=== PATIENT | male | born 1965 | race Caucasian/White ===

== ENCOUNTER 2019-12-06 15:48 | Outpatient (REF) | payer BC, SELFPAY | END 2019-12-06 15:49 | disposition home or self-care (01) | LOC: HO.LAB 15:48 | PROVIDERS: Visit Provider Internal Medicine | DX: Z20.828 Contact with and (suspected) exposure to other viral communicable diseases (principal) | CPT/HCPCS: 36415; 87635 ==

== ENCOUNTER 2020-01-09 09:47 | Outpatient (REF) | payer BC, SELFPAY | END 2020-01-09 09:48 | disposition home or self-care (01) | LOC: HO.LAB 09:47 | PROVIDERS: Visit Provider Internal Medicine | DX: Z20.828 Contact with and (suspected) exposure to other viral communicable diseases (principal) | CPT/HCPCS: C9803; U0003 ==

== ENCOUNTER 2024-08-21 09:47 | Outpatient (AMB) | payer BC, SELFPAY ==
--- NOTE | 2024-08-21 09:55 | A.OFFVIS_ITS ---
Vital Signs 3 08/21/24 09:56 Height 6 ft Weight 291 lb BMI 39.5 BP 126/76 Blood Pressure Location Rt brachial Position Sitting Pulse 72 Intake Visit Reasons: Mass on R shoulder blade Intake Note: Patient referred by pcp Melani Lopez PA-C for evaluation of a mass on the right shoulder blade. Present for 1yr. Pt c/o: tender, feels tight. Denies prior trauma. 2nd concerns: much smaller growth Lt shoulder. Present for 2yrs. No hx of skin CA. Crosscutter Required: No Accompanied by: Self / Same As Patient Allergies No Known Allergies Allergy (Verified 08/21/24 09:58) Medication List - Last Reconciled 08/21/24 by Kirby Boland MD allopurinol 100 mg PO DAILY losartan-hydrochlorothiazide 100-25 mg 1 tab PO DAILY oxycodone 10 mg PO BID PRN tirzepatide (weight loss) (Zepbound) 10 mg subcut QWEEK HPI Comments Details: 59-year-old male patient presenting with complaints of bilateral shoulder lumps. The larger of the 2 is located on the right shoulder and presented over a year ago. He reports some mild tightness over the lump denies any significant pain. Denies any previous injury or surgery at this location. The 2nd smaller lesion on the left shoulder has been present for 4-5 years in his causing mild soreness especially when raising his arm. He is interested in having both of the lesions removed. He denies a previous history of similar lesions. [facility] Medical History Urine finding Metabolic dysfunction-associated steatotic liver disease (MASLD) Chronic pain Obstructive sleep apnea syndrome in adult Insomnia Opioid dependence Morbid obesity Gouty arthropathy Carpal tunnel syndrome, bilateral HTN (hypertension) Surgical History Hx of carpal tunnel repair Family History Father Non-Hodgkin lymphoma Morrow' syndrome Social History Alcohol intake: current Alcohol intake frequency: holidays/special occasions only Patient Tobacco Use Status: Never used Tobacco Review of Systems Const All systems reviewed & are unremarkable except as noted in HPI and below Physical Exam Vital Signs: Last Vital Signs Pulse 72 08/21/24 09:56 BP 126/76 08/21/24 09:56 BMI result Body Mass Index 39.5 Const General: cooperative and no acute distress Nutritional Appearance: well nourished Orientation/consciousness: patient oriented x3 Limitations: no limitations HEENT Head: Yes normocephalic and Yes atraumatic Ears: hearing grossly normal bilaterally Resp Effort & Inspection: normal respiratory effort, no audible wheezes, no cough and no respiratory distress Cardio Jugular venous distension: no JVD GI Inspection: Yes normal to inspection Back/Spine/Pelvis Back/spine/pelvis image: 2 1. 9 cm round soft tissue mass, mobile within the subcutaneous tissue suggestive of a large lipoma 2. 3 cm soft tissue mass also within the subcutaneous tissue possibly a cyst or lipoma Skin Other: Warm, dry, no rash Neuro General: patient oriented x3 Extrem General: Yes full ROM and Yes no clubbing, cyanosis or edema Assessment & Plan Assessment & Plan (1) Lipoma of torso: Code(s): D17.1 - Benign lipomatous neoplasm of skin and subcutaneous tissue of trunk Category: Medical Plan 59-year-old male patient presenting with a large soft tissue mass located in the posterior right shoulder measuring approximately 9 cm in diameter most consistent with a lipoma. A 2nd lesion which may either be a cystic lesion or a lipoma measures approximately 3 cm in diameter. Both are amenable to excision. I reviewed the procedure, risks, and alternatives and he consents to excision of the bilateral shoulder lipomas. This will be performed as a short-stay surgery at his earliest convenience. Coding Level of Care Code New Pt Level 4 (28761) Diagnoses Lipoma of torso D17.1
[2024-08-21 09:56] VITALS: BP 126/76; PULSE 72; BMI 39.5
--- OUTSIDE RECORDS SUMMARY | 2024-08-21 10:52 | XMS_ITS | Patient Health Record ---
Author Organization [facility] [address] Address [address] [place] [address] Care Team Providers Care Rotary Drum Dyer Name Role Phone PATTI SEWELL Unavailable [phone] VEGA, ZOFIALAUREEN Unavailable [phone] PatiAnnia rivera Unavailable [phone] JULIÁNLACY Unavailable [phone] Allergies No Known Allergies Reason For Referral No Information Medications Medication SIG (Take, Route, Frequency, Duration) Notes Start Date End Date Status Semaglutide (1 MG/DOSE) 4 MG/3ML as directed Subcutaneous Not-Taking Wegovy 2.4 MG/0.75ML inject 2.4mg Subcutaneous once weekly for 30 days 07/05/2023 Not-Taking Zepbound 10 MG/0.5ML Inject 10mg Subcutaneous once weekly for 30 days 07/26/2024 Active Losartan Potassium 100 MG 1 tablet Orally Once a day Half tab daily Not-Taking Zepbound 7.5 MG/0.5ML Inject 7.5mg Subcutaneous weekly for 30 days Active oxyCODONE-Acetaminop hen 10-325 MG 1 tablet as needed Orally every 6 hrs Active Ondansetron 4 MG 1 tablet on the tongue and allow to dissolve Orally Once a day for 30 days 01/20/2023 Active Allopurinol 300 MG 1 tablet Orally Once a day Active Social History Tobacco Use: Social History Observation Description Date Details (start date - stop date) Never Smoker NA - NA Tobacco Use/Smoking Question Answer Notes Are you a nonsmoker Problems Problem Type SNOMED Code ICD Code Onset Dates Problem Status W/U Status Risk Notes Problem 827787972 Prediabetes (R73.03) Active confirmed Problem 01930635 Essential hypertension (I10) Active confirmed Problem 126182926 Obesity (BMI 30-39.9) (E66.9) Active confirmed Problem 913133753 BMI 39.0-39.9,adult (Z68.39) Active confirmed Problem 07972899 EVER on CPAP (G47.33) Active confirmed Problem 55098399 Chronic gout wit h tophus, unspecified cause, unspecified site (M1A.9XX1) Active confirmed Vital Signs Heart Rate 67 /min 07/26/2024 Oximetry 95 % 07/26/2024 Blood pressure diastolic 70 mm Hg 07/26/2024 Height 72 in 07/26/2024 Blood pressure systolic 116 mm Hg 07/26/2024 Weight 291.2 lbs 07/26/2024 BMI 39.49 kg/m2 07/26/2024 Encounters Encounter Location Date Provider Diagnosis [facility] [address] [address] 03/22/2024 LACY GALLEGO [facility] [address] [facility] [address] [place] [address] 10/06/2023 MARLIN VEGA BMI 40.0-44.9, adult Z68.41 ; Morbid (severe) obesity due to excess calories E66.01 and Back pain due to inflammatory process M54.89 [facility] [address] [address] 12/06/2023 LACY GALLEGO Morbid obesity E66.0 1 ; BMI 40.0-44.9, adult Z68.41 ; EVER on CPAP G47.33 ; Essential hypertension I10 ; Chronic gout with tophus, unspecified cause, unspecified site M1A.9XX1 ; Prediabetes R73.03 and Nutritional counseling Z71.3 [facility] [address] [address] 01/17/2024 LACY GALLEGO Morbid obesity E66.0 1 ; BMI 40.0-44.9, adult Z68.41 ; EVER on CPAP G47.33 ; Essential hypertension I10 ; Chronic gout with tophus, unspecified cause, unspecified site M1A.9XX1 ; Prediabetes R73.03 and Nutritional counseling Z71.3 [facility] [address] [address] 02/16/2024 LACY WHITEHAM Morbid obesity E66.0 1 ; BMI 40.0-44.9, adult Z68.41 ; EVER on CPAP G47.33 ; Essential hypertension I10 ; Chronic gout with tophus, unspecified cause, unspecified site M1A.9XX1 ; Prediabetes R73.03 and Nutritional counseling Z71.3 [facility] [address] [address] 04/19/2024 LACY WHITEHAM Morbid obesity E66.0 1 ; BMI 40.0-44.9, adult Z68.41 ; EVER on CPAP G47.33 ; Essential hypertension I10 ; Prediabetes R73.03 and Nutritional counseling Z71.3 [facility] [address] 05/24/2024 LACY WHITEHAM Morbid obesity E66.0 1 ; BMI 40.0-44.9, adult Z68.41 ; EVER on CPAP G47.33 ; Essential hypertension I10 ; Prediabetes R73.03 and Nutritional counseling Z71.3 [facility] [address] [address] 06/27/2024 LACY WHITEHAM Obesity (BMI 30-39.9 ) E66.9 ; BMI 39.0-39.9,adult Z68.39 ; EVER on CPAP G47.33 ; Essential hypertension I10 ; Prediabetes R73.03 ; Nutritional counseling Z71.3 and Soft tissue mass M79.89 [facility] [address] [address] 07/26/2024 LACY WHITEHAM Obesity (BMI 30-39.9 ) E66.9 ; BMI 39.0-39.9,adult Z68.39 ; EVER on CPAP G47.33 ; Essential hypertension I10 ; Prediabetes R73.03 and Nutritional counseling Z71.[address] [facility] [address] [place] [address] 10/06/2023 MARLIN VEGA [facility] [address] [address] 01/17/2024 MARLIN VEGA [facility] [address] [address] 06/21/2024 PATTI SEWELL [facility] [address] [facility] [address] [place] [address] 06/21/2024 PATTI SEWELL [facility] [address] [facility] [address] [place] [address] 06/23/2024 PATTI SEWELL [facility] [address] [address] 07/31/2024 LACY GALLEGO [facility] [address] [address] 08/02/2024 PATTI SEWELL Assessments Encounter Date Diagnosis (ICD Code) Assessment Notes Treatment Notes Treatment Clinical Notes Section Notes 10/06/2023 Morbid (severe) obesity due to excess calories (ICD-10 - E66.01) States he saw his primary care provider recently, had lab work done. States he was able to be taken off his Lossan joseen for high blood pressure. which he had been taking for 20 years. Patient is here for weight management followup. We focused on significance of healthy lifestyle changes. We talked about need to track steps, work on portion control, read food labels, get adequate sleep, give adequate rest of the body, meditate, frequent nutritious meals including vegetables and healthy choices of meat and elimination of refined carbohydrates. We also talked about mindfulness and mindful eating. Particular focus was on portion control continue current status weight training to prevent muscle mass loss Total time spent was 30 minutes with greater than 50% spent on counseling and coordinating care Plan. 10/06/2023 BMI 40.0-44.9, adult (ICD-10 - Z68.41) States he saw his primary care provider recently, had lab work done. States he was able to be taken off his Lossan joseen for high blood pressure. which he had been taking for 20 years. Patient is here for weight management followup. We focused on significance of healthy lifestyle changes. We talked about need to track steps, work on portion control, read food labels, get adequate sleep, give adequate rest of the body, meditate, frequent nutritious meals including vegetables and healthy choices of meat and elimination of refined carbohydrates. We also talked about mindfulness and mindful eating. Particular focus was on portion control continue current status weight training to prevent muscle mass loss Total time spent was 30 minutes with greater than 50% spent on counseling and coordinating care Plan. 12/06/2023 Morbid obesity (ICD-10 - E66.01) Eliezer is a 58-year-old male with a PMH of HTN, gout, prediabetes, EVER on CPAP that presents for weight management follow-up. Reviewed [facility] holistic and medical approach to weight loss with emphasis on lifestyle modification. Patient is educated that a healthy lifestyle aids in combating obesity as well as reducing the risk of developing obesity-related medical complications including but not limited to diabetes and cardiovascular disease. Detailed education provided about taking steps to initiate sustainable lifestyle changes including incorporating regular physical activity, making healthy diet choices, and prioritizing mental health. Information provided about literature including The Food Rules by Zack Veloz and Eat Fat Get Lean by Dr Gray Alvarenga. Handouts including lifestyle checklist, protein content of food, low calorie snacks, and cholesterol information sheet provided. Diagnostic testing/ SECA scale offered. Discussed the importance of regular SECA scale measurements to ensure healthy weight loss. Patient established care as weight management patient 08/03/2022 his weight was 346. 12/06/2023:Weight: 296, BMI: 40.14. Reviewed SECA/goals for implementing sustainable lifestyle changes. Patient is encouraged to increase physical activity, goal 8-10k steps/day. Also discussed the importance of strength training with proper safety/body mechanics for maintenance of muscle mass/bone health. Discussed supplements to aid with sleep including cortisol administrative office manager, melatonin, magnesium glycinate. Patient encouraged to drink 60-80oz water/day. Reviewed the importance of adequate caloric/protein intake in the setting of medication-induce d appetite suppression. Goal of 100g protien/day. Plan to continue Wegovy 2.4 mg SC weekly. 10/06/2023: Weight: 295, BMI: 40.13. All questions answered to the patients satisfaction. Patient demonstrates understanding of diagnosis and treatments discussed. Follow-up in 4 weeks, sooner should any questions/concern s arise. Case discussed with collaborating physician Marcos Vega who has reviewed the assessment/plan. Chart, medications, labs, and vital signs reviewed. Dictation completed with the use of [employer] voice recognition software, prone to medical misidentification s and grammatical errors. All errors are unintentional. Although the practitioner does try to identify and correct errors, some may be present. Please do not hesitate to contact the practitioner for clarification. 12/06/2023 BMI 40.0-44.9, adult (ICD-10 - Z68.41) Eliezer is a 58-year-old male with a PMH of HTN, gout, prediabetes, EVER on CPAP that presents for weight management follow-up. Reviewed [facility] holistic and medical approach to weight loss with emphasis on lifestyle modification. Patient is educated that a healthy lifestyle aids in combating obesity as well as reducing the risk of developing obesity-related medical complications including but not limited to diabetes and cardiovascular disease. Detailed education provided about taking steps to initiate sustainable lifestyle changes including incorporating regular physical activity, making healthy diet choices, and prioritizing mental health. Information provided about literature including The Food Rules by Zack Veloz and Eat Fat Get Lean by Dr Gray Alvarenga. Handouts including lifestyle checklist, protein content of food, low calorie snacks, and cholesterol information sheet provided. Diagnostic testing/ SECA scale offered. Discussed the importance of regular SECA scale measurements to ensure healthy weight loss. Patient established care as weight management patient 08/03/2022 his weight was 346. 12/06/2023:Weight: 296, BMI: 40.14. Reviewed SECA/goals for implementing sustainable lifestyle changes. Patient is encouraged to increase physical activity, goal 8-10k steps/day. Also discussed the importance of strength training with proper safety/body mechanics for maintenance of muscle mass/bone health. Discussed supplements to aid with sleep including cortisol administrative office manager, melatonin, magnesium glycinate. Patient encouraged to drink 60-80oz water/day. Reviewed the importance of adequate caloric/protein intake in the setting of medication-induce d appetite suppression. Goal of 100g protien/day. Plan to continue Wegovy 2.4 mg SC weekly. 10/06/2023: Weight: 295, BMI: 40.13. All questions answered to the patients satisfaction. Patient demonstrates understanding of diagnosis and treatments discussed. Follow-up in 4 weeks, sooner should any questions/concern s arise. Case discussed with collaborating physician Marcos Vega who has reviewed the assessment/plan. Chart, medications, labs, and vital signs reviewed. Dictation completed with the use of [employer] voice recognition software, prone to medical misidentification s and grammatical errors. All errors are unintentional. Although the practitioner does try to identify and correct errors, some may be present. Please do not hesitate to contact the practitioner for clarification. 01/17/2024 Morbid obesity (ICD-10 - E66.01) Eliezer is a 58-year-old male with a PMH of HTN, gout, prediabetes, EVER on CPAP that presents for weight management follow-up. Reviewed [facility] holistic and medical approach to weight loss with emphasis on lifestyle modification. 01/17/2024: Weight: 297, BMI: 40.3. SECA reviewed, relatively unchanged. The patient is encouraged to continue exercising regularly with added strength training for maintenance of muscle mass/bone health. Reviewed the importance of limiting carbs, sugars, etc. and considering healthier alternatives. The patient establish care with 07/2022 at which time he weighed 346 pounds. The patient has successfully been able to lose nearly 50 pounds with a combination of lifestyle changes and use of weight loss medications. As the patient has been on the maximum dose of Wegovy for 7 months with minimal weight loss patient would like to pursue an alternative medication, Zepbound. The patient is a great candidate for this medication, Rx for Zepbound 2.5 mg SC weekly sent to pharmacy. Reviewed proper use/administratio n and side effects. Reviewed expectations for PA process/insurance coverage. After consultation and careful review of medical history, this patient would benefit from Zepbound based off of the following criteria met: Patient is over the age of 18 with a BMI of 40. Additional comorbidities include HTN, prediabetes, EVER on CPAP. Patient has trialed other methods of weight loss including improving diet and exercise without success over at least three months. This medication is prescribed by or in consultation with a board-certified obesity and weight management physician (Dr. Marlin Vega or Dr. Lucian Vega). 12/06/2023:Weight: 296, BMI: 40.14. Reviewed SECA/goals for implementing sustainable lifestyle changes. Patient is encouraged to increase physical activity, goal 8-10k steps/day. Also discussed the importance of strength training with proper safety/body mechanics for maintenance of muscle mass/bone health. Discussed supplements to aid with sleep including cortisol administrative office manager, melatonin, magnesium glycinate. Patient encouraged to drink 60-80oz water/day. Reviewed the importance of adequate caloric/protein intake in the setting of medication-induce d appetite suppression. Goal of 100g protein/day. Plan to continue Wegovy 2.4 mg SC weekly. 10/06/2023: Weight: 295, BMI: 40.13. All questions answered to the patient's satisfaction. Patient demonstrates understanding of diagnosis and treatments discussed. Follow-up in 4 weeks, sooner should any questions/concern s arise. Case discussed with collaborating physician Markell Vega who has reviewed the assessment/plan. Chart, medications, labs, and vital signs reviewed. Dictation completed with the use of [employer] voice recognition software, prone to medical misidentification s and grammatical errors. All errors are unintentional. Although the practitioner does try to identify and correct errors, some may be present. Please do not hesitate to contact the practitioner for clarification. Total time spent was 25 minutes with >50% on coordination of care and patient education. 02/16/2024 Morbid obesity (ICD-10 - E66.01) Eliezer is a 58-year-old male with a PMH of HTN, gout, prediabetes, EVER on CPAP that presents for weight management follow-up. Reviewed [facility] holistic and medical approach to weight loss with emphasis on lifestyle modification. 02/16/2024: Weight: 295, BMI: 40. SECA reviewed, Unchanged, down a pound of muscle mass. The patient continues to have above average muscle mass. He is encouraged to continue practicing portion control and prioritizing intake of protein, fruits, vegetables, whole grains, water, etc. Patient is encouraged to continue walking regularly, discussed the importance of adding strength training for continued maintenance of muscle mass. Discussed the importance of prioritizing mental health and limiting stress when possible. Patient still has 1 dose of 2.5 mg left to take, will send for increased dose of Zepbound at 5 mg SC weekly with plan to follow-up in 5 weeks. 01/17/2024: Weight: 297, BMI: 40.3. SECA reviewed, relatively unchanged. The patient is encouraged to continue exercising regularly with added strength training for maintenance of muscle mass/bone health. Reviewed the importance of limiting carbs, sugars, etc. and considering healthier alternatives. The patient establish care with us 07/2022 at which time he weighed 346 pounds. The patient has successfully been able to lose nearly 50 pounds with a combination of lifestyle changes and use of weight loss medications. As the patient has been on the maximum dose of Wegovy for 7 months with minimal weight loss patient would like to pursue an alternative medication, Zepbound. The patient is a great candidate for this medication, Rx for Zepbound 2.5 mg SC weekly sent to pharmacy. Reviewed proper use/administratio n and side effects. Reviewed expectations for PA process/insurance coverage. After consultation and careful review of medical history, this patient would benefit from Zepbound based off of the following criteria met: Patient is over the age of 16 with a BMI of 40. Additional comorbidities include HTN, prediabetes, EVER on CPAP. Patient has trialed other methods of weight loss including improving diet and exercise without success over at least three months. This medication is prescribed by or in consultation with a board-certified obesity and weight management physician (Dr. Marlin Vega or Dr. Lucian Vega). 12/06/2023:Weight: 296, BMI: 40.14. Reviewed SECA/goals for implementing sustainable lifestyle changes. Patient is encouraged to increase physical activity, goal 8-10k steps/day. Also discussed the importance of strength training with proper safety/body mechanics for maintenance of muscle mass/bone health. Discussed supplements to aid with sleep including cortisol administrative office manager, melatonin, magnesium glycinate. Patient encouraged to drink 60-80oz water/day. Reviewed the importance of adequate caloric/protein intake in the setting of medication-induce d appetite suppression. Goal of 100g protein/day. Plan to continue Wegovy 2.4 mg SC weekly. 10/06/2023: Weight: 295, BMI: 40.13. All questions answered to the patient's satisfaction. Patient demonstrates understanding of diagnosis and treatments discussed. Follow-up in 4 weeks, sooner should any questions/concern s arise. Case discussed with collaborating physician Marcos Vega who has reviewed the assessment/plan. Chart, medications, labs, and vital signs reviewed. Dictation completed with the use of [employer] voice recognition software, prone to medical misidentification s and grammatical errors. All errors are unintentional. Although the practitioner does try to identify and correct errors, some may be present. Please do not hesitate to contact the practitioner for clarification. Total time spent was 30 minutes with >50% on coordination of care and patient education. 04/19/2024 Morbid obesity (ICD-10 - E66.01) Eliezer is a 59-year-old male with a PMH of HTN, gout, prediabetes, EVER on CPAP that presents for weight management follow-up. Reviewed [facility] holistic and medical approach to weight loss with emphasis on lifestyle modification. 04/19/2024: Weight: 297, BMI: 40.3. Weight up 2 pounds.SECA reviewed, reveals 1 pound of fat gain and 1 pound of muscle mass gain. Patient is encouraged to continue exercising regularly. Discussed the importance of added strength training for maintenance of muscle mass. He is additionally encouraged to continue making health-conscious diet choices/practicin g portion control. Plan to reinitiate treatment with Zepbound 5 mg SC weekly and follow-up in 1 month. 02/16/2024: Weight: 295, BMI: 40. SECA reviewed, Unchanged, down a pound of muscle mass. The patient continues to have above average muscle mass. He is encouraged to continue practicing portion control and prioritizing intake of protein, fruits, vegetables, whole grains, water, etc. Patient is encouraged to continue walking regularly, discussed the importance of adding strength training for continued maintenance of muscle mass. Discussed the importance of prioritizing mental health and limiting stress when possible. Patient still has 1 dose of 2.5 mg left to take, will send for increased dose of Zepbound at 5 mg SC weekly with plan to follow-up in 5 weeks. 01/17/2024: Weight: 297, BMI: 40.3. SECA reviewed, relatively unchanged. The patient is encouraged to continue exercising regularly with added strength training for maintenance of muscle mass/bone health. Reviewed the importance of limiting carbs, sugars, etc. and considering healthier alternatives. The patient establish care with us 07/2022 at which time he weighed 346 pounds. The patient has successfully been able to lose nearly 50 pounds with a combination of lifestyle changes and use of weight loss medications. As the patient has been on the maximum dose of Wegovy for 7 months with minimal weight loss patient would like to pursue an alternative medication, Zepbound. The patient is a great candidate for this medication, Rx for Zepbound 2.5 mg SC weekly sent to pharmacy. Reviewed proper use/administratio n and side effects. Reviewed expectations for PA process/insurance coverage. After consultation and careful review of medical history, this patient would benefit from Zepbound based off of the following criteria met: Patient is over the age of 16 with a BMI of 40. Additional comorbidities include HTN, prediabetes, EVER on CPAP. Patient has trialed other methods of weight loss including improving diet and exercise without success over at least three months. This medication is prescribed by or in consultation with a board-certified obesity and weight management physician (Dr. Marlin Vega or Dr. Lucian Vega). 12/06/2023:Weight: 296, BMI: 40.14. Reviewed SECA/goals for implementing sustainable lifestyle changes. Patient is encouraged to increase physical activity, goal 8-10k steps/day. Also discussed the importance of strength training with proper safety/body mechanics for maintenance of muscle mass/bone health. Discussed supplements to aid with sleep including cortisol administrative office manager, melatonin, magnesium glycinate. Patient encouraged to drink 60-80oz water/day. Reviewed the importance of adequate caloric/protein intake in the setting of medication-induce d appetite suppression. Goal of 100g protein/day. Plan to continue Wegovy 2.4 mg SC weekly. 10/06/2023: Weight: 295, BMI: 40.13. All questions answered to the patient's satisfaction. Patient demonstrates understanding of diagnosis and treatments discussed. Follow-up in 4 weeks, sooner should any questions/concern s arise. Case discussed with collaborating physician Marcos Vega who has reviewed the assessment/plan. Chart, medications, labs, and vital signs reviewed. Dictation completed with the use of [employer] voice recognition software, prone to medical misidentification s and grammatical errors. All errors are unintentional. Although the practitioner does try to identify and correct errors, some may be present. Please do not hesitate to contact the practitioner for clarification. Total time spent was 30 minutes with >50% on coordination of care and patient education. 04/19/2024 BMI 40.0-44.9, adult (ICD-10 - Z68.41) Eliezer is a 59-year-old male with a PMH of HTN, gout, prediabetes, EVER on CPAP that presents for weight management follow-up. Reviewed [facility] holistic and medical approach to weight loss with emphasis on lifestyle modification. 04/19/2024: Weight: 297, BMI: 40.3. Weight up 2 pounds.SECA reviewed, reveals 1 pound of fat gain and 1 pound of muscle mass gain. Patient is encouraged to continue exercising regularly. Discussed the importance of added strength training for maintenance of muscle mass. He is additionally encouraged to continue making health-conscious diet choices/practicin g portion control. Plan to reinitiate treatment with Zepbound 5 mg SC weekly and follow-up in 1 month. 02/16/2024: Weight: 295, BMI: 40. SECA reviewed, Unchanged, down a pound of muscle mass. The patient continues to have above average muscle mass. He is encouraged to continue practicing portion control and prioritizing intake of protein, fruits, vegetables, whole grains, water, etc. Patient is encouraged to continue walking regularly, discussed the importance of adding strength training for continued maintenance of muscle mass. Discussed the importance of prioritizing mental health and limiting stress when possible. Patient still has 1 dose of 2.5 mg left to take, will send for increased dose of Zepbound at 5 mg SC weekly with plan to follow-up in 5 weeks. 01/17/2024: Weight: 297, BMI: 40.3. SECA reviewed, relatively unchanged. The patient is encouraged to continue exercising regularly with added strength training for maintenance of muscle mass/bone health. Reviewed the importance of limiting carbs, sugars, etc. and considering healthier alternatives. The patient establish care with us 07/2022 at which time he weighed 346 pounds. The patient has successfully been able to lose nearly 50 pounds with a combination of lifestyle changes and use of weight loss medications. As the patient has been on the maximum dose of Wegovy for 7 months with minimal weight loss patient would like to pursue an alternative medication, Zepbound. The patient is a great candidate for this medication, Rx for Zepbound 2.5 mg SC weekly sent to pharmacy. Reviewed proper use/administratio n and side effects. Reviewed expectations for PA process/insurance coverage. After consultation and careful review of medical history, this patient would benefit from Zepbound based off of the following criteria met: Patient is over the age of 16 with a BMI of 40. Additional comorbidities include HTN, prediabetes, EVER on CPAP. Patient has trialed other methods of weight loss including improving diet and exercise without success over at least three months. This medication is prescribed by or in consultation with a board-certified obesity and weight management physician (Dr. Marlin Vega or Dr. Lucian Vega). 12/06/2023:Weight: 296, BMI: 40.14. Reviewed SECA/goals for implementing sustainable lifestyle changes. Patient is encouraged to increase physical activity, goal 8-10k steps/day. Also discussed the importance of strength training with proper safety/body mechanics for maintenance of muscle mass/bone health. Discussed supplements to aid with sleep including cortisol administrative office manager, melatonin, magnesium glycinate. Patient encouraged to drink 60-80oz water/day. Reviewed the importance of adequate caloric/protein intake in the setting of medication-induce d appetite suppression. Goal of 100g protein/day. Plan to continue Wegovy 2.4 mg SC weekly. 10/06/2023: Weight: 295, BMI: 40.13. All questions answered to the patient's satisfaction. Patient demonstrates understanding of diagnosis and treatments discussed. Follow-up in 4 weeks, sooner should any questions/concern s arise. Case discussed with collaborating physician Marcos Vega who has reviewed the assessment/plan. Chart, medications, labs, and vital signs reviewed. Dictation completed with the use of [employer] voice recognition software, prone to medical misidentification s and grammatical errors. All errors are unintentional. Although the practitioner does try to identify and correct errors, some may be present. Please do not hesitate to contact the practitioner for clarification. Total time spent was 30 minutes with >50% on coordination of care and patient education. 05/24/2024 Morbid obesity (ICD-10 - E66.01) Eliezer is a 59-year-old male with a PMH of HTN, gout, prediabetes, EVER on CPAP that presents for weight management follow-up. Reviewed [facility] holistic and medical approach to weight loss with emphasis on lifestyle modification. 05/24/2024: Weight: 298, BMI: 40. Patient up 1 pound. Seca reviewed, reveals 2 pounds of fat loss and maintenance of muscle mass. Patient is encouraged to continue making health-conscious diet choices. Discussed the importance of eating regularly with prioritization of protein intake-goal of 90 g/day. Patient is encouraged to continue exercising regularly and hydrating adequately. Plan increase dose of Zepbound to 7.5 mg SC weekly and follow-up in 1 month. 04/19/2024: Weight: 297, BMI: 40.3. Weight up 2 pounds.SECA reviewed, reveals 1 pound of fat gain and 1 pound of muscle mass gain. Patient is encouraged to continue exercising regularly. Discussed the importance of added strength training for maintenance of muscle mass. He is additionally encouraged to continue making health-conscious diet choices/practicin g portion control. Plan to reinitiate treatment with Zepbound 5 mg SC weekly and follow-up in 1 month. 02/16/2024: Weight: 295, BMI: 40. SECA reviewed, Unchanged, down a pound of muscle mass. The patient continues to have above average muscle mass. He is encouraged to continue practicing portion control and prioritizing intake of protein, fruits, vegetables, whole grains, water, etc. Patient is encouraged to continue walking regularly, discussed the importance of adding strength training for continued maintenance of muscle mass. Discussed the importance of prioritizing mental health and limiting stress when possible. Patient still has 1 dose of 2.5 mg left to take, will send for increased dose of Zepbound at 5 mg SC weekly with plan to follow-up in 5 weeks. 01/17/2024: Weight: 297, BMI: 40.3. SECA reviewed, relatively unchanged. The patient is encouraged to continue exercising regularly with added strength training for maintenance of muscle mass/bone health. Reviewed the importance of limiting carbs, sugars, etc. and considering healthier alternatives. The patient establish care with 07/2022 at which time he weighed 346 pounds. The patient has successfully been able to lose nearly 50 pounds with a combination of lifestyle changes and use of weight loss medications. As the patient has been on the maximum dose of Wegovy for 7 months with minimal weight loss patient would like to pursue an alternative medication, Zepbound. The patient is a great candidate for this medication, Rx for Zepbound 2.5 mg SC weekly sent to pharmacy. Reviewed proper use/administratio n and side effects. Reviewed expectations for PA process/insurance coverage. After consultation and careful review of medical history, this patient would benefit from Zepbound based off of the following criteria met: Patient is over the age of 16 with a BMI of 40. Additional comorbidities include HTN, prediabetes, EVER on CPAP. Patient has trialed other methods of weight loss including improving diet and exercise without success over at least three months. This medication is prescribed by or in consultation with a board-certified obesity and weight management physician (Dr. Marlin Vega or Dr. Lucian Vega). 12/06/2023:Weight: 296, BMI: 40.14. Reviewed SECA/goals for implementing sustainable lifestyle changes. Patient is encouraged to increase physical activity, goal 8-10k steps/day. Also discussed the importance of strength training with proper safety/body mechanics for maintenance of muscle mass/bone health. Discussed supplements to aid with sleep including cortisol administrative office manager, melatonin, magnesium glycinate. Patient encouraged to drink 60-80oz water/day. Reviewed the importance of adequate caloric/protein intake in the setting of medication-induce d appetite suppression. Goal of 100g protein/day. Plan to continue Wegovy 2.4 mg SC weekly. 10/06/2023: Weight: 295, BMI: 40.13. All questions answered to the patient's satisfaction. Patient demonstrates understanding of diagnosis and treatments discussed. Follow-up in 4 weeks, sooner should any questions/concern s arise. Case discussed with collaborating physician Marcos Vega who has reviewed the assessment/plan. Chart, medications, labs, and vital signs reviewed. Dictation completed with the use of [employer] voice recognition software, prone to medical misidentification s and grammatical errors. All errors are unintentional. Although the practitioner does try to identify and correct errors, some may be present. Please do not hesitate to contact the practitioner for clarification. Total time spent was 30 minutes with >50% on coordination of care and patient education. 06/27/2024 Obesity (BMI 30-39.9) (ICD-10 - E66.9) Eliezer is a 59-year-old male with a PMH of HTN, gout, prediabetes, EVER on CPAP that presents for weight management follow-up. Reviewed [facility] holistic and medical approach to weight loss with emphasis on lifestyle modification. 06/27/2024: Weight: 293, BMI: 39.7. Patient down 5 pounds.SECA reviewed, reveals loss of muscle mass only. Discussed importance of prioritizing protein intake, goal 100 g/day. The patient is also encouraged to incorporate strength training goal of preservation of adequate muscle mass. Plan to continue Zepbound 7.5 mg SC weekly and follow-up in 1 month. #Mass: On exam there is a 10 cm circular mass protruding from the right shoulder. It is nontender to palpation without overlying erythema/edema. ? Lipoma/soft tissue mass. Patient encouraged to contact his primary care provider for continued evaluation. 05/24/2024: Weight: 298, BMI: 40. Patient up 1 pound. Seca reviewed, reveals 2 pounds of fat loss and maintenance of muscle mass. Patient is encouraged to continue making health-conscious diet choices. Discussed the importance of eating regularly with prioritization of protein intake-goal of 90 g/day. Patient is encouraged to continue exercising regularly and hydrating adequately. Plan increase dose of Zepbound to 7.5 mg SC weekly and follow-up in 1 month. 04/19/2024: Weight: 297, BMI: 40.3. Weight up 2 pounds.SECA reviewed, reveals 1 pound of fat gain and 1 pound of muscle mass gain. Patient is encouraged to continue exercising regularly. Discussed the importance of added strength training for maintenance of muscle mass. He is additionally encouraged to continue making health-conscious diet choices/practicin g portion control. Plan to reinitiate treatment with Zepbound 5 mg SC weekly and follow-up in 1 month. 02/16/2024: Weight: 295, BMI: 40. SECA reviewed, Unchanged, down a pound of muscle mass. The patient continues to have above average muscle mass. He is encouraged to continue practicing portion control and prioritizing intake of protein, fruits, vegetables, whole grains, water, etc. Patient is encouraged to continue walking regularly, discussed the importance of adding strength training for continued maintenance of muscle mass. Discussed the importance of prioritizing mental health and limiting stress when possible. Patient still has 1 dose of 2.5 mg left to take, will send for increased dose of Zepbound at 5 mg SC weekly with plan to follow-up in 5 weeks. 01/17/2024: Weight: 297, BMI: 40.3. SECA reviewed, relatively unchanged. The patient is encouraged to continue exercising regularly with added strength training for maintenance of muscle mass/bone health. Reviewed the importance of limiting carbs, sugars, etc. and considering healthier alternatives. The patient establish care with 07/2022 at which time he weighed 346 pounds. The patient has successfully been able to lose nearly 50 pounds with a combination of lifestyle changes and use of weight loss medications. As the patient has been on the maximum dose of Wegovy for 7 months with minimal weight loss patient would like to pursue an alternative medication, Zepbound. The patient is a great candidate for this medication, Rx for Zepbound 2.5 mg SC weekly sent to pharmacy. Reviewed proper use/administratio n and side effects. Reviewed expectations for PA process/insurance coverage. After consultation and careful review of medical history, this patient would benefit from Zepbound based off of the following criteria met: Patient is over the age of 16 with a BMI of 40. Additional comorbidities include HTN, prediabetes, EVER on CPAP. Patient has trialed other methods of weight loss including improving diet and exercise without success over at least three months. This medication is prescribed by or in consultation with a board-certified obesity and weight management physician (Dr. Marlin Vega or Dr. Lucian Vega). 12/06/2023:Weight: 296, BMI: 40.14. Reviewed SECA/goals for implementing sustainable lifestyle changes. Patient is encouraged to increase physical activity, goal 8-10k steps/day. Also discussed the importance of strength training with proper safety/body mechanics for maintenance of muscle mass/bone health. Discussed supplements to aid with sleep including cortisol administrative office manager, melatonin, magnesium glycinate. Patient encouraged to drink 60-80oz water/day. Reviewed the importance of adequate caloric/protein intake in the setting of medication-induce d appetite suppression. Goal of 100g protein/day. Plan to continue Wegovy 2.4 mg SC weekly. 10/06/2023: Weight: 295, BMI: 40.13. All questions answered to the patient's satisfaction. Patient demonstrates understanding of diagnosis and treatments discussed. Follow-up in 4 weeks, sooner should any questions/concern s arise. Case discussed with collaborating physician Marcos Vega who has reviewed the assessment/plan. Chart, medications, labs, and vital signs reviewed. Dictation completed with the use of [employer] voice recognition software, prone to medical misidentification s and grammatical errors. All errors are unintentional. Although the practitioner does try to identify and correct errors, some may be present. Please do not hesitate to contact the practitioner for clarification. Total time spent was 30 minutes with >50% on coordination of care and patient education. 06/27/2024 BMI 39.0-39.9,adult (ICD-10 - Z68.39) Eliezer is a 59-year-old male with a PMH of HTN, gout, prediabetes, EVER on CPAP that presents for weight management follow-up. Reviewed [facility] holistic and medical approach to weight loss with emphasis on lifestyle modification. 06/27/2024: Weight: 293, BMI: 39.7. Patient down 5 pounds.SECA reviewed, reveals loss of muscle mass only. Discussed importance of prioritizing protein intake, goal 100 g/day. The patient is also encouraged to incorporate strength training goal of preservation of adequate muscle mass. Plan to continue Zepbound 7.5 mg SC weekly and follow-up in 1 month. #Mass: On exam there is a 10 cm circular mass protruding from the right shoulder. It is nontender to palpation without overlying erythema/edema. ? Lipoma/soft tissue mass. Patient encouraged to contact his primary care provider for continued evaluation. 05/24/2024: Weight: 298, BMI: 40. Patient up 1 pound. Seca reviewed, reveals 2 pounds of fat loss and maintenance of muscle mass. Patient is encouraged to continue making health-conscious diet choices. Discussed the importance of eating regularly with prioritization of protein intake-goal of 90 g/day. Patient is encouraged to continue exercising regularly and hydrating adequately. Plan increase dose of Zepbound to 7.5 mg SC weekly and follow-up in 1 month. 04/19/2024: Weight: 297, BMI: 40.3. Weight up 2 pounds.SECA reviewed, reveals 1 pound of fat gain and 1 pound of muscle mass gain. Patient is encouraged to continue exercising regularly. Discussed the importance of added strength training for maintenance of muscle mass. He is additionally encouraged to continue making health-conscious diet choices/practicin g portion control. Plan to reinitiate treatment with Zepbound 5 mg SC weekly and follow-up in 1 month. 02/16/2024: Weight: 295, BMI: 40. SECA reviewed, Unchanged, down a pound of muscle mass. The patient continues to have above average muscle mass. He is encouraged to continue practicing portion control and prioritizing intake of protein, fruits, vegetables, whole grains, water, etc. Patient is encouraged to continue walking regularly, discussed the importance of adding strength training for continued maintenance of muscle mass. Discussed the importance of prioritizing mental health and limiting stress when possible. Patient still has 1 dose of 2.5 mg left to take, will send for increased dose of Zepbound at 5 mg SC weekly with plan to follow-up in 5 weeks. 01/17/2024: Weight: 297, BMI: 40.3. SECA reviewed, relatively unchanged. The patient is encouraged to continue exercising regularly with added strength training for maintenance of muscle mass/bone health. Reviewed the importance of limiting carbs, sugars, etc. and considering healthier alternatives. The patient establish care with 07/2022 at which time he weighed 346 pounds. The patient has successfully been able to lose nearly 50 pounds with a combination of lifestyle changes and use of weight loss medications. As the patient has been on the maximum dose of Wegovy for 7 months with minimal weight loss patient would like to pursue an alternative medication, Zepbound. The patient is a great candidate for this medication, Rx for Zepbound 2.5 mg SC weekly sent to pharmacy. Reviewed proper use/administratio n and side effects. Reviewed expectations for PA process/insurance coverage. After consultation and careful review of medical history, this patient would benefit from Zepbound based off of the following criteria met: Patient is over the age of 16 with a BMI of 40. Additional comorbidities include HTN, prediabetes, EVER on CPAP. Patient has trialed other methods of weight loss including improving diet and exercise without success over at least three months. This medication is prescribed by or in consultation with a board-certified obesity and weight management physician (Dr. Marlin Vega or Dr. Lucian Vega). 12/06/2023:Weight: 296, BMI: 40.14. Reviewed SECA/goals for implementing sustainable lifestyle changes. Patient is encouraged to increase physical activity, goal 8-10k steps/day. Also discussed the importance of strength training with proper safety/body mechanics for maintenance of muscle mass/bone health. Discussed supplements to aid with sleep including cortisol administrative office manager, melatonin, magnesium glycinate. Patient encouraged to drink 60-80oz water/day. Reviewed the importance of adequate caloric/protein intake in the setting of medication-induce d appetite suppression. Goal of 100g protein/day. Plan to continue Wegovy 2.4 mg SC weekly. 10/06/2023: Weight: 295, BMI: 40.13. All questions answered to the patient's satisfaction. Patient demonstrates understanding of diagnosis and treatments discussed. Follow-up in 4 weeks, sooner should any questions/concern s arise. Case discussed with collaborating physician Marcos Vega who has reviewed the assessment/plan. Chart, medications, labs, and vital signs reviewed. Dictation completed with the use of [employer] voice recognition software, prone to medical misidentification s and grammatical errors. All errors are unintentional. Although the practitioner does try to identify and correct errors, some may be present. Please do not hesitate to contact the practitioner for clarification. Total time spent was 30 minutes with >50% on coordination of care and patient education. 07/26/2024 Obesity (BMI 30-39.9) (ICD-10 - E66.9) Eliezer is a 59-year-old male with a PMH of HTN, gout, prediabetes, EVER on CPAP that presents for weight management follow-up. Reviewed [facility] holistic and medical approach to weight loss with emphasis on lifestyle modification. 07/26/2024: Weight: 291.2, BMI: 39.5. Patient down 2 pounds. SECA reviewed, relatively unchanged. Patient encouraged to continue making health-conscious diet choices, recommending increasing protein intake and limiting carbs/starches. He is encouraged to continue walking regularly with added strength training 2-3 times weekly. Will increase dose of Zepbound to 10 mg SC weekly and follow-up in 4-6 weeks. 06/27/2024: Weight: 293, BMI: 39.7. Patient down 5 pounds.SECA reviewed, reveals loss of muscle mass only. Discussed importance of prioritizing protein intake, goal 100 g/day. The patient is also encouraged to incorporate strength training goal of preservation of adequate muscle mass. Plan to continue Zepbound 7.5 mg SC weekly and follow-up in 1 month. 05/24/2024: Weight: 298, BMI: 40. Patient up 1 pound. Seca reviewed, reveals 2 pounds of fat loss and maintenance of muscle mass. Patient is encouraged to continue making health-conscious diet choices. Discussed the importance of eating regularly with prioritization of protein intake-goal of 90 g/day. Patient is encouraged to continue exercising regularly and hydrating adequately. Plan increase dose of Zepbound to 7.5 mg SC weekly and follow-up in 1 month. 04/19/2024: Weight: 297, BMI: 40.3. Weight up 2 pounds.SECA reviewed, reveals 1 pound of fat gain and 1 pound of muscle mass gain. Patient is encouraged to continue exercising regularly. Discussed the importance of added strength training for maintenance of muscle mass. He is additionally encouraged to continue making health-conscious diet choices/practicin g portion control. Plan to reinitiate treatment with Zepbound 5 mg SC weekly and follow-up in 1 month. 02/16/2024: Weight: 295, BMI: 40. SECA reviewed, Unchanged, down a pound of muscle mass. The patient continues to have above average muscle mass. He is encouraged to continue practicing portion control and prioritizing intake of protein, fruits, vegetables, whole grains, water, etc. Patient is encouraged to continue walking regularly, discussed the importance of adding strength training for continued maintenance of muscle mass. Discussed the importance of prioritizing mental health and limiting stress when possible. Patient still has 1 dose of 2.5 mg left to take, will send for increased dose of Zepbound at 5 mg SC weekly with plan to follow-up in 5 weeks. 01/17/2024: Weight: 297, BMI: 40.3. SECA reviewed, relatively unchanged. The patient is encouraged to continue exercising regularly with added strength training for maintenance of muscle mass/bone health. Reviewed the importance of limiting carbs, sugars, etc. and considering healthier alternatives. The patient establish care with 07/2022 at which time he weighed 346 pounds. The patient has successfully been able to lose nearly 50 pounds with a combination of lifestyle changes and use of weight loss medications. As the patient has been on the maximum dose of Wegovy for 7 months with minimal weight loss patient would like to pursue an alternative medication, Zepbound. The patient is a great candidate for this medication, Rx for Zepbound 2.5 mg SC weekly sent to pharmacy. Reviewed proper use/administratio n and side effects. Reviewed expectations for PA process/insurance coverage. After consultation and careful review of medical history, this patient would benefit from Zepbound based off of the following criteria met: Patient is over the age of 16 with a BMI of 40. Additional comorbidities include HTN, prediabetes, EVER on CPAP. Patient has trialed other methods of weight loss including improving diet and exercise without success over at least three months. This medication is prescribed by or in consultation with a board-certified obesity and weight management physician (Dr. Marlin Vega or Dr. Lucian Vega). 12/06/2023:Weight: 296, BMI: 40.14. Reviewed SECA/goals for implementing sustainable lifestyle changes. Patient is encouraged to increase physical activity, goal 8-10k steps/day. Also discussed the importance of strength training with proper safety/body mechanics for maintenance of muscle mass/bone health. Discussed supplements to aid with sleep including cortisol administrative office manager, melatonin, magnesium glycinate. Patient encouraged to drink 60-80oz water/day. Reviewed the importance of adequate caloric/protein intake in the setting of medication-induce d appetite suppression. Goal of 100g protein/day. Plan to continue Wegovy 2.4 mg SC weekly. 10/06/2023: Weight: 295, BMI: 40.13. All questions answered to the patient's satisfaction. Patient demonstrates understanding of diagnosis and treatments discussed. Follow-up in 4 weeks, sooner should any questions/concern s arise. Case discussed with collaborating physician Marcos Vega who has reviewed the assessment/plan. Chart, medications, labs, and vital signs reviewed. Dictation completed with the use of [employer] voice recognition software, prone to medical misidentification s and grammatical errors. All errors are unintentional. Although the practitioner does try to identify and correct errors, some may be present. Please do not hesitate to contact the practitioner for clarification. Total time spent was 30 minutes with >50% on coordination of care and patient education. 07/26/2024 BMI 39.0-39.9,adult (ICD-10 - Z68.39) Eliezer is a 59-year-old male with a PMH of HTN, gout, prediabetes, EVER on CPAP that presents for weight management follow-up. Reviewed [facility] holistic and medical approach to weight loss with emphasis on lifestyle modification. 07/26/2024: Weight: 291.2, BMI: 39.5. Patient down 2 pounds. SECA reviewed, relatively unchanged. Patient encouraged to continue making health-conscious diet choices, recommending increasing protein intake and limiting carbs/starches. He is encouraged to continue walking regularly with added strength training 2-3 times weekly. Will increase dose of Zepbound to 10 mg SC weekly and follow-up in 4-6 weeks. 06/27/2024: Weight: 293, BMI: 39.7. Patient down 5 pounds.SECA reviewed, reveals loss of muscle mass only. Discussed importance of prioritizing protein intake, goal 100 g/day. The patient is also encouraged to incorporate strength training goal of preservation of adequate muscle mass. Plan to continue Zepbound 7.5 mg SC weekly and follow-up in 1 month. 05/24/2024: Weight: 298, BMI: 40. Patient up 1 pound. Seca reviewed, reveals 2 pounds of fat loss and maintenance of muscle mass. Patient is encouraged to continue making health-conscious diet choices. Discussed the importance of eating regularly with prioritization of protein intake-goal of 90 g/day. Patient is encouraged to continue exercising regularly and hydrating adequately. Plan increase dose of Zepbound to 7.5 mg SC weekly and follow-up in 1 month. 04/19/2024: Weight: 297, BMI: 40.3. Weight up 2 pounds.SECA reviewed, reveals 1 pound of fat gain and 1 pound of muscle mass gain. Patient is encouraged to continue exercising regularly. Discussed the importance of added strength training for maintenance of muscle mass. He is additionally encouraged to continue making health-conscious diet choices/practicin g portion control. Plan to reinitiate treatment with Zepbound 5 mg SC weekly and follow-up in 1 month. 02/16/2024: Weight: 295, BMI: 40. SECA reviewed, Unchanged, down a pound of muscle mass. The patient continues to have above average muscle mass. He is encouraged to continue practicing portion control and prioritizing intake of protein, fruits, vegetables, whole grains, water, etc. Patient is encouraged to continue walking regularly, discussed the importance of adding strength training for continued maintenance of muscle mass. Discussed the importance of prioritizing mental health and limiting stress when possible. Patient still has 1 dose of 2.5 mg left to take, will send for increased dose of Zepbound at 5 mg SC weekly with plan to follow-up in 5 weeks. 01/17/2024: Weight: 297, BMI: 40.3. SECA reviewed, relatively unchanged. The patient is encouraged to continue exercising regularly with added strength training for maintenance of muscle mass/bone health. Reviewed the importance of limiting carbs, sugars, etc. and considering healthier alternatives. The patient establish care with us 07/2022 at which time he weighed 346 pounds. The patient has successfully been able to lose nearly 50 pounds with a combination of lifestyle changes and use of weight loss medications. As the patient has been on the maximum dose of Wegovy for 7 months with minimal weight loss patient would like to pursue an alternative medication, Zepbound. The patient is a great candidate for this medication, Rx for Zepbound 2.5 mg SC weekly sent to pharmacy. Reviewed proper use/administratio n and side effects. Reviewed expectations for PA process/insurance coverage. After consultation and careful review of medical history, this patient would benefit from Zepbound based off of the following criteria met: Patient is over the age of 18 with a BMI of 40. Additional comorbidities include HTN, prediabetes, EVER on CPAP. Patient has trialed other methods of weight loss including improving diet and exercise without success over at least three months. This medication is prescribed by or in consultation with a board-certified obesity and weight management physician (Dr. Marlin Vega or Dr. Lucian Vega). 12/06/2023:Weight: 296, BMI: 40.14. Reviewed SECA/goals for implementing sustainable lifestyle changes. Patient is encouraged to increase physical activity, goal 8-10k steps/day. Also discussed the importance of strength training with proper safety/body mechanics for maintenance of muscle mass/bone health. Discussed supplements to aid with sleep including cortisol administrative office manager, melatonin, magnesium glycinate. Patient encouraged to drink 60-80oz water/day. Reviewed the importance of adequate caloric/protein intake in the setting of medication-induce d appetite suppression. Goal of 100g protein/day. Plan to continue Wegovy 2.4 mg SC weekly. 10/06/2023: Weight: 295, BMI: 40.13. All questions answered to the patient's satisfaction. Patient demonstrates understanding of diagnosis and treatments discussed. Follow-up in 4 weeks, sooner should any questions/concern s arise. Case discussed with collaborating physician Marcos Vega who has reviewed the assessment/plan. Chart, medications, labs, and vital signs reviewed. Dictation completed with the use of [employer] voice recognition software, prone to medical misidentification s and grammatical errors. All errors are unintentional. Although the practitioner does try to identify and correct errors, some may be present. Please do not hesitate to contact the practitioner for clarification. Total time spent was 30 minutes with >50% on coordination of care and patient education. 07/26/2024 EVER on CPAP (ICD-10 - G47.33) Eliezer is a 59-year-old male with a PMH of HTN, gout, prediabetes, EVER on CPAP that presents for weight management follow-up. Reviewed [facility] holistic and medical approach to weight loss with emphasis on lifestyle modification. 07/26/2024: Weight: 291.2, BMI: 39.5. Patient down 2 pounds. SECA reviewed, relatively unchanged. Patient encouraged to continue making health-conscious diet choices, recommending increasing protein intake and limiting carbs/starches. He is encouraged to continue walking regularly with added strength training 2-3 times weekly. Will increase dose of Zepbound to 10 mg SC weekly and follow-up in 4-6 weeks. 06/27/2024: Weight: 293, BMI: 39.7. Patient down 5 pounds.SECA reviewed, reveals loss of muscle mass only. Discussed importance of prioritizing protein intake, goal 100 g/day. The patient is also encouraged to incorporate strength training goal of preservation of adequate muscle mass. Plan to continue Zepbound 7.5 mg SC weekly and follow-up in 1 month. 05/24/2024: Weight: 298, BMI: 40. Patient up 1 pound. Seca reviewed, reveals 2 pounds of fat loss and maintenance of muscle mass. Patient is encouraged to continue making health-conscious diet choices. Discussed the importance of eating regularly with prioritization of protein intake-goal of 90 g/day. Patient is encouraged to continue exercising regularly and hydrating adequately. Plan increase dose of Zepbound to 7.5 mg SC weekly and follow-up in 1 month. 04/19/2024: Weight: 297, BMI: 40.3. Weight up 2 pounds.SECA reviewed, reveals 1 pound of fat gain and 1 pound of muscle mass gain. Patient is encouraged to continue exercising regularly. Discussed the importance of added strength training for maintenance of muscle mass. He is additionally encouraged to continue making health-conscious diet choices/practicin g portion control. Plan to reinitiate treatment with Zepbound 5 mg SC weekly and follow-up in 1 month. 02/16/2024: Weight: 295, BMI: 40. SECA reviewed, Unchanged, down a pound of muscle mass. The patient continues to have above average muscle mass. He is encouraged to continue practicing portion control and prioritizing intake of protein, fruits, vegetables, whole grains, water, etc. Patient is encouraged to continue walking regularly, discussed the importance of adding strength training for continued maintenance of muscle mass. Discussed the importance of prioritizing mental health and limiting stress when possible. Patient still has 1 dose of 2.5 mg left to take, will send for increased dose of Zepbound at 5 mg SC weekly with plan to follow-up in 5 weeks. 01/17/2024: Weight: 297, BMI: 40.3. SECA reviewed, relatively unchanged. The patient is encouraged to continue exercising regularly with added strength training for maintenance of muscle mass/bone health. Reviewed the importance of limiting carbs, sugars, etc. and considering healthier alternatives. The patient establish care with us 07/2022 at which time he weighed 346 pounds. The patient has successfully been able to lose nearly 50 pounds with a combination of lifestyle changes and use of weight loss medications. As the patient has been on the maximum dose of Wegovy for 7 months with minimal weight loss patient would like to pursue an alternative medication, Zepbound. The patient is a great candidate for this medication, Rx for Zepbound 2.5 mg SC weekly sent to pharmacy. Reviewed proper use/administratio n and side effects. Reviewed expectations for PA process/insurance coverage. After consultation and careful review of medical history, this patient would benefit from Zepbound based off of the following criteria met: Patient is over the age of 16 with a BMI of 40. Additional comorbidities include HTN, prediabetes, EVER on CPAP. Patient has trialed other methods of weight loss including improving diet and exercise without success over at least three months. This medication is prescribed by or in consultation with a board-certified obesity and weight management physician (Dr. Marlin Vega or Dr. Lucian Vega). 12/06/2023:Weight: 296, BMI: 40.14. Reviewed SECA/goals for implementing sustainable lifestyle changes. Patient is encouraged to increase physical activity, goal 8-10k steps/day. Also discussed the importance of strength training with proper safety/body mechanics for maintenance of muscle mass/bone health. Discussed supplements to aid with sleep including cortisol administrative office manager, melatonin, magnesium glycinate. Patient encouraged to drink 60-80oz water/day. Reviewed the importance of adequate caloric/protein intake in the setting of medication-induce d appetite suppression. Goal of 100g protein/day. Plan to continue Wegovy 2.4 mg SC weekly. 10/06/2023: Weight: 295, BMI: 40.13. All questions answered to the patient's satisfaction. Patient demonstrates understanding of diagnosis and treatments discussed. Follow-up in 4 weeks, sooner should any questions/concern s arise. Case discussed with collaborating physician Marcos Vega who has reviewed the assessment/plan. Chart, medications, labs, and vital signs reviewed. Dictation completed with the use of [employer] voice recognition software, prone to medical misidentification s and grammatical errors. All errors are unintentional. Although the practitioner does try to identify and correct errors, some may be present. Please do not hesitate to contact the practitioner for clarification. Total time spent was 30 minutes with >50% on coordination of care and patient education. 06/27/2024 EVER on CPAP (ICD-10 - G47.33) Eliezer is a 59-year-old male with a PMH of HTN, gout, prediabetes, EVER on CPAP that presents for weight management follow-up. Reviewed [facility] holistic and medical approach to weight loss with emphasis on lifestyle modification. 06/27/2024: Weight: 293, BMI: 39.7. Patient down 5 pounds.SECA reviewed, reveals loss of muscle mass only. Discussed importance of prioritizing protein intake, goal 100 g/day. The patient is also encouraged to incorporate strength training goal of preservation of adequate muscle mass. Plan to continue Zepbound 7.5 mg SC weekly and follow-up in 1 month. #Mass: On exam there is a 10 cm circular mass protruding from the right shoulder. It is nontender to palpation without overlying erythema/edema. ? Lipoma/soft tissue mass. Patient encouraged to contact his primary care provider for continued evaluation. 05/24/2024: Weight: 298, BMI: 40. Patient up 1 pound. Seca reviewed, reveals 2 pounds of fat loss and maintenance of muscle mass. Patient is encouraged to continue making health-conscious diet choices. Discussed the importance of eating regularly with prioritization of protein intake-goal of 90 g/day. Patient is encouraged to continue exercising regularly and hydrating adequately. Plan increase dose of Zepbound to 7.5 mg SC weekly and follow-up in 1 month. 04/19/2024: Weight: 297, BMI: 40.3. Weight up 2 pounds.SECA reviewed, reveals 1 pound of fat gain and 1 pound of muscle mass gain. Patient is encouraged to continue exercising regularly. Discussed the importance of added strength training for maintenance of muscle mass. He is additionally encouraged to continue making health-conscious diet choices/practicin g portion control. Plan to reinitiate treatment with Zepbound 5 mg SC weekly and follow-up in 1 month. 02/16/2024: Weight: 295, BMI: 40. SECA reviewed, Unchanged, down a pound of muscle mass. The patient continues to have above average muscle mass. He is encouraged to continue practicing portion control and prioritizing intake of protein, fruits, vegetables, whole grains, water, etc. Patient is encouraged to continue walking regularly, discussed the importance of adding strength training for continued maintenance of muscle mass. Discussed the importance of prioritizing mental health and limiting stress when possible. Patient still has 1 dose of 2.5 mg left to take, will send for increased dose of Zepbound at 5 mg SC weekly with plan to follow-up in 5 weeks. 01/17/2024: Weight: 297, BMI: 40.3. SECA reviewed, relatively unchanged. The patient is encouraged to continue exercising regularly with added strength training for maintenance of muscle mass/bone health. Reviewed the importance of limiting carbs, sugars, etc. and considering healthier alternatives. The patient establish care with 07/2022 at which time he weighed 346 pounds. The patient has successfully been able to lose nearly 50 pounds with a combination of lifestyle changes and use of weight loss medications. As the patient has been on the maximum dose of Wegovy for 7 months with minimal weight loss patient would like to pursue an alternative medication, Zepbound. The patient is a great candidate for this medication, Rx for Zepbound 2.5 mg SC weekly sent to pharmacy. Reviewed proper use/administratio n and side effects. Reviewed expectations for PA process/insurance coverage. After consultation and careful review of medical history, this patient would benefit from Zepbound based off of the following criteria met: Patient is over the age of 16 with a BMI of 40. Additional comorbidities include HTN, prediabetes, EVER on CPAP. Patient has trialed other methods of weight loss including improving diet and exercise without success over at least three months. This medication is prescribed by or in consultation with a board-certified obesity and weight management physician (Dr. Marlin Vega or Dr. Lucian Vega). 12/06/2023:Weight: 296, BMI: 40.14. Reviewed SECA/goals for implementing sustainable lifestyle changes. Patient is encouraged to increase physical activity, goal 8-10k steps/day. Also discussed the importance of strength training with proper safety/body mechanics for maintenance of muscle mass/bone health. Discussed supplements to aid with sleep including cortisol administrative office manager, melatonin, magnesium glycinate. Patient encouraged to drink 60-80oz water/day. Reviewed the importance of adequate caloric/protein intake in the setting of medication-induce d appetite suppression. Goal of 100g protein/day. Plan to continue Wegovy 2.4 mg SC weekly. 10/06/2023: Weight: 295, BMI: 40.13. All questions answered to the patient's satisfaction. Patient demonstrates understanding of diagnosis and treatments discussed. Follow-up in 4 weeks, sooner should any questions/concern s arise. Case discussed with collaborating physician Marcos Vega who has reviewed the assessment/plan. Chart, medications, labs, and vital signs reviewed. Dictation completed with the use of [employer] voice recognition software, prone to medical misidentification s and grammatical errors. All errors are unintentional. Although the practitioner does try to identify and correct errors, some may be present. Please do not hesitate to contact the practitioner for clarification. Total time spent was 30 minutes with >50% on coordination of care and patient education. 05/24/2024 BMI 40.0-44.9, adult (ICD-10 - Z68.41) Eliezer is a 59-year-old male with a PMH of HTN, gout, prediabetes, EVER on CPAP that presents for weight management follow-up. Reviewed [facility] holistic and medical approach to weight loss with emphasis on lifestyle modification. 05/24/2024: Weight: 298, BMI: 40. Patient up 1 pound. Seca reviewed, reveals 2 pounds of fat loss and maintenance of muscle mass. Patient is encouraged to continue making health-conscious diet choices. Discussed the importance of eating regularly with prioritization of protein intake-goal of 90 g/day. Patient is encouraged to continue exercising regularly and hydrating adequately. Plan increase dose of Zepbound to 7.5 mg SC weekly and follow-up in 1 month. 04/19/2024: Weight: 297, BMI: 40.3. Weight up 2 pounds.SECA reviewed, reveals 1 pound of fat gain and 1 pound of muscle mass gain. Patient is encouraged to continue exercising regularly. Discussed the importance of added strength training for maintenance of muscle mass. He is additionally encouraged to continue making health-conscious diet choices/practicin g portion control. Plan to reinitiate treatment with Zepbound 5 mg SC weekly and follow-up in 1 month. 02/16/2024: Weight: 295, BMI: 40. SECA reviewed, Unchanged, down a pound of muscle mass. The patient continues to have above average muscle mass. He is encouraged to continue practicing portion control and prioritizing intake of protein, fruits, vegetables, whole grains, water, etc. Patient is encouraged to continue walking regularly, discussed the importance of adding strength training for continued maintenance of muscle mass. Discussed the importance of prioritizing mental health and limiting stress when possible. Patient still has 1 dose of 2.5 mg left to take, will send for increased dose of Zepbound at 5 mg SC weekly with plan to follow-up in 5 weeks. 01/17/2024: Weight: 297, BMI: 40.3. SECA reviewed, relatively unchanged. The patient is encouraged to continue exercising regularly with added strength training for maintenance of muscle mass/bone health. Reviewed the importance of limiting carbs, sugars, etc. and considering healthier alternatives. The patient establish care with us 07/2022 at which time he weighed 346 pounds. The patient has successfully been able to lose nearly 50 pounds with a combination of lifestyle changes and use of weight loss medications. As the patient has been on the maximum dose of Wegovy for 7 months with minimal weight loss patient would like to pursue an alternative medication, Zepbound. The patient is a great candidate for this medication, Rx for Zepbound 2.5 mg SC weekly sent to pharmacy. Reviewed proper use/administratio n and side effects. Reviewed expectations for PA process/insurance coverage. After consultation and careful review of medical history, this patient would benefit from Zepbound based off of the following criteria met: Patient is over the age of 16 with a BMI of 40. Additional comorbidities include HTN, prediabetes, EVER on CPAP. Patient has trialed other methods of weight loss including improving diet and exercise without success over at least three months. This medication is prescribed by or in consultation with a board-certified obesity and weight management physician (Dr. Marlin Vega or Dr. Lucian Vega). 12/06/2023:Weight: 296, BMI: 40.14. Reviewed SECA/goals for implementing sustainable lifestyle changes. Patient is encouraged to increase physical activity, goal 8-10k steps/day. Also discussed the importance of strength training with proper safety/body mechanics for maintenance of muscle mass/bone health. Discussed supplements to aid with sleep including cortisol administrative office manager, melatonin, magnesium glycinate. Patient encouraged to drink 60-80oz water/day. Reviewed the importance of adequate caloric/protein intake in the setting of medication-induce d appetite suppression. Goal of 100g protein/day. Plan to continue Wegovy 2.4 mg SC weekly. 10/06/2023: Weight: 295, BMI: 40.13. All questions answered to the patient's satisfaction. Patient demonstrates understanding of diagnosis and treatments discussed. Follow-up in 4 weeks, sooner should any questions/concern s arise. Case discussed with collaborating physician Marcos Vega who has reviewed the assessment/plan. Chart, medications, labs, and vital signs reviewed. Dictation completed with the use of [employer] voice recognition software, prone to medical misidentification s and grammatical errors. All errors are unintentional. Although the practitioner does try to identify and correct errors, some may be present. Please do not hesitate to contact the practitioner for clarification. Total time spent was 30 minutes with >50% on coordination of care and patient education. 04/19/2024 EVER on CPAP (ICD-10 - G47.33) Eliezer is a 59-year-old male with a PMH of HTN, gout, prediabetes, EVER on CPAP that presents for weight management follow-up. Reviewed [facility] holistic and medical approach to weight loss with emphasis on lifestyle modification. 04/19/2024: Weight: 297, BMI: 40.3. Weight up 2 pounds.SECA reviewed, reveals 1 pound of fat gain and 1 pound of muscle mass gain. Patient is encouraged to continue exercising regularly. Discussed the importance of added strength training for maintenance of muscle mass. He is additionally encouraged to continue making health-conscious diet choices/practicin g portion control. Plan to reinitiate treatment with Zepbound 5 mg SC weekly and follow-up in 1 month. 02/16/2024: Weight: 295, BMI: 40. SECA reviewed, Unchanged, down a pound of muscle mass. The patient continues to have above average muscle mass. He is encouraged to continue practicing portion control and prioritizing intake of protein, fruits, vegetables, whole grains, water, etc. Patient is encouraged to continue walking regularly, discussed the importance of adding strength training for continued maintenance of muscle mass. Discussed the importance of prioritizing mental health and limiting stress when possible. Patient still has 1 dose of 2.5 mg left to take, will send for increased dose of Zepbound at 5 mg SC weekly with plan to follow-up in 5 weeks. 01/17/2024: Weight: 297, BMI: 40.3. SECA reviewed, relatively unchanged. The patient is encouraged to continue exercising regularly with added strength training for maintenance of muscle mass/bone health. Reviewed the importance of limiting carbs, sugars, etc. and considering healthier alternatives. The patient establish care with 07/2022 at which time he weighed 346 pounds. The patient has successfully been able to lose nearly 50 pounds with a combination of lifestyle changes and use of weight loss medications. As the patient has been on the maximum dose of Wegovy for 7 months with minimal weight loss patient would like to pursue an alternative medication, Zepbound. The patient is a great candidate for this medication, Rx for Zepbound 2.5 mg SC weekly sent to pharmacy. Reviewed proper use/administratio n and side effects. Reviewed expectations for PA process/insurance coverage. After consultation and careful review of medical history, this patient would benefit from Zepbound based off of the following criteria met: Patient is over the age of 16 with a BMI of 40. Additional comorbidities include HTN, prediabetes, EVER on CPAP. Patient has trialed other methods of weight loss including improving diet and exercise without success over at least three months. This medication is prescribed by or in consultation with a board-certified obesity and weight management physician (Dr. Marlin Vega or Dr. Lucian Vega). 12/06/2023:Weight: 296, BMI: 40.14. Reviewed SECA/goals for implementing sustainable lifestyle changes. Patient is encouraged to increase physical activity, goal 8-10k steps/day. Also discussed the importance of strength training with proper safety/body mechanics for maintenance of muscle mass/bone health. Discussed supplements to aid with sleep including cortisol administrative office manager, melatonin, magnesium glycinate. Patient encouraged to drink 60-80oz water/day. Reviewed the importance of adequate caloric/protein intake in the setting of medication-induce d appetite suppression. Goal of 100g protein/day. Plan to continue Wegovy 2.4 mg SC weekly. 10/06/2023: Weight: 295, BMI: 40.13. All questions answered to the patient's satisfaction. Patient demonstrates understanding of diagnosis and treatments discussed. Follow-up in 4 weeks, sooner should any questions/concern s arise. Case discussed with collaborating physician Marcos Vega who has reviewed the assessment/plan. Chart, medications, labs, and vital signs reviewed. Dictation completed with the use of [employer] voice recognition software, prone to medical misidentification s and grammatical errors. All errors are unintentional. Although the practitioner does try to identify and correct errors, some may be present. Please do not hesitate to contact the practitioner for clarification. Total time spent was 30 minutes with >50% on coordination of care and patient education. 02/16/2024 BMI 40.0-44.9, adult (ICD-10 - Z68.41) Eliezer is a 58-year-old male with a PMH of HTN, gout, prediabetes, EVER on CPAP that presents for weight management follow-up. Reviewed [facility] holistic and medical approach to weight loss with emphasis on lifestyle modification. 02/16/2024: Weight: 295, BMI: 40. SECA reviewed, Unchanged, down a pound of muscle mass. The patient continues to have above average muscle mass. He is encouraged to continue practicing portion control and prioritizing intake of protein, fruits, vegetables, whole grains, water, etc. Patient is encouraged to continue walking regularly, discussed the importance of adding strength training for continued maintenance of muscle mass. Discussed the importance of prioritizing mental health and limiting stress when possible. Patient still has 1 dose of 2.5 mg left to take, will send for increased dose of Zepbound at 5 mg SC weekly with plan to follow-up in 5 weeks. 01/17/2024: Weight: 297, BMI: 40.3. SECA reviewed, relatively unchanged. The patient is encouraged to continue exercising regularly with added strength training for maintenance of muscle mass/bone health. Reviewed the importance of limiting carbs, sugars, etc. and considering healthier alternatives. The patient establish care with 07/2022 at which time he weighed 346 pounds. The patient has successfully been able to lose nearly 50 pounds with a combination of lifestyle changes and use of weight loss medications. As the patient has been on the maximum dose of Wegovy for 7 months with minimal weight loss patient would like to pursue an alternative medication, Zepbound. The patient is a great candidate for this medication, Rx for Zepbound 2.5 mg SC weekly sent to pharmacy. Reviewed proper use/administratio n and side effects. Reviewed expectations for PA process/insurance coverage. After consultation and careful review of medical history, this patient would benefit from Zepbound based off of the following criteria met: Patient is over the age of 16 with a BMI of 40. Additional comorbidities include HTN, prediabetes, EVER on CPAP. Patient has trialed other methods of weight loss including improving diet and exercise without success over at least three months. This medication is prescribed by or in consultation with a board-certified obesity and weight management physician (Dr. Marlin Vega or Dr. Lucian Vega). 12/06/2023:Weight: 296, BMI: 40.14. Reviewed SECA/goals for implementing sustainable lifestyle changes. Patient is encouraged to increase physical activity, goal 8-10k steps/day. Also discussed the importance of strength training with proper safety/body mechanics for maintenance of muscle mass/bone health. Discussed supplements to aid with sleep including cortisol administrative office manager, melatonin, magnesium glycinate. Patient encouraged to drink 60-80oz water/day. Reviewed the importance of adequate caloric/protein intake in the setting of medication-induce d appetite suppression. Goal of 100g protein/day. Plan to continue Wegovy 2.4 mg SC weekly. 10/06/2023: Weight: 295, BMI: 40.13. All questions answered to the patient's satisfaction. Patient demonstrates understanding of diagnosis and treatments discussed. Follow-up in 4 weeks, sooner should any questions/concern s arise. Case discussed with collaborating physician Marcos Vega who has reviewed the assessment/plan. Chart, medications, labs, and vital signs reviewed. Dictation completed with the use of [employer] voice recognition software, prone to medical misidentification s and grammatical errors. All errors are unintentional. Although the practitioner does try to identify and correct errors, some may be present. Please do not hesitate to contact the practitioner for clarification. Total time spent was 30 minutes with >50% on coordination of care and patient education. 01/17/2024 BMI 40.0-44.9, adult (ICD-10 - Z68.41) Eliezer is a 58-year-old male with a PMH of HTN, gout, prediabetes, EVER on CPAP that presents for weight management follow-up. Reviewed [facility] holistic and medical approach to weight loss with emphasis on lifestyle modification. 01/17/2024: Weight: 297, BMI: 40.3. SECA reviewed, relatively unchanged. The patient is encouraged to continue exercising regularly with added strength training for maintenance of muscle mass/bone health. Reviewed the importance of limiting carbs, sugars, etc. and considering healthier alternatives. The patient establish care with us 07/2022 at which time he weighed 346 pounds. The patient has successfully been able to lose nearly 50 pounds with a combination of lifestyle changes and use of weight loss medications. As the patient has been on the maximum dose of Wegovy for 7 months with minimal weight loss patient would like to pursue an alternative medication, Zepbound. The patient is a great candidate for this medication, Rx for Zepbound 2.5 mg SC weekly sent to pharmacy. Reviewed proper use/administratio n and side effects. Reviewed expectations for PA process/insurance coverage. After consultation and careful review of medical history, this patient would benefit from Zepbound based off of the following criteria met: Patient is over the age of 16 with a BMI of 40. Additional comorbidities include HTN, prediabetes, EVER on CPAP. Patient has trialed other methods of weight loss including improving diet and exercise without success over at least three months. This medication is prescribed by or in consultation with a board-certified obesity and weight management physician (Dr. Marlin Vega or Dr. Lucian Vega). 12/06/2023:Weight: 296, BMI: 40.14. Reviewed SECA/goals for implementing sustainable lifestyle changes. Patient is encouraged to increase physical activity, goal 8-10k steps/day. Also discussed the importance of strength training with proper safety/body mechanics for maintenance of muscle mass/bone health. Discussed supplements to aid with sleep including cortisol administrative office manager, melatonin, magnesium glycinate. Patient encouraged to drink 60-80oz water/day. Reviewed the importance of adequate caloric/protein intake in the setting of medication-induce d appetite suppression. Goal of 100g protein/day. Plan to continue Wegovy 2.4 mg SC weekly. 10/06/2023: Weight: 295, BMI: 40.13. All questions answered to the patient's satisfaction. Patient demonstrates understanding of diagnosis and treatments discussed. Follow-up in 4 weeks, sooner should any questions/concern s arise. Case discussed with collaborating physician Markell Vega who has reviewed the assessment/plan. Chart, medications, labs, and vital signs reviewed. Dictation completed with the use of [employer] voice recognition software, prone to medical misidentification s and grammatical errors. All errors are unintentional. Although the practitioner does try to identify and correct errors, some may be present. Please do not hesitate to contact the practitioner for clarification. Total time spent was 25 minutes with >50% on coordination of care and patient education. 12/06/2023 EVER on CPAP (ICD-10 - G47.33) Eliezer is a 58-year-old male with a PMH of HTN, gout, prediabetes, EVER on CPAP that presents for weight management follow-up. Reviewed [facility] holistic and medical approach to weight loss with emphasis on lifestyle modification. Patient is educated that a healthy lifestyle aids in combating obesity as well as reducing the risk of developing obesity-related medical complications including but not limited to diabetes and cardiovascular disease. Detailed education provided about taking steps to initiate sustainable lifestyle changes including incorporating regular physical activity, making healthy diet choices, and prioritizing mental health. Information provided about literature including The Food Rules by Zack Veloz and Eat Fat Get Lean by Dr Gray Alvarenga. Handouts including lifestyle checklist, protein content of food, low calorie snacks, and cholesterol information sheet provided. Diagnostic testing/ SECA scale offered. Discussed the importance of regular SECA scale measurements to ensure healthy weight loss. Patient established care as weight management patient 08/03/2022 his weight was 346. 12/06/2023:Weight: 296, BMI: 40.14. Reviewed SECA/goals for implementing sustainable lifestyle changes. Patient is encouraged to increase physical activity, goal 8-10k steps/day. Also discussed the importance of strength training with proper safety/body mechanics for maintenance of muscle mass/bone health. Discussed supplements to aid with sleep including cortisol administrative office manager, melatonin, magnesium glycinate. Patient encouraged to drink 60-80oz water/day. Reviewed the importance of adequate caloric/protein intake in the setting of medication-induce d appetite suppression. Goal of 100g protien/day. Plan to continue Wegovy 2.4 mg SC weekly. 10/06/2023: Weight: 295, BMI: 40.13. All questions answered to the patients satisfaction. Patient demonstrates understanding of diagnosis and treatments discussed. Follow-up in 4 weeks, sooner should any questions/concern s arise. Case discussed with collaborating physician Marcos Vega who has reviewed the assessment/plan. Chart, medications, labs, and vital signs reviewed. Dictation completed with the use of [employer] voice recognition software, prone to medical misidentification s and grammatical errors. All errors are unintentional. Although the practitioner does try to identify and correct errors, some may be present. Please do not hesitate to contact the practitioner for clarification. 10/06/2023 Back pain due to inflammatory process (ICD-10 - M54.89) States he saw his primary care provider recently, had lab work done. States he was able to be taken off his [place] for high blood pressure. which he had been taking for 20 years. Patient is here for weight management followup. We focused on significance of healthy lifestyle changes. We talked about need to track steps, work on portion control, read food labels, get adequate sleep, give adequate rest of the body, meditate, frequent nutritious meals including vegetables and healthy choices of meat and elimination of refined carbohydrates. We also talked about mindfulness and mindful eating. Particular focus was on portion control continue current status weight training to prevent muscle mass loss Total time spent was 30 minutes with greater than 50% spent on counseling and coordinating care Plan. 01/17/2024 EVRE on CPAP (ICD-10 - G47.33) Eliezer is a 58-year-old male with a PMH of HTN, gout, prediabetes, EVER on CPAP that presents for weight management follow-up. Reviewed [facility] holistic and medical approach to weight loss with emphasis on lifestyle modification. 01/17/2024: Weight: 297, BMI: 40.3. SECA reviewed, relatively unchanged. The patient is encouraged to continue exercising regularly with added strength training for maintenance of muscle mass/bone health. Reviewed the importance of limiting carbs, sugars, etc. and considering healthier alternatives. The patient establish care with 07/2022 at which time he weighed 346 pounds. The patient has successfully been able to lose nearly 50 pounds with a combination of lifestyle changes and use of weight loss medications. As the patient has been on the maximum dose of Wegovy for 7 months with minimal weight loss patient would like to pursue an alternative medication, Zepbound. The patient is a great candidate for this medication, Rx for Zepbound 2.5 mg SC weekly sent to pharmacy. Reviewed proper use/administratio n and side effects. Reviewed expectations for PA process/insurance coverage. After consultation and careful review of medical history, this patient would benefit from Zepbound based off of the following criteria met: Patient is over the age of 16 with a BMI of 40. Additional comorbidities include HTN, prediabetes, EVER on CPAP. Patient has trialed other methods of weight loss including improving diet and exercise without success over at least three months. This medication is prescribed by or in consultation with a board-certified obesity and weight management physician (Dr. Marlin Vega or Dr. Lucian Vega). 12/06/2023:Weight: 296, BMI: 40.14. Reviewed SECA/goals for implementing sustainable lifestyle changes. Patient is encouraged to increase physical activity, goal 8-10k steps/day. Also discussed the importance of strength training with proper safety/body mechanics for maintenance of muscle mass/bone health. Discussed supplements to aid with sleep including cortisol administrative office manager, melatonin, magnesium glycinate. Patient encouraged to drink 60-80oz water/day. Reviewed the importance of adequate caloric/protein intake in the setting of medication-induce d appetite suppression. Goal of 100g protein/day. Plan to continue Wegovy 2.4 mg SC weekly. 10/06/2023: Weight: 295, BMI: 40.13. All questions answered to the patient's satisfaction. Patient demonstrates understanding of diagnosis and treatments discussed. Follow-up in 4 weeks, sooner should any questions/concern s arise. Case discussed with collaborating physician Markell Vega who has reviewed the assessment/plan. Chart, medications, labs, and vital signs reviewed. Dictation completed with the use of [employer] voice recognition software, prone to medical misidentification s and grammatical errors. All errors are unintentional. Although the practitioner does try to identify and correct errors, some may be present. Please do not hesitate to contact the practitioner for clarification. Total time spent was 25 minutes with >50% on coordination of care and patient education. 02/16/2024 EVER on CPAP (ICD-10 - G47.33) Eliezer is a 58-year-old male with a PMH of HTN, gout, prediabetes, EVER on CPAP that presents for weight management follow-up. Reviewed [facility] holistic and medical approach to weight loss with emphasis on lifestyle modification. 02/16/2024: Weight: 295, BMI: 40. SECA reviewed, Unchanged, down a pound of muscle mass. The patient continues to have above average muscle mass. He is encouraged to continue practicing portion control and prioritizing intake of protein, fruits, vegetables, whole grains, water, etc. Patient is encouraged to continue walking regularly, discussed the importance of adding strength training for continued maintenance of muscle mass. Discussed the importance of prioritizing mental health and limiting stress when possible. Patient still has 1 dose of 2.5 mg left to take, will send for increased dose of Zepbound at 5 mg SC weekly with plan to follow-up in 5 weeks. 01/17/2024: Weight: 297, BMI: 40.3. SECA reviewed, relatively unchanged. The patient is encouraged to continue exercising regularly with added strength training for maintenance of muscle mass/bone health. Reviewed the importance of limiting carbs, sugars, etc. and considering healthier alternatives. The patient establish care with us 07/2022 at which time he weighed 346 pounds. The patient has successfully been able to lose nearly 50 pounds with a combination of lifestyle changes and use of weight loss medications. As the patient has been on the maximum dose of Wegovy for 7 months with minimal weight loss patient would like to pursue an alternative medication, Zepbound. The patient is a great candidate for this medication, Rx for Zepbound 2.5 mg SC weekly sent to pharmacy. Reviewed proper use/administratio n and side effects. Reviewed expectations for PA process/insurance coverage. After consultation and careful review of medical history, this patient would benefit from Zepbound based off of the following criteria met: Patient is over the age of 16 with a BMI of 40. Additional comorbidities include HTN, prediabetes, EVER on CPAP. Patient has trialed other methods of weight loss including improving diet and exercise without success over at least three months. This medication is prescribed by or in consultation with a board-certified obesity and weight management physician (Dr. Marlin Vega or Dr. Lucian Vega). 12/06/2023:Weight: 296, BMI: 40.14. Reviewed SECA/goals for implementing sustainable lifestyle changes. Patient is encouraged to increase physical activity, goal 8-10k steps/day. Also discussed the importance of strength training with proper safety/body mechanics for maintenance of muscle mass/bone health. Discussed supplements to aid with sleep including cortisol administrative office manager, melatonin, magnesium glycinate. Patient encouraged to drink 60-80oz water/day. Reviewed the importance of adequate caloric/protein intake in the setting of medication-induce d appetite suppression. Goal of 100g protein/day. Plan to continue Wegovy 2.4 mg SC weekly. 10/06/2023: Weight: 295, BMI: 40.13. All questions answered to the patient's satisfaction. Patient demonstrates understanding of diagnosis and treatments discussed. Follow-up in 4 weeks, sooner should any questions/concern s arise. Case discussed with collaborating physician Marcos Vega who has reviewed the assessment/plan. Chart, medications, labs, and vital signs reviewed. Dictation completed with the use of [employer] voice recognition software, prone to medical misidentification s and grammatical errors. All errors are unintentional. Although the practitioner does try to identify and correct errors, some may be present. Please do not hesitate to contact the practitioner for clarification. Total time spent was 30 minutes with >50% on coordination of care and patient education. 12/06/2023 Essential hypertension (ICD-10 - I10) Eliezer is a 58-year-old male with a PMH of HTN, gout, prediabetes, EVER on CPAP that presents for weight management follow-up. Reviewed [facility] holistic and medical approach to weight loss with emphasis on lifestyle modification. Patient is educated that a healthy lifestyle aids in combating obesity as well as reducing the risk of developing obesity-related medical complications including but not limited to diabetes and cardiovascular disease. Detailed education provided about taking steps to initiate sustainable lifestyle changes including incorporating regular physical activity, making healthy diet choices, and prioritizing mental health. Information provided about literature including The Food Rules by Zack Veloz and Eat Fat Get Lean by Dr Gray Alvarenga. Handouts including lifestyle checklist, protein content of food, low calorie snacks, and cholesterol information sheet provided. Diagnostic testing/ SECA scale offered. Discussed the importance of regular SECA scale measurements to ensure healthy weight loss. Patient established care as weight management patient 08/03/2022 his weight was 346. 12/06/2023:Weight: 296, BMI: 40.14. Reviewed SECA/goals for implementing sustainable lifestyle changes. Patient is encouraged to increase physical activity, goal 8-10k steps/day. Also discussed the importance of strength training with proper safety/body mechanics for maintenance of muscle mass/bone health. Discussed supplements to aid with sleep including cortisol administrative office manager, melatonin, magnesium glycinate. Patient encouraged to drink 60-80oz water/day. Reviewed the importance of adequate caloric/protein intake in the setting of medication-induce d appetite suppression. Goal of 100g protien/day. Plan to continue Wegovy 2.4 mg SC weekly. 10/06/2023: Weight: 295, BMI: 40.13. All questions answered to the patients satisfaction. Patient demonstrates understanding of diagnosis and treatments discussed. Follow-up in 4 weeks, sooner should any questions/concern s arise. Case discussed with collaborating physician Marcos Vega who has reviewed the assessment/plan. Chart, medications, labs, and vital signs reviewed. Dictation completed with the use of [employer] voice recognition software, prone to medical misidentification s and grammatical errors. All errors are unintentional. Although the practitioner does try to identify and correct errors, some may be present. Please do not hesitate to contact the practitioner for clarification. 04/19/2024 Essential hypertension (ICD-10 - I10) Eliezer is a 59-year-old male with a PMH of HTN, gout, prediabetes, EVER on CPAP that presents for weight management follow-up. Reviewed [facility] holistic and medical approach to weight loss with emphasis on lifestyle modification. 04/19/2024: Weight: 297, BMI: 40.3. Weight up 2 pounds.SECA reviewed, reveals 1 pound of fat gain and 1 pound of muscle mass gain. Patient is encouraged to continue exercising regularly. Discussed the importance of added strength training for maintenance of muscle mass. He is additionally encouraged to continue making health-conscious diet choices/practicin g portion control. Plan to reinitiate treatment with Zepbound 5 mg SC weekly and follow-up in 1 month. 02/16/2024: Weight: 295, BMI: 40. SECA reviewed, Unchanged, down a pound of muscle mass. The patient continues to have above average muscle mass. He is encouraged to continue practicing portion control and prioritizing intake of protein, fruits, vegetables, whole grains, water, etc. Patient is encouraged to continue walking regularly, discussed the importance of adding strength training for continued maintenance of muscle mass. Discussed the importance of prioritizing mental health and limiting stress when possible. Patient still has 1 dose of 2.5 mg left to take, will send for increased dose of Zepbound at 5 mg SC weekly with plan to follow-up in 5 weeks. 01/17/2024: Weight: 297, BMI: 40.3. SECA reviewed, relatively unchanged. The patient is encouraged to continue exercising regularly with added strength training for maintenance of muscle mass/bone health. Reviewed the importance of limiting carbs, sugars, etc. and considering healthier alternatives. The patient establish care with 07/2022 at which time he weighed 346 pounds. The patient has successfully been able to lose nearly 50 pounds with a combination of lifestyle changes and use of weight loss medications. As the patient has been on the maximum dose of Wegovy for 7 months with minimal weight loss patient would like to pursue an alternative medication, Zepbound. The patient is a great candidate for this medication, Rx for Zepbound 2.5 mg SC weekly sent to pharmacy. Reviewed proper use/administratio n and side effects. Reviewed expectations for PA process/insurance coverage. After consultation and careful review of medical history, this patient would benefit from Zepbound based off of the following criteria met: Patient is over the age of 16 with a BMI of 40. Additional comorbidities include HTN, prediabetes, EVER on CPAP. Patient has trialed other methods of weight loss including improving diet and exercise without success over at least three months. This medication is prescribed by or in consultation with a board-certified obesity and weight management physician (Dr. Marlin Vega or Dr. Lucian Vega). 12/06/2023:Weight: 296, BMI: 40.14. Reviewed SECA/goals for implementing sustainable lifestyle changes. Patient is encouraged to increase physical activity, goal 8-10k steps/day. Also discussed the importance of strength training with proper safety/body mechanics for maintenance of muscle mass/bone health. Discussed supplements to aid with sleep including cortisol administrative office manager, melatonin, magnesium glycinate. Patient encouraged to drink 60-80oz water/day. Reviewed the importance of adequate caloric/protein intake in the setting of medication-induce d appetite suppression. Goal of 100g protein/day. Plan to continue Wegovy 2.4 mg SC weekly. 10/06/2023: Weight: 295, BMI: 40.13. All questions answered to the patient's satisfaction. Patient demonstrates understanding of diagnosis and treatments discussed. Follow-up in 4 weeks, sooner should any questions/concern s arise. Case discussed with collaborating physician Marcos Vega who has reviewed the assessment/plan. Chart, medications, labs, and vital signs reviewed. Dictation completed with the use of [employer] voice recognition software, prone to medical misidentification s and grammatical errors. All errors are unintentional. Although the practitioner does try to identify and correct errors, some may be present. Please do not hesitate to contact the practitioner for clarification. Total time spent was 30 minutes with >50% on coordination of care and patient education. 05/24/2024 EVER on CPAP (ICD-10 - G47.33) Eliezer is a 59-year-old male with a PMH of HTN, gout, prediabetes, EVER on CPAP that presents for weight management follow-up. Reviewed [facility] holistic and medical approach to weight loss with emphasis on lifestyle modification. 05/24/2024: Weight: 298, BMI: 40. Patient up 1 pound. Seca reviewed, reveals 2 pounds of fat loss and maintenance of muscle mass. Patient is encouraged to continue making health-conscious diet choices. Discussed the importance of eating regularly with prioritization of protein intake-goal of 90 g/day. Patient is encouraged to continue exercising regularly and hydrating adequately. Plan increase dose of Zepbound to 7.5 mg SC weekly and follow-up in 1 month. 04/19/2024: Weight: 297, BMI: 40.3. Weight up 2 pounds.SECA reviewed, reveals 1 pound of fat gain and 1 pound of muscle mass gain. Patient is encouraged to continue exercising regularly. Discussed the importance of added strength training for maintenance of muscle mass. He is additionally encouraged to continue making health-conscious diet choices/practicin g portion control. Plan to reinitiate treatment with Zepbound 5 mg SC weekly and follow-up in 1 month. 02/16/2024: Weight: 295, BMI: 40. SECA reviewed, Unchanged, down a pound of muscle mass. The patient continues to have above average muscle mass. He is encouraged to continue practicing portion control and prioritizing intake of protein, fruits, vegetables, whole grains, water, etc. Patient is encouraged to continue walking regularly, discussed the importance of adding strength training for continued maintenance of muscle mass. Discussed the importance of prioritizing mental health and limiting stress when possible. Patient still has 1 dose of 2.5 mg left to take, will send for increased dose of Zepbound at 5 mg SC weekly with plan to follow-up in 5 weeks. 01/17/2024: Weight: 297, BMI: 40.3. SECA reviewed, relatively unchanged. The patient is encouraged to continue exercising regularly with added strength training for maintenance of muscle mass/bone health. Reviewed the importance of limiting carbs, sugars, etc. and considering healthier alternatives. The patient establish care with us 07/2022 at which time he weighed 346 pounds. The patient has successfully been able to lose nearly 50 pounds with a combination of lifestyle changes and use of weight loss medications. As the patient has been on the maximum dose of Wegovy for 7 months with minimal weight loss patient would like to pursue an alternative medication, Zepbound. The patient is a great candidate for this medication, Rx for Zepbound 2.5 mg SC weekly sent to pharmacy. Reviewed proper use/administratio n and side effects. Reviewed expectations for PA process/insurance coverage. After consultation and careful review of medical history, this patient would benefit from Zepbound based off of the following criteria met: Patient is over the age of 16 with a BMI of 40. Additional comorbidities include HTN, prediabetes, EVER on CPAP. Patient has trialed other methods of weight loss including improving diet and exercise without success over at least three months. This medication is prescribed by or in consultation with a board-certified obesity and weight management physician (Dr. Marlin Vega or Dr. Lucian Vega). 12/06/2023:Weight: 296, BMI: 40.14. Reviewed SECA/goals for implementing sustainable lifestyle changes. Patient is encouraged to increase physical activity, goal 8-10k steps/day. Also discussed the importance of strength training with proper safety/body mechanics for maintenance of muscle mass/bone health. Discussed supplements to aid with sleep including cortisol administrative office manager, melatonin, magnesium glycinate. Patient encouraged to drink 60-80oz water/day. Reviewed the importance of adequate caloric/protein intake in the setting of medication-induce d appetite suppression. Goal of 100g protein/day. Plan to continue Wegovy 2.4 mg SC weekly. 10/06/2023: Weight: 295, BMI: 40.13. All questions answered to the patient's satisfaction. Patient demonstrates understanding of diagnosis and treatments discussed. Follow-up in 4 weeks, sooner should any questions/concern s arise. Case discussed with collaborating physician Marcos Vega who has reviewed the assessment/plan. Chart, medications, labs, and vital signs reviewed. Dictation completed with the use of [employer] voice recognition software, prone to medical misidentification s and grammatical errors. All errors are unintentional. Although the practitioner does try to identify and correct errors, some may be present. Please do not hesitate to contact the practitioner for clarification. Total time spent was 30 minutes with >50% on coordination of care and patient education. 06/27/2024 Essential hypertension (ICD-10 - I10) Eliezer is a 59-year-old male with a PMH of HTN, gout, prediabetes, EVER on CPAP that presents for weight management follow-up. Reviewed [facility] holistic and medical approach to weight loss with emphasis on lifestyle modification. 06/27/2024: Weight: 293, BMI: 39.7. Patient down 5 pounds.SECA reviewed, reveals loss of muscle mass only. Discussed importance of prioritizing protein intake, goal 100 g/day. The patient is also encouraged to incorporate strength training goal of preservation of adequate muscle mass. Plan to continue Zepbound 7.5 mg SC weekly and follow-up in 1 month. #Mass: On exam there is a 10 cm circular mass protruding from the right shoulder. It is nontender to palpation without overlying erythema/edema. ? Lipoma/soft tissue mass. Patient encouraged to contact his primary care provider for continued evaluation. 05/24/2024: Weight: 298, BMI: 40. Patient up 1 pound. Seca reviewed, reveals 2 pounds of fat loss and maintenance of muscle mass. Patient is encouraged to continue making health-conscious diet choices. Discussed the importance of eating regularly with prioritization of protein intake-goal of 90 g/day. Patient is encouraged to continue exercising regularly and hydrating adequately. Plan increase dose of Zepbound to 7.5 mg SC weekly and follow-up in 1 month. 04/19/2024: Weight: 297, BMI: 40.3. Weight up 2 pounds.SECA reviewed, reveals 1 pound of fat gain and 1 pound of muscle mass gain. Patient is encouraged to continue exercising regularly. Discussed the importance of added strength training for maintenance of muscle mass. He is additionally encouraged to continue making health-conscious diet choices/practicin g portion control. Plan to reinitiate treatment with Zepbound 5 mg SC weekly and follow-up in 1 month. 02/16/2024: Weight: 295, BMI: 40. SECA reviewed, Unchanged, down a pound of muscle mass. The patient continues to have above average muscle mass. He is encouraged to continue practicing portion control and prioritizing intake of protein, fruits, vegetables, whole grains, water, etc. Patient is encouraged to continue walking regularly, discussed the importance of adding strength training for continued maintenance of muscle mass. Discussed the importance of prioritizing mental health and limiting stress when possible. Patient still has 1 dose of 2.5 mg left to take, will send for increased dose of Zepbound at 5 mg SC weekly with plan to follow-up in 5 weeks. 01/17/2024: Weight: 297, BMI: 40.3. SECA reviewed, relatively unchanged. The patient is encouraged to continue exercising regularly with added strength training for maintenance of muscle mass/bone health. Reviewed the importance of limiting carbs, sugars, etc. and considering healthier alternatives. The patient establish care with us 07/2022 at which time he weighed 346 pounds. The patient has successfully been able to lose nearly 50 pounds with a combination of lifestyle changes and use of weight loss medications. As the patient has been on the maximum dose of Wegovy for 7 months with minimal weight loss patient would like to pursue an alternative medication, Zepbound. The patient is a great candidate for this medication, Rx for Zepbound 2.5 mg SC weekly sent to pharmacy. Reviewed proper use/administratio n and side effects. Reviewed expectations for PA process/insurance coverage. After consultation and careful review of medical history, this patient would benefit from Zepbound based off of the following criteria met: Patient is over the age of 16 with a BMI of 40. Additional comorbidities include HTN, prediabetes, EVER on CPAP. Patient has trialed other methods of weight loss including improving diet and exercise without success over at least three months. This medication is prescribed by or in consultation with a board-certified obesity and weight management physician (Dr. Marlin Vega or Dr. Lucian Vega). 12/06/2023:Weight: 296, BMI: 40.14. Reviewed SECA/goals for implementing sustainable lifestyle changes. Patient is encouraged to increase physical activity, goal 8-10k steps/day. Also discussed the importance of strength training with proper safety/body mechanics for maintenance of muscle mass/bone health. Discussed supplements to aid with sleep including cortisol administrative office manager, melatonin, magnesium glycinate. Patient encouraged to drink 60-80oz water/day. Reviewed the importance of adequate caloric/protein intake in the setting of medication-induce d appetite suppression. Goal of 100g protein/day. Plan to continue Wegovy 2.4 mg SC weekly. 10/06/2023: Weight: 295, BMI: 40.13. All questions answered to the patient's satisfaction. Patient demonstrates understanding of diagnosis and treatments discussed. Follow-up in 4 weeks, sooner should any questions/concern s arise. Case discussed with collaborating physician Marcos Vega who has reviewed the assessment/plan. Chart, medications, labs, and vital signs reviewed. Dictation completed with the use of [employer] voice recognition software, prone to medical misidentification s and grammatical errors. All errors are unintentional. Although the practitioner does try to identify and correct errors, some may be present. Please do not hesitate to contact the practitioner for clarification. Total time spent was 30 minutes with >50% on coordination of care and patient education. 07/26/2024 Essential hypertension (ICD-10 - I10) Eliezer is a 59-year-old male with a PMH of HTN, gout, prediabetes, EVER on CPAP that presents for weight management follow-up. Reviewed [facility] holistic and medical approach to weight loss with emphasis on lifestyle modification. 07/26/2024: Weight: 291.2, BMI: 39.5. Patient down 2 pounds. SECA reviewed, relatively unchanged. Patient encouraged to continue making health-conscious diet choices, recommending increasing protein intake and limiting carbs/starches. He is encouraged to continue walking regularly with added strength training 2-3 times weekly. Will increase dose of Zepbound to 10 mg SC weekly and follow-up in 4-6 weeks. 06/27/2024: Weight: 293, BMI: 39.7. Patient down 5 pounds.SECA reviewed, reveals loss of muscle mass only. Discussed importance of prioritizing protein intake, goal 100 g/day. The patient is also encouraged to incorporate strength training goal of preservation of adequate muscle mass. Plan to continue Zepbound 7.5 mg SC weekly and follow-up in 1 month. 05/24/2024: Weight: 298, BMI: 40. Patient up 1 pound. Seca reviewed, reveals 2 pounds of fat loss and maintenance of muscle mass. Patient is encouraged to continue making health-conscious diet choices. Discussed the importance of eating regularly with prioritization of protein intake-goal of 90 g/day. Patient is encouraged to continue exercising regularly and hydrating adequately. Plan increase dose of Zepbound to 7.5 mg SC weekly and follow-up in 1 month. 04/19/2024: Weight: 297, BMI: 40.3. Weight up 2 pounds.SECA reviewed, reveals 1 pound of fat gain and 1 pound of muscle mass gain. Patient is encouraged to continue exercising regularly. Discussed the importance of added strength training for maintenance of muscle mass. He is additionally encouraged to continue making health-conscious diet choices/practicin g portion control. Plan to reinitiate treatment with Zepbound 5 mg SC weekly and follow-up in 1 month. 02/16/2024: Weight: 295, BMI: 40. SECA reviewed, Unchanged, down a pound of muscle mass. The patient continues to have above average muscle mass. He is encouraged to continue practicing portion control and prioritizing intake of protein, fruits, vegetables, whole grains, water, etc. Patient is encouraged to continue walking regularly, discussed the importance of adding strength training for continued maintenance of muscle mass. Discussed the importance of prioritizing mental health and limiting stress when possible. Patient still has 1 dose of 2.5 mg left to take, will send for increased dose of Zepbound at 5 mg SC weekly with plan to follow-up in 5 weeks. 01/17/2024: Weight: 297, BMI: 40.3. SECA reviewed, relatively unchanged. The patient is encouraged to continue exercising regularly with added strength training for maintenance of muscle mass/bone health. Reviewed the importance of limiting carbs, sugars, etc. and considering healthier alternatives. The patient establish care with 07/2022 at which time he weighed 346 pounds. The patient has successfully been able to lose nearly 50 pounds with a combination of lifestyle changes and use of weight loss medications. As the patient has been on the maximum dose of Wegovy for 7 months with minimal weight loss patient would like to pursue an alternative medication, Zepbound. The patient is a great candidate for this medication, Rx for Zepbound 2.5 mg SC weekly sent to pharmacy. Reviewed proper use/administratio n and side effects. Reviewed expectations for PA process/insurance coverage. After consultation and careful review of medical history, this patient would benefit from Zepbound based off of the following criteria met: Patient is over the age of 16 with a BMI of 40. Additional comorbidities include HTN, prediabetes, EVER on CPAP. Patient has trialed other methods of weight loss including improving diet and exercise without success over at least three months. This medication is prescribed by or in consultation with a board-certified obesity and weight management physician (Dr. Marlin Vega or Dr. Lucian Vega). 12/06/2023:Weight: 296, BMI: 40.14. Reviewed SECA/goals for implementing sustainable lifestyle changes. Patient is encouraged to increase physical activity, goal 8-10k steps/day. Also discussed the importance of strength training with proper safety/body mechanics for maintenance of muscle mass/bone health. Discussed supplements to aid with sleep including cortisol administrative office manager, melatonin, magnesium glycinate. Patient encouraged to drink 60-80oz water/day. Reviewed the importance of adequate caloric/protein intake in the setting of medication-induce d appetite suppression. Goal of 100g protein/day. Plan to continue Wegovy 2.4 mg SC weekly. 10/06/2023: Weight: 295, BMI: 40.13. All questions answered to the patient's satisfaction. Patient demonstrates understanding of diagnosis and treatments discussed. Follow-up in 4 weeks, sooner should any questions/concern s arise. Case discussed with collaborating physician Marcos Vega who has reviewed the assessment/plan. Chart, medications, labs, and vital signs reviewed. Dictation completed with the use of [employer] voice recognition software, prone to medical misidentification s and grammatical errors. All errors are unintentional. Although the practitioner does try to identify and correct errors, some may be present. Please do not hesitate to contact the practitioner for clarification. Total time spent was 30 minutes with >50% on coordination of care and patient education. 07/26/2024 Prediabetes (ICD-10 - R73.03) Eliezer is a 59-year-old male with a PMH of HTN, gout, prediabetes, EVER on CPAP that presents for weight management follow-up. Reviewed [facility] holistic and medical approach to weight loss with emphasis on lifestyle modification. 07/26/2024: Weight: 291.2, BMI: 39.5. Patient down 2 pounds. SECA reviewed, relatively unchanged. Patient encouraged to continue making health-conscious diet choices, recommending increasing protein intake and limiting carbs/starches. He is encouraged to continue walking regularly with added strength training 2-3 times weekly. Will increase dose of Zepbound to 10 mg SC weekly and follow-up in 4-6 weeks. 06/27/2024: Weight: 293, BMI: 39.7. Patient down 5 pounds.SECA reviewed, reveals loss of muscle mass only. Discussed importance of prioritizing protein intake, goal 100 g/day. The patient is also encouraged to incorporate strength training goal of preservation of adequate muscle mass. Plan to continue Zepbound 7.5 mg SC weekly and follow-up in 1 month. 05/24/2024: Weight: 298, BMI: 40. Patient up 1 pound. Seca reviewed, reveals 2 pounds of fat loss and maintenance of muscle mass. Patient is encouraged to continue making health-conscious diet choices. Discussed the importance of eating regularly with prioritization of protein intake-goal of 90 g/day. Patient is encouraged to continue exercising regularly and hydrating adequately. Plan increase dose of Zepbound to 7.5 mg SC weekly and follow-up in 1 month. 04/19/2024: Weight: 297, BMI: 40.3. Weight up 2 pounds.SECA reviewed, reveals 1 pound of fat gain and 1 pound of muscle mass gain. Patient is encouraged to continue exercising regularly. Discussed the importance of added strength training for maintenance of muscle mass. He is additionally encouraged to continue making health-conscious diet choices/practicin g portion control. Plan to reinitiate treatment with Zepbound 5 mg SC weekly and follow-up in 1 month. 02/16/2024: Weight: 295, BMI: 40. SECA reviewed, Unchanged, down a pound of muscle mass. The patient continues to have above average muscle mass. He is encouraged to continue practicing portion control and prioritizing intake of protein, fruits, vegetables, whole grains, water, etc. Patient is encouraged to continue walking regularly, discussed the importance of adding strength training for continued maintenance of muscle mass. Discussed the importance of prioritizing mental health and limiting stress when possible. Patient still has 1 dose of 2.5 mg left to take, will send for increased dose of Zepbound at 5 mg SC weekly with plan to follow-up in 5 weeks. 01/17/2024: Weight: 297, BMI: 40.3. SECA reviewed, relatively unchanged. The patient is encouraged to continue exercising regularly with added strength training for maintenance of muscle mass/bone health. Reviewed the importance of limiting carbs, sugars, etc. and considering healthier alternatives. The patient establish care with us 07/2022 at which time he weighed 346 pounds. The patient has successfully been able to lose nearly 50 pounds with a combination of lifestyle changes and use of weight loss medications. As the patient has been on the maximum dose of Wegovy for 7 months with minimal weight loss patient would like to pursue an alternative medication, Zepbound. The patient is a great candidate for this medication, Rx for Zepbound 2.5 mg SC weekly sent to pharmacy. Reviewed proper use/administratio n and side effects. Reviewed expectations for PA process/insurance coverage. After consultation and careful review of medical history, this patient would benefit from Zepbound based off of the following criteria met: Patient is over the age of 16 with a BMI of 40. Additional comorbidities include HTN, prediabetes, EVER on CPAP. Patient has trialed other methods of weight loss including improving diet and exercise without success over at least three months. This medication is prescribed by or in consultation with a board-certified obesity and weight management physician (Dr. Marlin Vega or Dr. Lucian Vega). 12/06/2023:Weight: 296, BMI: 40.14. Reviewed SECA/goals for implementing sustainable lifestyle changes. Patient is encouraged to increase physical activity, goal 8-10k steps/day. Also discussed the importance of strength training with proper safety/body mechanics for maintenance of muscle mass/bone health. Discussed supplements to aid with sleep including cortisol administrative office manager, melatonin, magnesium glycinate. Patient encouraged to drink 60-80oz water/day. Reviewed the importance of adequate caloric/protein intake in the setting of medication-induce d appetite suppression. Goal of 100g protein/day. Plan to continue Wegovy 2.4 mg SC weekly. 10/06/2023: Weight: 295, BMI: 40.13. All questions answered to the patient's satisfaction. Patient demonstrates understanding of diagnosis and treatments discussed. Follow-up in 4 weeks, sooner should any questions/concern s arise. Case discussed with collaborating physician Marcos Vega who has reviewed the assessment/plan. Chart, medications, labs, and vital signs reviewed. Dictation completed with the use of [employer] voice recognition software, prone to medical misidentification s and grammatical errors. All errors are unintentional. Although the practitioner does try to identify and correct errors, some may be present. Please do not hesitate to contact the practitioner for clarification. Total time spent was 30 minutes with >50% on coordination of care and patient education. 05/24/2024 Essential hypertension (ICD-10 - I10) Eliezer is a 59-year-old male with a PMH of HTN, gout, prediabetes, EVER on CPAP that presents for weight management follow-up. Reviewed [facility] holistic and medical approach to weight loss with emphasis on lifestyle modification. 05/24/2024: Weight: 298, BMI: 40. Patient up 1 pound. Seca reviewed, reveals 2 pounds of fat loss and maintenance of muscle mass. Patient is encouraged to continue making health-conscious diet choices. Discussed the importance of eating regularly with prioritization of protein intake-goal of 90 g/day. Patient is encouraged to continue exercising regularly and hydrating adequately. Plan increase dose of Zepbound to 7.5 mg SC weekly and follow-up in 1 month. 04/19/2024: Weight: 297, BMI: 40.3. Weight up 2 pounds.SECA reviewed, reveals 1 pound of fat gain and 1 pound of muscle mass gain. Patient is encouraged to continue exercising regularly. Discussed the importance of added strength training for maintenance of muscle mass. He is additionally encouraged to continue making health-conscious diet choices/practicin g portion control. Plan to reinitiate treatment with Zepbound 5 mg SC weekly and follow-up in 1 month. 02/16/2024: Weight: 295, BMI: 40. SECA reviewed, Unchanged, down a pound of muscle mass. The patient continues to have above average muscle mass. He is encouraged to continue practicing portion control and prioritizing intake of protein, fruits, vegetables, whole grains, water, etc. Patient is encouraged to continue walking regularly, discussed the importance of adding strength training for continued maintenance of muscle mass. Discussed the importance of prioritizing mental health and limiting stress when possible. Patient still has 1 dose of 2.5 mg left to take, will send for increased dose of Zepbound at 5 mg SC weekly with plan to follow-up in 5 weeks. 01/17/2024: Weight: 297, BMI: 40.3. SECA reviewed, relatively unchanged. The patient is encouraged to continue exercising regularly with added strength training for maintenance of muscle mass/bone health. Reviewed the importance of limiting carbs, sugars, etc. and considering healthier alternatives. The patient establish care with us 07/2022 at which time he weighed 346 pounds. The patient has successfully been able to lose nearly 50 pounds with a combination of lifestyle changes and use of weight loss medications. As the patient has been on the maximum dose of Wegovy for 7 months with minimal weight loss patient would like to pursue an alternative medication, Zepbound. The patient is a great candidate for this medication, Rx for Zepbound 2.5 mg SC weekly sent to pharmacy. Reviewed proper use/administratio n and side effects. Reviewed expectations for PA process/insurance coverage. After consultation and careful review of medical history, this patient would benefit from Zepbound based off of the following criteria met: Patient is over the age of 16 with a BMI of 40. Additional comorbidities include HTN, prediabetes, EVER on CPAP. Patient has trialed other methods of weight loss including improving diet and exercise without success over at least three months. This medication is prescribed by or in consultation with a board-certified obesity and weight management physician (Dr. Marlin Vega or Dr. Lucian Vega). 12/06/2023:Weight: 296, BMI: 40.14. Reviewed SECA/goals for implementing sustainable lifestyle changes. Patient is encouraged to increase physical activity, goal 8-10k steps/day. Also discussed the importance of strength training with proper safety/body mechanics for maintenance of muscle mass/bone health. Discussed supplements to aid with sleep including cortisol administrative office manager, melatonin, magnesium glycinate. Patient encouraged to drink 60-80oz water/day. Reviewed the importance of adequate caloric/protein intake in the setting of medication-induce d appetite suppression. Goal of 100g protein/day. Plan to continue Wegovy 2.4 mg SC weekly. 10/06/2023: Weight: 295, BMI: 40.13. All questions answered to the patient's satisfaction. Patient demonstrates understanding of diagnosis and treatments discussed. Follow-up in 4 weeks, sooner should any questions/concern s arise. Case discussed with collaborating physician Marcos Vega who has reviewed the assessment/plan. Chart, medications, labs, and vital signs reviewed. Dictation completed with the use of [employer] voice recognition software, prone to medical misidentification s and grammatical errors. All errors are unintentional. Although the practitioner does try to identify and correct errors, some may be present. Please do not hesitate to contact the practitioner for clarification. Total time spent was 30 minutes with >50% on coordination of care and patient education. 06/27/2024 Prediabetes (ICD-10 - R73.03) Eliezer is a 59-year-old male with a PMH of HTN, gout, prediabetes, EVER on CPAP that presents for weight management follow-up. Reviewed [facility] holistic and medical approach to weight loss with emphasis on lifestyle modification. 06/27/2024: Weight: 293, BMI: 39.7. Patient down 5 pounds.SECA reviewed, reveals loss of muscle mass only. Discussed importance of prioritizing protein intake, goal 100 g/day. The patient is also encouraged to incorporate strength training goal of preservation of adequate muscle mass. Plan to continue Zepbound 7.5 mg SC weekly and follow-up in 1 month. #Mass: On exam there is a 10 cm circular mass protruding from the right shoulder. It is nontender to palpation without overlying erythema/edema. ? Lipoma/soft tissue mass. Patient encouraged to contact his primary care provider for continued evaluation. 05/24/2024: Weight: 298, BMI: 40. Patient up 1 pound. Seca reviewed, reveals 2 pounds of fat loss and maintenance of muscle mass. Patient is encouraged to continue making health-conscious diet choices. Discussed the importance of eating regularly with prioritization of protein intake-goal of 90 g/day. Patient is encouraged to continue exercising regularly and hydrating adequately. Plan increase dose of Zepbound to 7.5 mg SC weekly and follow-up in 1 month. 04/19/2024: Weight: 297, BMI: 40.3. Weight up 2 pounds.SECA reviewed, reveals 1 pound of fat gain and 1 pound of muscle mass gain. Patient is encouraged to continue exercising regularly. Discussed the importance of added strength training for maintenance of muscle mass. He is additionally encouraged to continue making health-conscious diet choices/practicin g portion control. Plan to reinitiate treatment with Zepbound 5 mg SC weekly and follow-up in 1 month. 02/16/2024: Weight: 295, BMI: 40. SECA reviewed, Unchanged, down a pound of muscle mass. The patient continues to have above average muscle mass. He is encouraged to continue practicing portion control and prioritizing intake of protein, fruits, vegetables, whole grains, water, etc. Patient is encouraged to continue walking regularly, discussed the importance of adding strength training for continued maintenance of muscle mass. Discussed the importance of prioritizing mental health and limiting stress when possible. Patient still has 1 dose of 2.5 mg left to take, will send for increased dose of Zepbound at 5 mg SC weekly with plan to follow-up in 5 weeks. 01/17/2024: Weight: 297, BMI: 40.3. SECA reviewed, relatively unchanged. The patient is encouraged to continue exercising regularly with added strength training for maintenance of muscle mass/bone health. Reviewed the importance of limiting carbs, sugars, etc. and considering healthier alternatives. The patient establish care with us 07/2022 at which time he weighed 346 pounds. The patient has successfully been able to lose nearly 50 pounds with a combination of lifestyle changes and use of weight loss medications. As the patient has been on the maximum dose of Wegovy for 7 months with minimal weight loss patient would like to pursue an alternative medication, Zepbound. The patient is a great candidate for this medication, Rx for Zepbound 2.5 mg SC weekly sent to pharmacy. Reviewed proper use/administratio n and side effects. Reviewed expectations for PA process/insurance coverage. After consultation and careful review of medical history, this patient would benefit from Zepbound based off of the following criteria met: Patient is over the age of 16 with a BMI of 40. Additional comorbidities include HTN, prediabetes, EVER on CPAP. Patient has trialed other methods of weight loss including improving diet and exercise without success over at least three months. This medication is prescribed by or in consultation with a board-certified obesity and weight management physician (Dr. Marlin Vega or Dr. Lucian Vega). 12/06/2023:Weight: 296, BMI: 40.14. Reviewed SECA/goals for implementing sustainable lifestyle changes. Patient is encouraged to increase physical activity, goal 8-10k steps/day. Also discussed the importance of strength training with proper safety/body mechanics for maintenance of muscle mass/bone health. Discussed supplements to aid with sleep including cortisol administrative office manager, melatonin, magnesium glycinate. Patient encouraged to drink 60-80oz water/day. Reviewed the importance of adequate caloric/protein intake in the setting of medication-induce d appetite suppression. Goal of 100g protein/day. Plan to continue Wegovy 2.4 mg SC weekly. 10/06/2023: Weight: 295, BMI: 40.13. All questions answered to the patient's satisfaction. Patient demonstrates understanding of diagnosis and treatments discussed. Follow-up in 4 weeks, sooner should any questions/concern s arise. Case discussed with collaborating physician Marcos Vega who has reviewed the assessment/plan. Chart, medications, labs, and vital signs reviewed. Dictation completed with the use of [employer] voice recognition software, prone to medical misidentification s and grammatical errors. All errors are unintentional. Although the practitioner does try to identify and correct errors, some may be present. Please do not hesitate to contact the practitioner for clarification. Total time spent was 30 minutes with >50% on coordination of care and patient education. 04/19/2024 Prediabetes (ICD-10 - R73.03) Eliezer is a 59-year-old male with a PMH of HTN, gout, prediabetes, EVER on CPAP that presents for weight management follow-up. Reviewed [facility] holistic and medical approach to weight loss with emphasis on lifestyle modification. 04/19/2024: Weight: 297, BMI: 40.3. Weight up 2 pounds.SECA reviewed, reveals 1 pound of fat gain and 1 pound of muscle mass gain. Patient is encouraged to continue exercising regularly. Discussed the importance of added strength training for maintenance of muscle mass. He is additionally encouraged to continue making health-conscious diet choices/practicin g portion control. Plan to reinitiate treatment with Zepbound 5 mg SC weekly and follow-up in 1 month. 02/16/2024: Weight: 295, BMI: 40. SECA reviewed, Unchanged, down a pound of muscle mass. The patient continues to have above average muscle mass. He is encouraged to continue practicing portion control and prioritizing intake of protein, fruits, vegetables, whole grains, water, etc. Patient is encouraged to continue walking regularly, discussed the importance of adding strength training for continued maintenance of muscle mass. Discussed the importance of prioritizing mental health and limiting stress when possible. Patient still has 1 dose of 2.5 mg left to take, will send for increased dose of Zepbound at 5 mg SC weekly with plan to follow-up in 5 weeks. 01/17/2024: Weight: 297, BMI: 40.3. SECA reviewed, relatively unchanged. The patient is encouraged to continue exercising regularly with added strength training for maintenance of muscle mass/bone health. Reviewed the importance of limiting carbs, sugars, etc. and considering healthier alternatives. The patient establish care with 07/2022 at which time he weighed 346 pounds. The patient has successfully been able to lose nearly 50 pounds with a combination of lifestyle changes and use of weight loss medications. As the patient has been on the maximum dose of Wegovy for 7 months with minimal weight loss patient would like to pursue an alternative medication, Zepbound. The patient is a great candidate for this medication, Rx for Zepbound 2.5 mg SC weekly sent to pharmacy. Reviewed proper use/administratio n and side effects. Reviewed expectations for PA process/insurance coverage. After consultation and careful review of medical history, this patient would benefit from Zepbound based off of the following criteria met: Patient is over the age of 16 with a BMI of 40. Additional comorbidities include HTN, prediabetes, EVER on CPAP. Patient has trialed other methods of weight loss including improving diet and exercise without success over at least three months. This medication is prescribed by or in consultation with a board-certified obesity and weight management physician (Dr. Marlin Vega or Dr. Lucian Vega). 12/06/2023:Weight: 296, BMI: 40.14. Reviewed SECA/goals for implementing sustainable lifestyle changes. Patient is encouraged to increase physical activity, goal 8-10k steps/day. Also discussed the importance of strength training with proper safety/body mechanics for maintenance of muscle mass/bone health. Discussed supplements to aid with sleep including cortisol administrative office manager, melatonin, magnesium glycinate. Patient encouraged to drink 60-80oz water/day. Reviewed the importance of adequate caloric/protein intake in the setting of medication-induce d appetite suppression. Goal of 100g protein/day. Plan to continue Wegovy 2.4 mg SC weekly. 10/06/2023: Weight: 295, BMI: 40.13. All questions answered to the patient's satisfaction. Patient demonstrates understanding of diagnosis and treatments discussed. Follow-up in 4 weeks, sooner should any questions/concern s arise. Case discussed with collaborating physician Marcos Vega who has reviewed the assessment/plan. Chart, medications, labs, and vital signs reviewed. Dictation completed with the use of [employer] voice recognition software, prone to medical misidentification s and grammatical errors. All errors are unintentional. Although the practitioner does try to identify and correct errors, some may be present. Please do not hesitate to contact the practitioner for clarification. Total time spent was 30 minutes with >50% on coordination of care and patient education. 02/16/2024 Essential hypertension (ICD-10 - I10) Eliezer is a 58-year-old male with a PMH of HTN, gout, prediabetes, EVER on CPAP that presents for weight management follow-up. Reviewed [facility] holistic and medical approach to weight loss with emphasis on lifestyle modification. 02/16/2024: Weight: 295, BMI: 40. SECA reviewed, Unchanged, down a pound of muscle mass. The patient continues to have above average muscle mass. He is encouraged to continue practicing portion control and prioritizing intake of protein, fruits, vegetables, whole grains, water, etc. Patient is encouraged to continue walking regularly, discussed the importance of adding strength training for continued maintenance of muscle mass. Discussed the importance of prioritizing mental health and limiting stress when possible. Patient still has 1 dose of 2.5 mg left to take, will send for increased dose of Zepbound at 5 mg SC weekly with plan to follow-up in 5 weeks. 01/17/2024: Weight: 297, BMI: 40.3. SECA reviewed, relatively unchanged. The patient is encouraged to continue exercising regularly with added strength training for maintenance of muscle mass/bone health. Reviewed the importance of limiting carbs, sugars, etc. and considering healthier alternatives. The patient establish care with us 07/2022 at which time he weighed 346 pounds. The patient has successfully been able to lose nearly 50 pounds with a combination of lifestyle changes and use of weight loss medications. As the patient has been on the maximum dose of Wegovy for 7 months with minimal weight loss patient would like to pursue an alternative medication, Zepbound. The patient is a great candidate for this medication, Rx for Zepbound 2.5 mg SC weekly sent to pharmacy. Reviewed proper use/administratio n and side effects. Reviewed expectations for PA process/insurance coverage. After consultation and careful review of medical history, this patient would benefit from Zepbound based off of the following criteria met: Patient is over the age of 16 with a BMI of 40. Additional comorbidities include HTN, prediabetes, EVER on CPAP. Patient has trialed other methods of weight loss including improving diet and exercise without success over at least three months. This medication is prescribed by or in consultation with a board-certified obesity and weight management physician (Dr. Marlin Vega or Dr. Lucian Vega). 12/06/2023:Weight: 296, BMI: 40.14. Reviewed SECA/goals for implementing sustainable lifestyle changes. Patient is encouraged to increase physical activity, goal 8-10k steps/day. Also discussed the importance of strength training with proper safety/body mechanics for maintenance of muscle mass/bone health. Discussed supplements to aid with sleep including cortisol administrative office manager, melatonin, magnesium glycinate. Patient encouraged to drink 60-80oz water/day. Reviewed the importance of adequate caloric/protein intake in the setting of medication-induce d appetite suppression. Goal of 100g protein/day. Plan to continue Wegovy 2.4 mg SC weekly. 10/06/2023: Weight: 295, BMI: 40.13. All questions answered to the patient's satisfaction. Patient demonstrates understanding of diagnosis and treatments discussed. Follow-up in 4 weeks, sooner should any questions/concern s arise. Case discussed with collaborating physician Marcos Vega who has reviewed the assessment/plan. Chart, medications, labs, and vital signs reviewed. Dictation completed with the use of [employer] voice recognition software, prone to medical misidentification s and grammatical errors. All errors are unintentional. Although the practitioner does try to identify and correct errors, some may be present. Please do not hesitate to contact the practitioner for clarification. Total time spent was 30 minutes with >50% on coordination of care and patient education. 01/17/2024 Essential hypertension (ICD-10 - I10) Eliezer is a 58-year-old male with a PMH of HTN, gout, prediabetes, EVER on CPAP that presents for weight management follow-up. Reviewed [facility] holistic and medical approach to weight loss with emphasis on lifestyle modification. 01/17/2024: Weight: 297, BMI: 40.3. SECA reviewed, relatively unchanged. The patient is encouraged to continue exercising regularly with added strength training for maintenance of muscle mass/bone health. Reviewed the importance of limiting carbs, sugars, etc. and considering healthier alternatives. The patient establish care with us 07/2022 at which time he weighed 346 pounds. The patient has successfully been able to lose nearly 50 pounds with a combination of lifestyle changes and use of weight loss medications. As the patient has been on the maximum dose of Wegovy for 7 months with minimal weight loss patient would like to pursue an alternative medication, Zepbound. The patient is a great candidate for this medication, Rx for Zepbound 2.5 mg SC weekly sent to pharmacy. Reviewed proper use/administratio n and side effects. Reviewed expectations for PA process/insurance coverage. After consultation and careful review of medical history, this patient would benefit from Zepbound based off of the following criteria met: Patient is over the age of 16 with a BMI of 40. Additional comorbidities include HTN, prediabetes, EVER on CPAP. Patient has trialed other methods of weight loss including improving diet and exercise without success over at least three months. This medication is prescribed by or in consultation with a board-certified obesity and weight management physician (Dr. Marlin Vega or Dr. Lucian Vega). 12/06/2023:Weight: 296, BMI: 40.14. Reviewed SECA/goals for implementing sustainable lifestyle changes. Patient is encouraged to increase physical activity, goal 8-10k steps/day. Also discussed the importance of strength training with proper safety/body mechanics for maintenance of muscle mass/bone health. Discussed supplements to aid with sleep including cortisol administrative office manager, melatonin, magnesium glycinate. Patient encouraged to drink 60-80oz water/day. Reviewed the importance of adequate caloric/protein intake in the setting of medication-induce d appetite suppression. Goal of 100g protein/day. Plan to continue Wegovy 2.4 mg SC weekly. 10/06/2023: Weight: 295, BMI: 40.13. All questions answered to the patient's satisfaction. Patient demonstrates understanding of diagnosis and treatments discussed. Follow-up in 4 weeks, sooner should any questions/concern s arise. Case discussed with collaborating physician Markell Vega who has reviewed the assessment/plan. Chart, medications, labs, and vital signs reviewed. Dictation completed with the use of [employer] voice recognition software, prone to medical misidentification s and grammatical errors. All errors are unintentional. Although the practitioner does try to identify and correct errors, some may be present. Please do not hesitate to contact the practitioner for clarification. Total time spent was 25 minutes with >50% on coordination of care and patient education. 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 Reviewed [facility] holistic and medical approach to weight loss with emphasis on lifestyle modification. Patient is educated that a healthy lifestyle aids in combating obesity as well as reducing the risk of developing obesity-related medical complications including but not limited to diabetes and cardiovascular disease. Detailed education provided about taking steps to initiate sustainable lifestyle changes including incorporating regular physical activity, making healthy diet choices, and prioritizing mental health. Information provided about literature including The Food Rules by Zack Veloz and Eat Fat Get Lean by Dr Gray Alvarenga. Handouts including lifestyle checklist, protein content of food, low calorie snacks, and cholesterol information sheet provided. Diagnostic testing/ SECA scale offered. Discussed the importance of regular SECA scale measurements to ensure healthy weight loss. Patient established care as weight management patient 08/03/2022 his weight was 346. 12/06/2023:Weight: 296, BMI: 40.14. Reviewed SECA/goals for implementing sustainable lifestyle changes. Patient is encouraged to increase physical activity, goal 8-10k steps/day. Also discussed the importance of strength training with proper safety/body mechanics for maintenance of muscle mass/bone health. Discussed supplements to aid with sleep including cortisol administrative office manager, melatonin, magnesium glycinate. Patient encouraged to drink 60-80oz water/day. Reviewed the importance of adequate caloric/protein intake in the setting of medication-induce d appetite suppression. Goal of 100g protien/day. Plan to continue Wegovy 2.4 mg SC weekly. 10/06/2023: Weight: 295, BMI: 40.13. All questions answered to the patients satisfaction. Patient demonstrates understanding of diagnosis and treatments discussed. Follow-up in 4 weeks, sooner should any questions/concern s arise. Case discussed with collaborating physician Marcos Vega who has reviewed the assessment/plan. Chart, medications, labs, and vital signs reviewed. Dictation completed with the use of [employer] voice recognition software, prone to medical misidentification s and grammatical errors. All errors are unintentional. Although the practitioner does try to identify and correct errors, some may be present. Please do not hesitate to contact the practitioner for clarification. 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 Reviewed [facility] holistic and medical approach to weight loss with emphasis on lifestyle modification. 01/17/2024: Weight: 297, BMI: 40.3. SECA reviewed, relatively unchanged. The patient is encouraged to continue exercising regularly with added strength training for maintenance of muscle mass/bone health. Reviewed the importance of limiting carbs, sugars, etc. and considering healthier alternatives. The patient establish care with 07/2022 at which time he weighed 346 pounds. The patient has successfully been able to lose nearly 50 pounds with a combination of lifestyle changes and use of weight loss medications. As the patient has been on the maximum dose of Wegovy for 7 months with minimal weight loss patient would like to pursue an alternative medication, Zepbound. The patient is a great candidate for this medication, Rx for Zepbound 2.5 mg SC weekly sent to pharmacy. Reviewed proper use/administratio n and side effects. Reviewed expectations for PA process/insurance coverage. After consultation and careful review of medical history, this patient would benefit from Zepbound based off of the following criteria met: Patient is over the age of 16 with a BMI of 40. Additional comorbidities include HTN, prediabetes, EVER on CPAP. Patient has trialed other methods of weight loss including improving diet and exercise without success over at least three months. This medication is prescribed by or in consultation with a board-certified obesity and weight management physician (Dr. Marlin Vega or Dr. Lucian Vega). 12/06/2023:Weight: 296, BMI: 40.14. Reviewed SECA/goals for implementing sustainable lifestyle changes. Patient is encouraged to increase physical activity, goal 8-10k steps/day. Also discussed the importance of strength training with proper safety/body mechanics for maintenance of muscle mass/bone health. Discussed supplements to aid with sleep including cortisol administrative office manager, melatonin, magnesium glycinate. Patient encouraged to drink 60-80oz water/day. Reviewed the importance of adequate caloric/protein intake in the setting of medication-induce d appetite suppression. Goal of 100g protein/day. Plan to continue Wegovy 2.4 mg SC weekly. 10/06/2023: Weight: 295, BMI: 40.13. All questions answered to the patient's satisfaction. Patient demonstrates understanding of diagnosis and treatments discussed. Follow-up in 4 weeks, sooner should any questions/concern s arise. Case discussed with collaborating physician Markell Vega who has reviewed the assessment/plan. Chart, medications, labs, and vital signs reviewed. Dictation completed with the use of [employer] voice recognition software, prone to medical misidentification s and grammatical errors. All errors are unintentional. Although the practitioner does try to identify and correct errors, some may be present. Please do not hesitate to contact the practitioner for clarification. Total time spent was 25 minutes with >50% on coordination of care and patient education. 12/06/2023 Prediabetes (ICD-10 - R73.03) Eliezer is a 58-year-old male with a PMH of HTN, gout, prediabetes, EVER on CPAP that presents for weight management follow-up. Reviewed [facility] holistic and medical approach to weight loss with emphasis on lifestyle modification. Patient is educated that a healthy lifestyle aids in combating obesity as well as reducing the risk of developing obesity-related medical complications including but not limited to diabetes and cardiovascular disease. Detailed education provided about taking steps to initiate sustainable lifestyle changes including incorporating regular physical activity, making healthy diet choices, and prioritizing mental health. Information provided about literature including The Food Rules by Zack Veloz and Eat Fat Get Lean by Dr Gray Alvarenga. Handouts including lifestyle checklist, protein content of food, low calorie snacks, and cholesterol information sheet provided. Diagnostic testing/ SECA scale offered. Discussed the importance of regular SECA scale measurements to ensure healthy weight loss. Patient established care as weight management patient 08/03/2022 his weight was 346. 12/06/2023:Weight: 296, BMI: 40.14. Reviewed SECA/goals for implementing sustainable lifestyle changes. Patient is encouraged to increase physical activity, goal 8-10k steps/day. Also discussed the importance of strength training with proper safety/body mechanics for maintenance of muscle mass/bone health. Discussed supplements to aid with sleep including cortisol administrative office manager, melatonin, magnesium glycinate. Patient encouraged to drink 60-80oz water/day. Reviewed the importance of adequate caloric/protein intake in the setting of medication-induce d appetite suppression. Goal of 100g protien/day. Plan to continue Wegovy 2.4 mg SC weekly. 10/06/2023: Weight: 295, BMI: 40.13. All questions answered to the patients satisfaction. Patient demonstrates understanding of diagnosis and treatments discussed. Follow-up in 4 weeks, sooner should any questions/concern s arise. Case discussed with collaborating physician Marcos Vega who has reviewed the assessment/plan. Chart, medications, labs, and vital signs reviewed. Dictation completed with the use of [employer] voice recognition software, prone to medical misidentification s and grammatical errors. All errors are unintentional. Although the practitioner does try to identify and correct errors, some may be present. Please do not hesitate to contact the practitioner for clarification. 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 Reviewed [facility] holistic and medical approach to weight loss with emphasis on lifestyle modification. 02/16/2024: Weight: 295, BMI: 40. SECA reviewed, Unchanged, down a pound of muscle mass. The patient continues to have above average muscle mass. He is encouraged to continue practicing portion control and prioritizing intake of protein, fruits, vegetables, whole grains, water, etc. Patient is encouraged to continue walking regularly, discussed the importance of adding strength training for continued maintenance of muscle mass. Discussed the importance of prioritizing mental health and limiting stress when possible. Patient still has 1 dose of 2.5 mg left to take, will send for increased dose of Zepbound at 5 mg SC weekly with plan to follow-up in 5 weeks. 01/17/2024: Weight: 297, BMI: 40.3. SECA reviewed, relatively unchanged. The patient is encouraged to continue exercising regularly with added strength training for maintenance of muscle mass/bone health. Reviewed the importance of limiting carbs, sugars, etc. and considering healthier alternatives. The patient establish care with us 07/2022 at which time he weighed 346 pounds. The patient has successfully been able to lose nearly 50 pounds with a combination of lifestyle changes and use of weight loss medications. As the patient has been on the maximum dose of Wegovy for 7 months with minimal weight loss patient would like to pursue an alternative medication, Zepbound. The patient is a great candidate for this medication, Rx for Zepbound 2.5 mg SC weekly sent to pharmacy. Reviewed proper use/administratio n and side effects. Reviewed expectations for PA process/insurance coverage. After consultation and careful review of medical history, this patient would benefit from Zepbound based off of the following criteria met: Patient is over the age of 16 with a BMI of 40. Additional comorbidities include HTN, prediabetes, EVER on CPAP. Patient has trialed other methods of weight loss including improving diet and exercise without success over at least three months. This medication is prescribed by or in consultation with a board-certified obesity and weight management physician (Dr. Marlin Vega or Dr. Lucian Vega). 12/06/2023:Weight: 296, BMI: 40.14. Reviewed SECA/goals for implementing sustainable lifestyle changes. Patient is encouraged to increase physical activity, goal 8-10k steps/day. Also discussed the importance of strength training with proper safety/body mechanics for maintenance of muscle mass/bone health. Discussed supplements to aid with sleep including cortisol administrative office manager, melatonin, magnesium glycinate. Patient encouraged to drink 60-80oz water/day. Reviewed the importance of adequate caloric/protein intake in the setting of medication-induce d appetite suppression. Goal of 100g protein/day. Plan to continue Wegovy 2.4 mg SC weekly. 10/06/2023: Weight: 295, BMI: 40.13. All questions answered to the patient's satisfaction. Patient demonstrates understanding of diagnosis and treatments discussed. Follow-up in 4 weeks, sooner should any questions/concern s arise. Case discussed with collaborating physician Marcos Vega who has reviewed the assessment/plan. Chart, medications, labs, and vital signs reviewed. Dictation completed with the use of [employer] voice recognition software, prone to medical misidentification s and grammatical errors. All errors are unintentional. Although the practitioner does try to identify and correct errors, some may be present. Please do not hesitate to contact the practitioner for clarification. Total time spent was 30 minutes with >50% on coordination of care and patient education. 04/19/2024 Nutritional counseling (ICD-10 - Z71.3) Eliezer is a 59-year-old male with a PMH of HTN, gout, prediabetes, EVER on CPAP that presents for weight management follow-up. Reviewed [facility] holistic and medical approach to weight loss with emphasis on lifestyle modification. 04/19/2024: Weight: 297, BMI: 40.3. Weight up 2 pounds.SECA reviewed, reveals 1 pound of fat gain and 1 pound of muscle mass gain. Patient is encouraged to continue exercising regularly. Discussed the importance of added strength training for maintenance of muscle mass. He is additionally encouraged to continue making health-conscious diet choices/practicin g portion control. Plan to reinitiate treatment with Zepbound 5 mg SC weekly and follow-up in 1 month. 02/16/2024: Weight: 295, BMI: 40. SECA reviewed, Unchanged, down a pound of muscle mass. The patient continues to have above average muscle mass. He is encouraged to continue practicing portion control and prioritizing intake of protein, fruits, vegetables, whole grains, water, etc. Patient is encouraged to continue walking regularly, discussed the importance of adding strength training for continued maintenance of muscle mass. Discussed the importance of prioritizing mental health and limiting stress when possible. Patient still has 1 dose of 2.5 mg left to take, will send for increased dose of Zepbound at 5 mg SC weekly with plan to follow-up in 5 weeks. 01/17/2024: Weight: 297, BMI: 40.3. SECA reviewed, relatively unchanged. The patient is encouraged to continue exercising regularly with added strength training for maintenance of muscle mass/bone health. Reviewed the importance of limiting carbs, sugars, etc. and considering healthier alternatives. The patient establish care with 07/2022 at which time he weighed 346 pounds. The patient has successfully been able to lose nearly 50 pounds with a combination of lifestyle changes and use of weight loss medications. As the patient has been on the maximum dose of Wegovy for 7 months with minimal weight loss patient would like to pursue an alternative medication, Zepbound. The patient is a great candidate for this medication, Rx for Zepbound 2.5 mg SC weekly sent to pharmacy. Reviewed proper use/administratio n and side effects. Reviewed expectations for PA process/insurance coverage. After consultation and careful review of medical history, this patient would benefit from Zepbound based off of the following criteria met: Patient is over the age of 16 with a BMI of 40. Additional comorbidities include HTN, prediabetes, EVER on CPAP. Patient has trialed other methods of weight loss including improving diet and exercise without success over at least three months. This medication is prescribed by or in consultation with a board-certified obesity and weight management physician (Dr. Marlin Vega or Dr. Lucian Vega). 12/06/2023:Weight: 296, BMI: 40.14. Reviewed SECA/goals for implementing sustainable lifestyle changes. Patient is encouraged to increase physical activity, goal 8-10k steps/day. Also discussed the importance of strength training with proper safety/body mechanics for maintenance of muscle mass/bone health. Discussed supplements to aid with sleep including cortisol administrative office manager, melatonin, magnesium glycinate. Patient encouraged to drink 60-80oz water/day. Reviewed the importance of adequate caloric/protein intake in the setting of medication-induce d appetite suppression. Goal of 100g protein/day. Plan to continue Wegovy 2.4 mg SC weekly. 10/06/2023: Weight: 295, BMI: 40.13. All questions answered to the patient's satisfaction. Patient demonstrates understanding of diagnosis and treatments discussed. Follow-up in 4 weeks, sooner should any questions/concern s arise. Case discussed with collaborating physician Marcos Vega who has reviewed the assessment/plan. Chart, medications, labs, and vital signs reviewed. Dictation completed with the use of [employer] voice recognition software, prone to medical misidentification s and grammatical errors. All errors are unintentional. Although the practitioner does try to identify and correct errors, some may be present. Please do not hesitate to contact the practitioner for clarification. Total time spent was 30 minutes with >50% on coordination of care and patient education. 05/24/2024 Prediabetes (ICD-10 - R73.03) Eliezer is a 59-year-old male with a PMH of HTN, gout, prediabetes, EVER on CPAP that presents for weight management follow-up. Reviewed [facility] holistic and medical approach to weight loss with emphasis on lifestyle modification. 05/24/2024: Weight: 298, BMI: 40. Patient up 1 pound. Seca reviewed, reveals 2 pounds of fat loss and maintenance of muscle mass. Patient is encouraged to continue making health-conscious diet choices. Discussed the importance of eating regularly with prioritization of protein intake-goal of 90 g/day. Patient is encouraged to continue exercising regularly and hydrating adequately. Plan increase dose of Zepbound to 7.5 mg SC weekly and follow-up in 1 month. 04/19/2024: Weight: 297, BMI: 40.3. Weight up 2 pounds.SECA reviewed, reveals 1 pound of fat gain and 1 pound of muscle mass gain. Patient is encouraged to continue exercising regularly. Discussed the importance of added strength training for maintenance of muscle mass. He is additionally encouraged to continue making health-conscious diet choices/practicin g portion control. Plan to reinitiate treatment with Zepbound 5 mg SC weekly and follow-up in 1 month. 02/16/2024: Weight: 295, BMI: 40. SECA reviewed, Unchanged, down a pound of muscle mass. The patient continues to have above average muscle mass. He is encouraged to continue practicing portion control and prioritizing intake of protein, fruits, vegetables, whole grains, water, etc. Patient is encouraged to continue walking regularly, discussed the importance of adding strength training for continued maintenance of muscle mass. Discussed the importance of prioritizing mental health and limiting stress when possible. Patient still has 1 dose of 2.5 mg left to take, will send for increased dose of Zepbound at 5 mg SC weekly with plan to follow-up in 5 weeks. 01/17/2024: Weight: 297, BMI: 40.3. SECA reviewed, relatively unchanged. The patient is encouraged to continue exercising regularly with added strength training for maintenance of muscle mass/bone health. Reviewed the importance of limiting carbs, sugars, etc. and considering healthier alternatives. The patient establish care with 07/2022 at which time he weighed 346 pounds. The patient has successfully been able to lose nearly 50 pounds with a combination of lifestyle changes and use of weight loss medications. As the patient has been on the maximum dose of Wegovy for 7 months with minimal weight loss patient would like to pursue an alternative medication, Zepbound. The patient is a great candidate for this medication, Rx for Zepbound 2.5 mg SC weekly sent to pharmacy. Reviewed proper use/administratio n and side effects. Reviewed expectations for PA process/insurance coverage. After consultation and careful review of medical history, this patient would benefit from Zepbound based off of the following criteria met: Patient is over the age of 16 with a BMI of 40. Additional comorbidities include HTN, prediabetes, EVER on CPAP. Patient has trialed other methods of weight loss including improving diet and exercise without success over at least three months. This medication is prescribed by or in consultation with a board-certified obesity and weight management physician (Dr. aMrlin Vega or Dr. Lucian Vega). 12/06/2023:Weight: 296, BMI: 40.14. Reviewed SECA/goals for implementing sustainable lifestyle changes. Patient is encouraged to increase physical activity, goal 8-10k steps/day. Also discussed the importance of strength training with proper safety/body mechanics for maintenance of muscle mass/bone health. Discussed supplements to aid with sleep including cortisol administrative office manager, melatonin, magnesium glycinate. Patient encouraged to drink 60-80oz water/day. Reviewed the importance of adequate caloric/protein intake in the setting of medication-induce d appetite suppression. Goal of 100g protein/day. Plan to continue Wegovy 2.4 mg SC weekly. 10/06/2023: Weight: 295, BMI: 40.13. All questions answered to the patient's satisfaction. Patient demonstrates understanding of diagnosis and treatments discussed. Follow-up in 4 weeks, sooner should any questions/concern s arise. Case discussed with collaborating physician Marcos Vega who has reviewed the assessment/plan. Chart, medications, labs, and vital signs reviewed. Dictation completed with the use of [employer] voice recognition software, prone to medical misidentification s and grammatical errors. All errors are unintentional. Although the practitioner does try to identify and correct errors, some may be present. Please do not hesitate to contact the practitioner for clarification. Total time spent was 30 minutes with >50% on coordination of care and patient education. 06/27/2024 Nutritional counseling (ICD-10 - Z71.3) Eliezer is a 59-year-old male with a PMH of HTN, gout, prediabetes, EVER on CPAP that presents for weight management follow-up. Reviewed [facility] holistic and medical approach to weight loss with emphasis on lifestyle modification. 06/27/2024: Weight: 293, BMI: 39.7. Patient down 5 pounds.SECA reviewed, reveals loss of muscle mass only. Discussed importance of prioritizing protein intake, goal 100 g/day. The patient is also encouraged to incorporate strength training goal of preservation of adequate muscle mass. Plan to continue Zepbound 7.5 mg SC weekly and follow-up in 1 month. #Mass: On exam there is a 10 cm circular mass protruding from the right shoulder. It is nontender to palpation without overlying erythema/edema. ? Lipoma/soft tissue mass. Patient encouraged to contact his primary care provider for continued evaluation. 05/24/2024: Weight: 298, BMI: 40. Patient up 1 pound. Seca reviewed, reveals 2 pounds of fat loss and maintenance of muscle mass. Patient is encouraged to continue making health-conscious diet choices. Discussed the importance of eating regularly with prioritization of protein intake-goal of 90 g/day. Patient is encouraged to continue exercising regularly and hydrating adequately. Plan increase dose of Zepbound to 7.5 mg SC weekly and follow-up in 1 month. 04/19/2024: Weight: 297, BMI: 40.3. Weight up 2 pounds.SECA reviewed, reveals 1 pound of fat gain and 1 pound of muscle mass gain. Patient is encouraged to continue exercising regularly. Discussed the importance of added strength training for maintenance of muscle mass. He is additionally encouraged to continue making health-conscious diet choices/practicin g portion control. Plan to reinitiate treatment with Zepbound 5 mg SC weekly and follow-up in 1 month. 02/16/2024: Weight: 295, BMI: 40. SECA reviewed, Unchanged, down a pound of muscle mass. The patient continues to have above average muscle mass. He is encouraged to continue practicing portion control and prioritizing intake of protein, fruits, vegetables, whole grains, water, etc. Patient is encouraged to continue walking regularly, discussed the importance of adding strength training for continued maintenance of muscle mass. Discussed the importance of prioritizing mental health and limiting stress when possible. Patient still has 1 dose of 2.5 mg left to take, will send for increased dose of Zepbound at 5 mg SC weekly with plan to follow-up in 5 weeks. 01/17/2024: Weight: 297, BMI: 40.3. SECA reviewed, relatively unchanged. The patient is encouraged to continue exercising regularly with added strength training for maintenance of muscle mass/bone health. Reviewed the importance of limiting carbs, sugars, etc. and considering healthier alternatives. The patient establish care with us 07/2022 at which time he weighed 346 pounds. The patient has successfully been able to lose nearly 50 pounds with a combination of lifestyle changes and use of weight loss medications. As the patient has been on the maximum dose of Wegovy for 7 months with minimal weight loss patient would like to pursue an alternative medication, Zepbound. The patient is a great candidate for this medication, Rx for Zepbound 2.5 mg SC weekly sent to pharmacy. Reviewed proper use/administratio n and side effects. Reviewed expectations for PA process/insurance coverage. After consultation and careful review of medical history, this patient would benefit from Zepbound based off of the following criteria met: Patient is over the age of 16 with a BMI of 40. Additional comorbidities include HTN, prediabetes, EVER on CPAP. Patient has trialed other methods of weight loss including improving diet and exercise without success over at least three months. This medication is prescribed by or in consultation with a board-certified obesity and weight management physician (Dr. Marlin Vega or Dr. Lucian Vega). 12/06/2023:Weight: 296, BMI: 40.14. Reviewed SECA/goals for implementing sustainable lifestyle changes. Patient is encouraged to increase physical activity, goal 8-10k steps/day. Also discussed the importance of strength training with proper safety/body mechanics for maintenance of muscle mass/bone health. Discussed supplements to aid with sleep including cortisol administrative office manager, melatonin, magnesium glycinate. Patient encouraged to drink 60-80oz water/day. Reviewed the importance of adequate caloric/protein intake in the setting of medication-induce d appetite suppression. Goal of 100g protein/day. Plan to continue Wegovy 2.4 mg SC weekly. 10/06/2023: Weight: 295, BMI: 40.13. All questions answered to the patient's satisfaction. Patient demonstrates understanding of diagnosis and treatments discussed. Follow-up in 4 weeks, sooner should any questions/concern s arise. Case discussed with collaborating physician Marcos Vega who has reviewed the assessment/plan. Chart, medications, labs, and vital signs reviewed. Dictation completed with the use of [employer] voice recognition software, prone to medical misidentification s and grammatical errors. All errors are unintentional. Although the practitioner does try to identify and correct errors, some may be present. Please do not hesitate to contact the practitioner for clarification. Total time spent was 30 minutes with >50% on coordination of care and patient education. 07/26/2024 Nutritional counseling (ICD-10 - Z71.3) Eliezer is a 59-year-old male with a PMH of HTN, gout, prediabetes, EVER on CPAP that presents for weight management follow-up. Reviewed [facility] holistic and medical approach to weight loss with emphasis on lifestyle modification. 07/26/2024: Weight: 291.2, BMI: 39.5. Patient down 2 pounds. SECA reviewed, relatively unchanged. Patient encouraged to continue making health-conscious diet choices, recommending increasing protein intake and limiting carbs/starches. He is encouraged to continue walking regularly with added strength training 2-3 times weekly. Will increase dose of Zepbound to 10 mg SC weekly and follow-up in 4-6 weeks. 06/27/2024: Weight: 293, BMI: 39.7. Patient down 5 pounds.SECA reviewed, reveals loss of muscle mass only. Discussed importance of prioritizing protein intake, goal 100 g/day. The patient is also encouraged to incorporate strength training goal of preservation of adequate muscle mass. Plan to continue Zepbound 7.5 mg SC weekly and follow-up in 1 month. 05/24/2024: Weight: 298, BMI: 40. Patient up 1 pound. Seca reviewed, reveals 2 pounds of fat loss and maintenance of muscle mass. Patient is encouraged to continue making health-conscious diet choices. Discussed the importance of eating regularly with prioritization of protein intake-goal of 90 g/day. Patient is encouraged to continue exercising regularly and hydrating adequately. Plan increase dose of Zepbound to 7.5 mg SC weekly and follow-up in 1 month. 04/19/2024: Weight: 297, BMI: 40.3. Weight up 2 pounds.SECA reviewed, reveals 1 pound of fat gain and 1 pound of muscle mass gain. Patient is encouraged to continue exercising regularly. Discussed the importance of added strength training for maintenance of muscle mass. He is additionally encouraged to continue making health-conscious diet choices/practicin g portion control. Plan to reinitiate treatment with Zepbound 5 mg SC weekly and follow-up in 1 month. 02/16/2024: Weight: 295, BMI: 40. SECA reviewed, Unchanged, down a pound of muscle mass. The patient continues to have above average muscle mass. He is encouraged to continue practicing portion control and prioritizing intake of protein, fruits, vegetables, whole grains, water, etc. Patient is encouraged to continue walking regularly, discussed the importance of adding strength training for continued maintenance of muscle mass. Discussed the importance of prioritizing mental health and limiting stress when possible. Patient still has 1 dose of 2.5 mg left to take, will send for increased dose of Zepbound at 5 mg SC weekly with plan to follow-up in 5 weeks. 01/17/2024: Weight: 297, BMI: 40.3. SECA reviewed, relatively unchanged. The patient is encouraged to continue exercising regularly with added strength training for maintenance of muscle mass/bone health. Reviewed the importance of limiting carbs, sugars, etc. and considering healthier alternatives. The patient establish care with 07/2022 at which time he weighed 346 pounds. The patient has successfully been able to lose nearly 50 pounds with a combination of lifestyle changes and use of weight loss medications. As the patient has been on the maximum dose of Wegovy for 7 months with minimal weight loss patient would like to pursue an alternative medication, Zepbound. The patient is a great candidate for this medication, Rx for Zepbound 2.5 mg SC weekly sent to pharmacy. Reviewed proper use/administratio n and side effects. Reviewed expectations for PA process/insurance coverage. After consultation and careful review of medical history, this patient would benefit from Zepbound based off of the following criteria met: Patient is over the age of 16 with a BMI of 40. Additional comorbidities include HTN, prediabetes, EVER on CPAP. Patient has trialed other methods of weight loss including improving diet and exercise without success over at least three months. This medication is prescribed by or in consultation with a board-certified obesity and weight management physician (Dr. Marlin Vega or Dr. Lucian Vega). 12/06/2023:Weight: 296, BMI: 40.14. Reviewed SECA/goals for implementing sustainable lifestyle changes. Patient is encouraged to increase physical activity, goal 8-10k steps/day. Also discussed the importance of strength training with proper safety/body mechanics for maintenance of muscle mass/bone health. Discussed supplements to aid with sleep including cortisol administrative office manager, melatonin, magnesium glycinate. Patient encouraged to drink 60-80oz water/day. Reviewed the importance of adequate caloric/protein intake in the setting of medication-induce d appetite suppression. Goal of 100g protein/day. Plan to continue Wegovy 2.4 mg SC weekly. 10/06/2023: Weight: 295, BMI: 40.13. All questions answered to the patient's satisfaction. Patient demonstrates understanding of diagnosis and treatments discussed. Follow-up in 4 weeks, sooner should any questions/concern s arise. Case discussed with collaborating physician Marcos Vega who has reviewed the assessment/plan. Chart, medications, labs, and vital signs reviewed. Dictation completed with the use of [employer] voice recognition software, prone to medical misidentification s and grammatical errors. All errors are unintentional. Although the practitioner does try to identify and correct errors, some may be present. Please do not hesitate to contact the practitioner for clarification. Total time spent was 30 minutes with >50% on coordination of care and patient education. 06/27/2024 Soft tissue mass (ICD-10 - M79.89) Eliezer is a 59-year-old male with a PMH of HTN, gout, prediabetes, EVER on CPAP that presents for weight management follow-up. Reviewed [facility] holistic and medical approach to weight loss with emphasis on lifestyle modification. 06/27/2024: Weight: 293, BMI: 39.7. Patient down 5 pounds.SECA reviewed, reveals loss of muscle mass only. Discussed importance of prioritizing protein intake, goal 100 g/day. The patient is also encouraged to incorporate strength training goal of preservation of adequate muscle mass. Plan to continue Zepbound 7.5 mg SC weekly and follow-up in 1 month. #Mass: On exam there is a 10 cm circular mass protruding from the right shoulder. It is nontender to palpation without overlying erythema/edema. ? Lipoma/soft tissue mass. Patient encouraged to contact his primary care provider for continued evaluation. 05/24/2024: Weight: 298, BMI: 40. Patient up 1 pound. Seca reviewed, reveals 2 pounds of fat loss and maintenance of muscle mass. Patient is encouraged to continue making health-conscious diet choices. Discussed the importance of eating regularly with prioritization of protein intake-goal of 90 g/day. Patient is encouraged to continue exercising regularly and hydrating adequately. Plan increase dose of Zepbound to 7.5 mg SC weekly and follow-up in 1 month. 04/19/2024: Weight: 297, BMI: 40.3. Weight up 2 pounds.SECA reviewed, reveals 1 pound of fat gain and 1 pound of muscle mass gain. Patient is encouraged to continue exercising regularly. Discussed the importance of added strength training for maintenance of muscle mass. He is additionally encouraged to continue making health-conscious diet choices/practicin g portion control. Plan to reinitiate treatment with Zepbound 5 mg SC weekly and follow-up in 1 month. 02/16/2024: Weight: 295, BMI: 40. SECA reviewed, Unchanged, down a pound of muscle mass. The patient continues to have above average muscle mass. He is encouraged to continue practicing portion control and prioritizing intake of protein, fruits, vegetables, whole grains, water, etc. Patient is encouraged to continue walking regularly, discussed the importance of adding strength training for continued maintenance of muscle mass. Discussed the importance of prioritizing mental health and limiting stress when possible. Patient still has 1 dose of 2.5 mg left to take, will send for increased dose of Zepbound at 5 mg SC weekly with plan to follow-up in 5 weeks. 01/17/2024: Weight: 297, BMI: 40.3. SECA reviewed, relatively unchanged. The patient is encouraged to continue exercising regularly with added strength training for maintenance of muscle mass/bone health. Reviewed the importance of limiting carbs, sugars, etc. and considering healthier alternatives. The patient establish care with 07/2022 at which time he weighed 346 pounds. The patient has successfully been able to lose nearly 50 pounds with a combination of lifestyle changes and use of weight loss medications. As the patient has been on the maximum dose of Wegovy for 7 months with minimal weight loss patient would like to pursue an alternative medication, Zepbound. The patient is a great candidate for this medication, Rx for Zepbound 2.5 mg SC weekly sent to pharmacy. Reviewed proper use/administratio n and side effects. Reviewed expectations for PA process/insurance coverage. After consultation and careful review of medical history, this patient would benefit from Zepbound based off of the following criteria met: Patient is over the age of 16 with a BMI of 40. Additional comorbidities include HTN, prediabetes, EVER on CPAP. Patient has trialed other methods of weight loss including improving diet and exercise without success over at least three months. This medication is prescribed by or in consultation with a board-certified obesity and weight management physician (Dr. Marlin Vega or Dr. Lucian Vega). 12/06/2023:Weight: 296, BMI: 40.14. Reviewed SECA/goals for implementing sustainable lifestyle changes. Patient is encouraged to increase physical activity, goal 8-10k steps/day. Also discussed the importance of strength training with proper safety/body mechanics for maintenance of muscle mass/bone health. Discussed supplements to aid with sleep including cortisol administrative office manager, melatonin, magnesium glycinate. Patient encouraged to drink 60-80oz water/day. Reviewed the importance of adequate caloric/protein intake in the setting of medication-induce d appetite suppression. Goal of 100g protein/day. Plan to continue Wegovy 2.4 mg SC weekly. 10/06/2023: Weight: 295, BMI: 40.13. All questions answered to the patient's satisfaction. Patient demonstrates understanding of diagnosis and treatments discussed. Follow-up in 4 weeks, sooner should any questions/concern s arise. Case discussed with collaborating physician Marcos Vega who has reviewed the assessment/plan. Chart, medications, labs, and vital signs reviewed. Dictation completed with the use of [employer] voice recognition software, prone to medical misidentification s and grammatical errors. All errors are unintentional. Although the practitioner does try to identify and correct errors, some may be present. Please do not hesitate to contact the practitioner for clarification. Total time spent was 30 minutes with >50% on coordination of care and patient education. 05/24/2024 Nutritional counseling (ICD-10 - Z71.3) Eliezer is a 59-year-old male with a PMH of HTN, gout, prediabetes, EVER on CPAP that presents for weight management follow-up. Reviewed [facility] holistic and medical approach to weight loss with emphasis on lifestyle modification. 05/24/2024: Weight: 298, BMI: 40. Patient up 1 pound. Seca reviewed, reveals 2 pounds of fat loss and maintenance of muscle mass. Patient is encouraged to continue making health-conscious diet choices. Discussed the importance of eating regularly with prioritization of protein intake-goal of 90 g/day. Patient is encouraged to continue exercising regularly and hydrating adequately. Plan increase dose of Zepbound to 7.5 mg SC weekly and follow-up in 1 month. 04/19/2024: Weight: 297, BMI: 40.3. Weight up 2 pounds.SECA reviewed, reveals 1 pound of fat gain and 1 pound of muscle mass gain. Patient is encouraged to continue exercising regularly. Discussed the importance of added strength training for maintenance of muscle mass. He is additionally encouraged to continue making health-conscious diet choices/practicin g portion control. Plan to reinitiate treatment with Zepbound 5 mg SC weekly and follow-up in 1 month. 02/16/2024: Weight: 295, BMI: 40. SECA reviewed, Unchanged, down a pound of muscle mass. The patient continues to have above average muscle mass. He is encouraged to continue practicing portion control and prioritizing intake of protein, fruits, vegetables, whole grains, water, etc. Patient is encouraged to continue walking regularly, discussed the importance of adding strength training for continued maintenance of muscle mass. Discussed the importance of prioritizing mental health and limiting stress when possible. Patient still has 1 dose of 2.5 mg left to take, will send for increased dose of Zepbound at 5 mg SC weekly with plan to follow-up in 5 weeks. 01/17/2024: Weight: 297, BMI: 40.3. SECA reviewed, relatively unchanged. The patient is encouraged to continue exercising regularly with added strength training for maintenance of muscle mass/bone health. Reviewed the importance of limiting carbs, sugars, etc. and considering healthier alternatives. The patient establish care with 07/2022 at which time he weighed 346 pounds. The patient has successfully been able to lose nearly 50 pounds with a combination of lifestyle changes and use of weight loss medications. As the patient has been on the maximum dose of Wegovy for 7 months with minimal weight loss patient would like to pursue an alternative medication, Zepbound. The patient is a great candidate for this medication, Rx for Zepbound 2.5 mg SC weekly sent to pharmacy. Reviewed proper use/administratio n and side effects. Reviewed expectations for PA process/insurance coverage. After consultation and careful review of medical history, this patient would benefit from Zepbound based off of the following criteria met: Patient is over the age of 16 with a BMI of 40. Additional comorbidities include HTN, prediabetes, EVER on CPAP. Patient has trialed other methods of weight loss including improving diet and exercise without success over at least three months. This medication is prescribed by or in consultation with a board-certified obesity and weight management physician (Dr. Marlin Vega or Dr. Lucian Vega). 12/06/2023:Weight: 296, BMI: 40.14. Reviewed SECA/goals for implementing sustainable lifestyle changes. Patient is encouraged to increase physical activity, goal 8-10k steps/day. Also discussed the importance of strength training with proper safety/body mechanics for maintenance of muscle mass/bone health. Discussed supplements to aid with sleep including cortisol administrative office manager, melatonin, magnesium glycinate. Patient encouraged to drink 60-80oz water/day. Reviewed the importance of adequate caloric/protein intake in the setting of medication-induce d appetite suppression. Goal of 100g protein/day. Plan to continue Wegovy 2.4 mg SC weekly. 10/06/2023: Weight: 295, BMI: 40.13. All questions answered to the patient's satisfaction. Patient demonstrates understanding of diagnosis and treatments discussed. Follow-up in 4 weeks, sooner should any questions/concern s arise. Case discussed with collaborating physician Marcos Vega who has reviewed the assessment/plan. Chart, medications, labs, and vital signs reviewed. Dictation completed with the use of [employer] voice recognition software, prone to medical misidentification s and grammatical errors. All errors are unintentional. Although the practitioner does try to identify and correct errors, some may be present. Please do not hesitate to contact the practitioner for clarification. Total time spent was 30 minutes with >50% on coordination of care and patient education. 12/06/2023 Nutritional counseling (ICD-10 - Z71.3) Eliezer is a 58-year-old male with a PMH of HTN, gout, prediabetes, EVER on CPAP that presents for weight management follow-up. Reviewed [facility] holistic and medical approach to weight loss with emphasis on lifestyle modification. Patient is educated that a healthy lifestyle aids in combating obesity as well as reducing the risk of developing obesity-related medical complications including but not limited to diabetes and cardiovascular disease. Detailed education provided about taking steps to initiate sustainable lifestyle changes including incorporating regular physical activity, making healthy diet choices, and prioritizing mental health. Information provided about literature including The Food Rules by Zack Veloz and Eat Fat Get Lean by Dr Gray Alvarenga. Handouts including lifestyle checklist, protein content of food, low calorie snacks, and cholesterol information sheet provided. Diagnostic testing/ SECA scale offered. Discussed the importance of regular SECA scale measurements to ensure healthy weight loss. Patient established care as weight management patient 08/03/2022 his weight was 346. 12/06/2023:Weight: 296, BMI: 40.14. Reviewed SECA/goals for implementing sustainable lifestyle changes. Patient is encouraged to increase physical activity, goal 8-10k steps/day. Also discussed the importance of strength training with proper safety/body mechanics for maintenance of muscle mass/bone health. Discussed supplements to aid with sleep including cortisol administrative office manager, melatonin, magnesium glycinate. Patient encouraged to drink 60-80oz water/day. Reviewed the importance of adequate caloric/protein intake in the setting of medication-induce d appetite suppression. Goal of 100g protien/day. Plan to continue Wegovy 2.4 mg SC weekly. 10/06/2023: Weight: 295, BMI: 40.13. All questions answered to the patients satisfaction. Patient demonstrates understanding of diagnosis and treatments discussed. Follow-up in 4 weeks, sooner should any questions/concern s arise. Case discussed with collaborating physician Marcos Vega who has reviewed the assessment/plan. Chart, medications, labs, and vital signs reviewed. Dictation completed with the use of [employer] voice recognition software, prone to medical misidentification s and grammatical errors. All errors are unintentional. Although the practitioner does try to identify and correct errors, some may be present. Please do not hesitate to contact the practitioner for clarification. 02/16/2024 Prediabetes (ICD-10 - R73.03) Eliezer is a 58-year-old male with a PMH of HTN, gout, prediabetes, EVER on CPAP that presents for weight management follow-up. Reviewed [facility] holistic and medical approach to weight loss with emphasis on lifestyle modification. 02/16/2024: Weight: 295, BMI: 40. SECA reviewed, Unchanged, down a pound of muscle mass. The patient continues to have above average muscle mass. He is encouraged to continue practicing portion control and prioritizing intake of protein, fruits, vegetables, whole grains, water, etc. Patient is encouraged to continue walking regularly, discussed the importance of adding strength training for continued maintenance of muscle mass. Discussed the importance of prioritizing mental health and limiting stress when possible. Patient still has 1 dose of 2.5 mg left to take, will send for increased dose of Zepbound at 5 mg SC weekly with plan to follow-up in 5 weeks. 01/17/2024: Weight: 297, BMI: 40.3. SECA reviewed, relatively unchanged. The patient is encouraged to continue exercising regularly with added strength training for maintenance of muscle mass/bone health. Reviewed the importance of limiting carbs, sugars, etc. and considering healthier alternatives. The patient establish care with 07/2022 at which time he weighed 346 pounds. The patient has successfully been able to lose nearly 50 pounds with a combination of lifestyle changes and use of weight loss medications. As the patient has been on the maximum dose of Wegovy for 7 months with minimal weight loss patient would like to pursue an alternative medication, Zepbound. The patient is a great candidate for this medication, Rx for Zepbound 2.5 mg SC weekly sent to pharmacy. Reviewed proper use/administratio n and side effects. Reviewed expectations for PA process/insurance coverage. After consultation and careful review of medical history, this patient would benefit from Zepbound based off of the following criteria met: Patient is over the age of 16 with a BMI of 40. Additional comorbidities include HTN, prediabetes, EVER on CPAP. Patient has trialed other methods of weight loss including improving diet and exercise without success over at least three months. This medication is prescribed by or in consultation with a board-certified obesity and weight management physician (Dr. Marlin Vega or Dr. Lucian Vega). 12/06/2023:Weight: 296, BMI: 40.14. Reviewed SECA/goals for implementing sustainable lifestyle changes. Patient is encouraged to increase physical activity, goal 8-10k steps/day. Also discussed the importance of strength training with proper safety/body mechanics for maintenance of muscle mass/bone health. Discussed supplements to aid with sleep including cortisol administrative office manager, melatonin, magnesium glycinate. Patient encouraged to drink 60-80oz water/day. Reviewed the importance of adequate caloric/protein intake in the setting of medication-induce d appetite suppression. Goal of 100g protein/day. Plan to continue Wegovy 2.4 mg SC weekly. 10/06/2023: Weight: 295, BMI: 40.13. All questions answered to the patient's satisfaction. Patient demonstrates understanding of diagnosis and treatments discussed. Follow-up in 4 weeks, sooner should any questions/concern s arise. Case discussed with collaborating physician Marcos Vega who has reviewed the assessment/plan. Chart, medications, labs, and vital signs reviewed. Dictation completed with the use of [employer] voice recognition software, prone to medical misidentification s and grammatical errors. All errors are unintentional. Although the practitioner does try to identify and correct errors, some may be present. Please do not hesitate to contact the practitioner for clarification. Total time spent was 30 minutes with >50% on coordination of care and patient education. 01/17/2024 Prediabetes (ICD-10 - R73.03) Eliezer is a 58-year-old male with a PMH of HTN, gout, prediabetes, EVER on CPAP that presents for weight management follow-up. Reviewed [facility] holistic and medical approach to weight loss with emphasis on lifestyle modification. 01/17/2024: Weight: 297, BMI: 40.3. SECA reviewed, relatively unchanged. The patient is encouraged to continue exercising regularly with added strength training for maintenance of muscle mass/bone health. Reviewed the importance of limiting carbs, sugars, etc. and considering healthier alternatives. The patient establish care with 07/2022 at which time he weighed 346 pounds. The patient has successfully been able to lose nearly 50 pounds with a combination of lifestyle changes and use of weight loss medications. As the patient has been on the maximum dose of Wegovy for 7 months with minimal weight loss patient would like to pursue an alternative medication, Zepbound. The patient is a great candidate for this medication, Rx for Zepbound 2.5 mg SC weekly sent to pharmacy. Reviewed proper use/administratio n and side effects. Reviewed expectations for PA process/insurance coverage. After consultation and careful review of medical history, this patient would benefit from Zepbound based off of the following criteria met: Patient is over the age of 16 with a BMI of 40. Additional comorbidities include HTN, prediabetes, EVER on CPAP. Patient has trialed other methods of weight loss including improving diet and exercise without success over at least three months. This medication is prescribed by or in consultation with a board-certified obesity and weight management physician (Dr. Marlin Vega or Dr. Lucian Vega). 12/06/2023:Weight: 296, BMI: 40.14. Reviewed SECA/goals for implementing sustainable lifestyle changes. Patient is encouraged to increase physical activity, goal 8-10k steps/day. Also discussed the importance of strength training with proper safety/body mechanics for maintenance of muscle mass/bone health. Discussed supplements to aid with sleep including cortisol administrative office manager, melatonin, magnesium glycinate. Patient encouraged to drink 60-80oz water/day. Reviewed the importance of adequate caloric/protein intake in the setting of medication-induce d appetite suppression. Goal of 100g protein/day. Plan to continue Wegovy 2.4 mg SC weekly. 10/06/2023: Weight: 295, BMI: 40.13. All questions answered to the patient's satisfaction. Patient demonstrates understanding of diagnosis and treatments discussed. Follow-up in 4 weeks, sooner should any questions/concern s arise. Case discussed with collaborating physician Markell Vega who has reviewed the assessment/plan. Chart, medications, labs, and vital signs reviewed. Dictation completed with the use of [employer] voice recognition software, prone to medical misidentification s and grammatical errors. All errors are unintentional. Although the practitioner does try to identify and correct errors, some may be present. Please do not hesitate to contact the practitioner for clarification. Total time spent was 25 minutes with >50% on coordination of care and patient education. 01/17/2024 Nutritional counseling (ICD-10 - Z71.3) Eliezer is a 58-year-old male with a PMH of HTN, gout, prediabetes, EVER on CPAP that presents for weight management follow-up. Reviewed [facility] holistic and medical approach to weight loss with emphasis on lifestyle modification. 01/17/2024: Weight: 297, BMI: 40.3. SECA reviewed, relatively unchanged. The patient is encouraged to continue exercising regularly with added strength training for maintenance of muscle mass/bone health. Reviewed the importance of limiting carbs, sugars, etc. and considering healthier alternatives. The patient establish care with us 07/2022 at which time he weighed 346 pounds. The patient has successfully been able to lose nearly 50 pounds with a combination of lifestyle changes and use of weight loss medications. As the patient has been on the maximum dose of Wegovy for 7 months with minimal weight loss patient would like to pursue an alternative medication, Zepbound. The patient is a great candidate for this medication, Rx for Zepbound 2.5 mg SC weekly sent to pharmacy. Reviewed proper use/administratio n and side effects. Reviewed expectations for PA process/insurance coverage. After consultation and careful review of medical history, this patient would benefit from Zepbound based off of the following criteria met: Patient is over the age of 18 with a BMI of 40. Additional comorbidities include HTN, prediabetes, EVER on CPAP. Patient has trialed other methods of weight loss including improving diet and exercise without success over at least three months. This medication is prescribed by or in consultation with a board-certified obesity and weight management physician (Dr. Marlin Vega or Dr. Lucian Vega). 12/06/2023:Weight: 296, BMI: 40.14. Reviewed SECA/goals for implementing sustainable lifestyle changes. Patient is encouraged to increase physical activity, goal 8-10k steps/day. Also discussed the importance of strength training with proper safety/body mechanics for maintenance of muscle mass/bone health. Discussed supplements to aid with sleep including cortisol administrative office manager, melatonin, magnesium glycinate. Patient encouraged to drink 60-80oz water/day. Reviewed the importance of adequate caloric/protein intake in the setting of medication-induce d appetite suppression. Goal of 100g protein/day. Plan to continue Wegovy 2.4 mg SC weekly. 10/06/2023: Weight: 295, BMI: 40.13. All questions answered to the patient's satisfaction. Patient demonstrates understanding of diagnosis and treatments discussed. Follow-up in 4 weeks, sooner should any questions/concern s arise. Case discussed with collaborating physician Markell Vega who has reviewed the assessment/plan. Chart, medications, labs, and vital signs reviewed. Dictation completed with the use of [employer] voice recognition software, prone to medical misidentification s and grammatical errors. All errors are unintentional. Although the practitioner does try to identify and correct errors, some may be present. Please do not hesitate to contact the practitioner for clarification. Total time spent was 25 minutes with >50% on coordination of care and patient education. 02/16/2024 Nutritional counseling (ICD-10 - Z71.3) Eliezer is a 58-year-old male with a PMH of HTN, gout, prediabetes, EVER on CPAP that presents for weight management follow-up. Reviewed [facility] holistic and medical approach to weight loss with emphasis on lifestyle modification. 02/16/2024: Weight: 295, BMI: 40. SECA reviewed, Unchanged, down a pound of muscle mass. The patient continues to have above average muscle mass. He is encouraged to continue practicing portion control and prioritizing intake of protein, fruits, vegetables, whole grains, water, etc. Patient is encouraged to continue walking regularly, discussed the importance of adding strength training for continued maintenance of muscle mass. Discussed the importance of prioritizing mental health and limiting stress when possible. Patient still has 1 dose of 2.5 mg left to take, will send for increased dose of Zepbound at 5 mg SC weekly with plan to follow-up in 5 weeks. 01/17/2024: Weight: 297, BMI: 40.3. SECA reviewed, relatively unchanged. The patient is encouraged to continue exercising regularly with added strength training for maintenance of muscle mass/bone health. Reviewed the importance of limiting carbs, sugars, etc. and considering healthier alternatives. The patient establish care with us 07/2022 at which time he weighed 346 pounds. The patient has successfully been able to lose nearly 50 pounds with a combination of lifestyle changes and use of weight loss medications. As the patient has been on the maximum dose of Wegovy for 7 months with minimal weight loss patient would like to pursue an alternative medication, Zepbound. The patient is a great candidate for this medication, Rx for Zepbound 2.5 mg SC weekly sent to pharmacy. Reviewed proper use/administratio n and side effects. Reviewed expectations for PA process/insurance coverage. After consultation and careful review of medical history, this patient would benefit from Zepbound based off of the following criteria met: Patient is over the age of 18 with a BMI of 40. Additional comorbidities include HTN, prediabetes, EVER on CPAP. Patient has trialed other methods of weight loss including improving diet and exercise without success over at least three months. This medication is prescribed by or in consultation with a board-certified obesity and weight management physician (Dr. Marlin Vega or Dr. Lucian Vega). 12/06/2023:Weight: 296, BMI: 40.14. Reviewed SECA/goals for implementing sustainable lifestyle changes. Patient is encouraged to increase physical activity, goal 8-10k steps/day. Also discussed the importance of strength training with proper safety/body mechanics for maintenance of muscle mass/bone health. Discussed supplements to aid with sleep including cortisol administrative office manager, melatonin, magnesium glycinate. Patient encouraged to drink 60-80oz water/day. Reviewed the importance of adequate caloric/protein intake in the setting of medication-induce d appetite suppression. Goal of 100g protein/day. Plan to continue Wegovy 2.4 mg SC weekly. 10/06/2023: Weight: 295, BMI: 40.13. All questions answered to the patient's satisfaction. Patient demonstrates understanding of diagnosis and treatments discussed. Follow-up in 4 weeks, sooner should any questions/concern s arise. Case discussed with collaborating physician Marcos Vega who has reviewed the assessment/plan. Chart, medications, labs, and vital signs reviewed. Dictation completed with the use of [employer] voice recognition software, prone to medical misidentification s and grammatical errors. All errors are unintentional. Although the practitioner does try to identify and correct errors, some may be present. Please do not hesitate to contact the practitioner for clarification. Total time spent was 30 minutes with >50% on coordination of care and patient education. Plan Of Treatment Pending Test Test Name Order Date EKG 07/20/2022 HEMOGLOBIN A1c 07/07/2022 Next Appt Details Provider Name:LACY Figueroa, 09/13/2024 09:45:00 AM, [address] [facility] [address], [place], [address], Insurance Providers Payer Name Payer Address Payer Phone Subscriber Number Group Number Insured Name Patient Relationship to Insured Coverage Start Date Coverage End Date [facility] [address] [place] [address] [id number] [phone] Eliezer Bolton Self - patient is the insured 8 Medications Administered Medication Instructions Date of Administration Dosage Notes MICC B12 INJECTION 07/07/2022 1 MICC B12 INJECTION 08/18/2022 Lot#[id number] MICC B12 INJECTION 09/14/2022 MICC B12 INJECTION 11/18/2022 MICC B12 INJECTION 03/16/2023 1 mL Semaglutide 01/20/2023 .25 Semaglutide 01/26/2023 0.25 mg LRQ SQ Semaglutide 02/02/2023 0.25 mg LLQ SQ Semaglutide 02/09/2023 0.25 Semaglutide 02/16/2023 0.25 mg Semaglutide 02/23/2023 0.5 mg LRQ SQ Semaglutide 03/02/2023 0.5 mg Semaglutide 03/09/2023 0.5 mg Semaglutide 03/16/2023 0.5 mg Semaglutide 03/23/2023 0.5 mg Semaglutide 03/30/2023 1 Semaglutide 04/06/2023 1 mg Semaglutide 04/13/2023 1 mg Semaglutide 04/20/2023 1 Semaglutide 04/27/2023 1 mg Semaglutide 05/04/2023 1 mg Semaglutide 05/11/2023 1 mg Semaglutide 05/18/2023 1 mg Semaglutide 05/25/2023 1.5 mg R tricep SQ Semaglutide 06/01/2023 1.75 mg Semaglutide 06/08/2023 1.75 mg Semaglutide 06/15/2023 1.75 mg Semaglutide 06/22/2023 1.75 mg Semaglutide 06/30/2023 1.75 mg L tricep SQ Semaglutide 07/05/2023 1.75 mg R tricep SQ Medical (General) History Medical History History ICD Code EVER on CPAP G47.33 Back pain due to inflammatory process M5 4.89 BMI 40.0-44.9, adult Z68.41 Hypertension, unspecified type I10 Prediabetes 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
== END 2024-08-21 10:13 | disposition home or self-care (01) ==
LOC: HO.HGS 09:48
PROVIDERS: PCP Internal Medicine; Visit Provider Surgery
DX: D17.1 Benign lipomatous neoplasm of skin and subcutaneous tissue of trunk (principal)
CPT/HCPCS: 99204

== ENCOUNTER → 2024-08-21 09:47 | Outpatient (BNVA) | payer BC, SELFPAY | PROVIDERS: PCP Internal Medicine; Visit Provider Surgery ==

== ENCOUNTER 2024-08-29 08:05 | Day surgery (SDC) | payer BC, SELFPAY ==
[2024-08-27 12:42] VITALS: BMI 39.5
--- NOTE | 2024-08-28 09:53 | HO.ANESPROP2 ---
Documented by User: Melani Adame NP 08/28/24 09:54 HPI - Anesthesia Eval Consult details Narrative: 59yo M for Bilateral Excision of shoulder Lipoma PMFSH Active Problems Active Problems: All Active Problems Lipoma of torso (Acute) Past Medical History Medical History Low back pain Metabolic dysfunction-associated steatotic liver disease (MASLD) Chronic pain Obstructive sleep apnea syndrome in adult Insomnia Opioid dependence Morbid obesity Gouty arthropathy Carpal tunnel syndrome, bilateral HTN (hypertension) Family History Family History Father Non-Hodgkin lymphoma Morrow' syndrome Surgical History Surgical History Hx of right knee surgery Hx of carpal tunnel repair Social History Social History Alcohol intake: current Alcohol intake frequency: holidays/special occasions only Patient Tobacco Use Status: Never used Tobacco Use of substances other than those prescribed or required for medical reasons: Yes Substance Use Type Other:: edibles qhs for sleep Are you DNR?: No Advance Directives: No Advance Directives Information Provided: Yes Meds Allergies Allergy/AdvReac Type Severity Reaction Status Date / Time No Known Allergies Allergy Verified 08/29/24 08:50 Home Medications ?Medication ?Instructions ?Recorded ?Confirmed ?Last Taken ?Type allopurinol 100 mg tablet 100 mg PO DAILY 08/21/24 08/29/24 Unknown History losartan 100 1 tab PO DAILY 08/21/24 08/29/24 Unknown History mg-hydrochlorothiazide 25 mg tablet oxycodone 10 mg tablet 10 mg PO BID PRN Back Pain 08/21/24 08/29/24 Unknown History tirzepatide (weight loss) 10 10 mg subcut QWEEK 08/21/24 08/29/24 08/19/24 History mg/0.5 mL subcutaneous pen injector (Zepbound) Exam Height,Weight and Vital Signs: Height 6 ft Weight 131.995 kg Assessment and Plan Assessment Anesthesia Assessment: Chart Reviewed Documented by User: Kiara Quach MD 08/29/24 10:05 PMFSH Past Medical History Medical History Low back pain Metabolic dysfunction-associated steatotic liver disease (MASLD) Chronic pain Obstructive sleep apnea syndrome in adult Insomnia Opioid dependence Morbid obesity Gouty arthropathy Carpal tunnel syndrome, bilateral HTN (hypertension) Family History Family History Father Non-Hodgkin lymphoma Morrow' syndrome Family history of problems with anesthesia: No Surgical History Surgical History Hx of right knee surgery Hx of carpal tunnel repair History of Problems with Anesthesia: No Social History Social History Alcohol intake: current Alcohol intake frequency: holidays/special occasions only Patient Tobacco Use Status: Never used Tobacco Use of substances other than those prescribed or required for medical reasons: Yes Substance Use Type Other:: edibles qhs for sleep Are you DNR?: No Advance Directives: No Advance Directives Information Provided: Yes Meds Allergies Allergy/AdvReac Type Severity Reaction Status Date / Time No Known Allergies Allergy Verified 08/29/24 08:50 Home Medications ?Medication ?Instructions ?Recorded ?Confirmed ?Last Taken ?Type allopurinol 100 mg tablet 100 mg PO DAILY 08/21/24 08/29/24 Unknown History losartan 100 1 tab PO DAILY 08/21/24 08/29/24 Unknown History mg-hydrochlorothiazide 25 mg tablet oxycodone 10 mg tablet 10 mg PO BID PRN Back Pain 08/21/24 08/29/24 Unknown History tirzepatide (weight loss) 10 10 mg subcut QWEEK 08/21/24 08/29/24 08/19/24 History mg/0.5 mL subcutaneous pen injector (Zepbound) Exam Airway Mallampati Class: II TM Dist: >3cm Neck ROM: Full Heart: rrr Lungs: cta Assessment and Plan Assessment Anesthesia Assessment: Anesthesia Plan Discussed Final Anesthetic Review Family History of Problems with Anesthesia: No History of Problems with Anesthesia: No NPO: Yes ASA Class: III Final Preanesthetic Review: No Changes in Pt Med Stat, Meds/Allgs Chart Reviewed, Consent Obtained/Reviewed and Anes Risks/Benef Reviewed Patient Risk: Intermediate Procedure Risk: Low Anesthetic Plan Anesthetic Plan: GA and MAC: Disposition: Standard PACU
[2024-08-29 08:52] VITALS: BP 119/78; PULSE 65; RESP 15; TEMP 36.9; O2SAT 96; BMI 38.7
[2024-08-29] MEDS: Lactated Ringers 1,000 ML 100 ML IVCONT (09:14)
--- NOTE | 2024-08-29 10:05 | MHC.SHP ---
Pre-Procedural Eval Section A - 24 Hr Update-Section A only Date of Service: 08/29/24 The patient is an INPATIENT: No Changes since office visit: Yes Patient answered all questions; No Cold of Flu in the past 2 weeks, No New Medical Problems and No Changes in Medication The patient has been examined within 24 hours of the surgical procedure. The History & Physical has been completed within 30 days and I have reviewed it.: Yes Section B - Complete if H&P > 30 days Chief Complaint: Benign lipomatous neoplasm of skin and subcutaneou Allergies: Allergies Allergy/AdvReac Type Severity Reaction Status Date / Time No Known Allergies Allergy Verified 08/29/24 08:50 Plan Diagnosis/Plan: Unchanged I have reviewed the history and physical and performed a pertinent physical examination on my patient. No changes have occurred unless specified. Time Spent With Patient Time: Total time managing care of this patient today ____ minutes.
--- NOTE | 2024-08-29 11:41 | P.OP_ITS ---
Operative Note Operative Note Date of Service: 08/29/24 Narrative: Preoperative diagnosis: Lipoma bilateral shoulders Postoperative diagnosis: Same Procedure: Excision of lipoma bilateral shoulders and Surgeon: Kirby Boland MD Construction Rigger: Kim Christine PA-C; SAROJ Altman Anesthesia: General LMA Indications for procedure: 59-year-old male patient presenting with a large lipoma of the posterior right shoulder measuring approximately 10 cm in diameter. A 2nd lipoma in the left lateral shoulder measured approximately 3 cm in diameter. Operative findings: Right posterior shoulder submuscular lipoma measuring at least 10 cm in diameter. Left superficial shoulder lipoma measuring 3 cm in diameter Specimen: Right posterior shoulder lipoma, left shoulder lipoma Estimated blood loss: 10 mL Complications: None Procedure details: Patient was brought to the OR and placed in a supine position. After administering general anesthesia he was placed in prone position. The posterior shoulders bilaterally were prepped with ChloraPrep and draped in a sterile fashion. A surgical time-out was called the consent confirmed. Patient received preoperative antibiotics and Venodyne boots were in place. Beginning in the posterior right shoulder a longitudinal incision was made directly over the lipoma. Incision was carried out through subcutaneous tissue up to the muscular fascia. This was incised and split in the direction of the muscle fibers. Dissection was continued down through muscle into the lipoma. The lipoma was then sharply and bluntly dissected from the surrounding subcutaneous tissue. The lipoma was found to be densely adherent to the surrounding muscular tissue. Hemostasis was assured using electrocautery. When the entire lipoma was removed, the wounds were irrigated with saline solution and suctioned dry. Hemostasis was assured again with electrocautery. Additional local anesthesia was infiltrated in the subcutaneous tissue. Muscular tissue was then reapproximated using interrupted 3-0 Polysorb sutures. Dermis was reapproximated using interrupted 3-0 Polysorb sutures. Skin was closed using a running subcuticular 4-0 Polysorb suture. The left shoulder lipoma was also addressed in a similar fashion with a an incision directly over the lipoma. The dissection was continued down into the subcutaneous tissue up to the wall of the lipoma. This was then sharply dissected from the surrounding subcutaneous tissue. Hemostasis was assured using electrocautery. The lesion was passed off the table and sent to pathology for further examination. Dermis was then reapproximated using interrupted 3-0 Polysorb sutures. Skin was closed using a running subcuticular 4-0 Polysorb suture. Dressings consisting of Steri-Strips, 4 x 4 gauze and Tegaderm were then applied to both incisions. The patient tolerated the procedure well. Sponge, instrument, needle counts reported as correct. The patient was transferred to PACU in stable condition.
[2024-08-29 11:53] VITALS: BP 129/71; PULSE 87; RESP 18; TEMP 36.4; O2SAT 97
[2024-08-29 11:55] VITALS: BP 148/68; PULSE 78; RESP 18; O2SAT 96
[2024-08-29 12:00] VITALS: BP 137/77; PULSE 76; RESP 18; O2SAT 97
[2024-08-29 12:05] VITALS: BP 121/68; PULSE 70; RESP 18; O2SAT 96
[2024-08-29 12:15] VITALS: BP 126/73; PULSE 66; RESP 18; TEMP 36.1; O2SAT 94
== END 2024-08-29 12:31 | disposition home or self-care (01) ==
PROVIDERS: PCP Internal Medicine; Visit Provider Surgery
PROC: (CPT 23073; principal; 2024-08-29 10:10)
DX: D17.21 Benign lipomatous neoplasm of skin and subcutaneous tissue of right arm (principal); D17.22 Benign lipomatous neoplasm of skin and subcutaneous tissue of left arm; G89.29 Other chronic pain; M54.50 Low back pain, unspecified; Z79.891 Long term (current) use of opiate analgesic; M10.9 Gout, unspecified; I10 Essential (primary) hypertension; E88.89 Other specified metabolic disorders; G47.33 Obstructive sleep apnea (adult) (pediatric); E66.01 Morbid (severe) obesity due to excess calories; Z68.39 Body mass index [BMI] 39.0-39.9, adult; Z79.85 Long-term (current) use of injectable non-insulin antidiabetic drugs; Z79.899 Other long term (current) drug therapy; Z98.890 Other specified postprocedural states
CPT/HCPCS: 23073; 23071; 88304; J0131; J0690; J1100; J2003; J2250; J2405; J2704; J3010

== ENCOUNTER → 2024-08-29 08:05 | Outpatient (BNV) | payer BC, SELFPAY | PROVIDERS: PCP Internal Medicine; Visit Provider Surgery | DX: D17.21 Benign lipomatous neoplasm of skin and subcutaneous tissue of right arm (principal); D17.22 Benign lipomatous neoplasm of skin and subcutaneous tissue of left arm | CPT/HCPCS: 27071 ==

== ENCOUNTER 2024-09-13 13:04 | Outpatient (AMB) | payer BC, SELFPAY ==
--- NOTE | 2024-09-13 13:07 | A.OFFVIS_ITS ---
Vital Signs 09/13/24 13:13 Weight 291 lb BP 134/71 Blood Pressure Location Rt brachial Position Sitting Pulse 60 Intake Visit Reasons: s/p excision of bilateral shoulder lipoma Intake Note: Patient is seen in office for post op assessment post Lipoma bilateral shoulders. Pt c/o: reports incisions healing well. Denies pain, inflammation, oozing. surgery:08/29/24 Track Oiler Required: No Accompanied by: Self / Same As Patient Allergies No Known Allergies Allergy (Verified 09/13/24 13:08) Medication List - Last Reconciled 09/13/24 by Kirby Boland MD allopurinol 100 mg PO DAILY losartan-hydrochlorothiazide 100-25 mg 1 tab PO DAILY oxycodone 5 mg PO Q6H PRN oxycodone 10 mg PO BID PRN tirzepatide (weight loss) (Zepbound) 10 mg subcut QWEEK HPI Comments Details: Patient returns 1 week following excision of a large lipoma from the posterior right shoulder and a small lipoma from the lateral left shoulder. He tolerated the procedure well and feels fine today. He denies any problems following the procedure. Pathology confirmed mature lobulated adipose tissue in both specimens. He returns today for wound check. [facility] Medical History Low back pain Metabolic dysfunction-associated steatotic liver disease (MASLD) Chronic pain Obstructive sleep apnea syndrome in adult Insomnia Opioid dependence Morbid obesity Gouty arthropathy Carpal tunnel syndrome, bilateral HTN (hypertension) Surgical History (Updated 09/11/24 @ 15:20 by KALYN Maguire) Hx of excision of mass (08/29/24) Hx of right knee surgery Hx of carpal tunnel repair Family History Father Non-Hodgkin lymphoma Morrow' syndrome Social History Alcohol intake: current Alcohol intake frequency: holidays/special occasions only Patient Tobacco Use Status: Never used Tobacco Physical Exam Vital Signs: Last Vital Signs Pulse 60 09/13/24 13:13 BP 134/71 09/13/24 13:13 Const General: comfortable Nutritional Appearance: well nourished Orientation/consciousness: patient oriented x3 Resp Effort & Inspection: normal respiratory effort Back/Spine/Pelvis Other: Bilateral shoulder incisions are clean, dry, and intact. There is a small seroma associated with the right incision however no evidence of infection, hematoma or discharge. Neuro General: patient oriented x3 Extrem General: No edema Assessment & Plan Assessment & Plan (1) Lipoma of torso: Code(s): D17.1 - Benign lipomatous neoplasm of skin and subcutaneous tissue of trunk Category: Medical Plan 59-year-old male patient status post excision of bilateral shoulder lipomas. He tolerated the procedure well his wounds are healing nicely. He should follow up as needed. Coding Level of Care Code Global (28101) Diagnoses Lipoma of torso D17.1
--- OUTSIDE RECORDS SUMMARY | 2024-09-13 13:10 | XMS_ITS | Patient Health Record ---
Author Organization [facility] [address] Address [address] [place] [address] Care Team Providers Care Distance Education Director Name Role Phone PATTI SEWELL Unavailable [phone] VEGA, ZOFIALAUREEN Unavailable [phone] PatiAnnia rivera Unavailable [phone] JULIÁNLACY Unavailable [phone] Allergies No Known Allergies Reason For Referral No Information Medications Medication SIG (Take, Route, Frequency, Duration) Notes Start Date End Date Status oxyCODONE-Acetaminop hen 10-325 MG 1 tablet as needed Orally every 6 hrs Active Ondansetron 4 MG 1 tablet on the tongue and allow to dissolve Orally Once a day; Duration: 30 days 01/20/2023 Active Zepbound 10 MG/0.5ML Inject 10mg Subcutaneous once weekly; Duration: 30 days Active Wegovy 2.4 MG/0.75ML inject 2.4mg Subcutaneous once weekly; Duration: 30 days 07/05/2023 Not-Taking Losartan Potassium 100 MG 1 tablet Orally Once a day Half tab daily Not-Taking Semaglutide (1 MG/DOSE) 4 MG/3ML as directed Subcutaneous Not-Taking Allopurinol 300 MG 1 tablet Orally Once a day Active Social History Tobacco Use: Social History Observation Description Date Details (start date - stop date) Never Smoker NA - NA Tobacco Use/Smoking Question Answer Notes Are you a nonsmoker Problems Problem Type SNOMED Code ICD Code Onset Dates Problem Status W/U Status Risk Notes Problem Prediabetes (297106371) Prediabetes (R73.03) Active confirmed Problem Essential hypertension (42984773) Essential hypertension (I10) Active confirmed Problem Obesity (384149619) Obesity (BMI 30-39.9) (E66.9) Active confirmed Problem Obese class II (302974101077918 ) BMI 38.0-38.9,adult (Z68.38) Active confirmed Problem Obstructive sleep apnea syndrome (97174151) EVER on CPAP (G47.33) Active confirmed Problem 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) Chronic gout with tophus, unspecified cause, unspecified site (M1A.9XX1) Active confirmed Vital Signs Heart Rate 65 /min 09/13/2024 Oximetry 98 % 09/13/2024 Blood pressure diastolic 80 mm Hg 09/13/2024 Height 72 in 09/13/2024 Blood pressure systolic 118 mm Hg 09/13/2024 Weight 286.5 lbs 09/13/2024 BMI 38.85 kg/m2 09/13/2024 Encounters Encounter Location Date Provider Diagnosis [facility] [address] [address] 03/22/2024 LACY GALLEGO [facility] [address] [facility] [address] [place] [address] 10/06/2023 MARLIN VEGA BMI 40.0-44.9, adult Z68.41 ; Morbid (severe) obesity due to excess calories E66.01 and Back pain due to inflammatory process M54.89 [facility] [address] [address] 12/06/2023 LACY GALLEGO Morbid obesity E66.0 1 ; BMI 40.0-44.9, adult Z68.41 ; EVER on CPAP G47.33 ; Essential hypertension I10 ; Chronic gout with tophus, unspecified cause, unspecified site M1A.9XX1 ; Prediabetes R73.03 and Nutritional counseling Z71.3 [facility] [address] [address] 01/17/2024 LACY GALLEGO Morbid obesity E66.0 1 ; BMI 40.0-44.9, adult Z68.41 ; EVER on CPAP G47.33 ; Essential hypertension I10 ; Chronic gout with tophus, unspecified cause, unspecified site M1A.9XX1 ; Prediabetes R73.03 and Nutritional counseling Z71.3 [facility] [address] [address] 02/16/2024 LACY JULIÁN Morbid obesity E66.0 1 ; BMI 40.0-44.9, adult Z68.41 ; EVER on CPAP G47.33 ; Essential hypertension I10 ; Chronic gout with tophus, unspecified cause, unspecified site M1A.9XX1 ; Prediabetes R73.03 and Nutritional counseling Z71.[address] [facility] [address] [address] 04/19/2024 LACY JULIÁN Morbid obesity E66.0 1 ; BMI 40.0-44.9, adult Z68.41 ; EVER on CPAP G47.33 ; Essential hypertension I10 ; Prediabetes R73.03 and Nutritional counseling Z71.[address] [facility] [address] [address] 05/24/2024 LACY JULIÁN Morbid obesity E66.0 1 ; BMI 40.0-44.9, adult Z68.41 ; EVER on CPAP G47.33 ; Essential hypertension I10 ; Prediabetes R73.03 and Nutritional counseling Z71.[address] [facility] [address] [address] 06/27/2024 LACY JULIÁN Obesity (BMI 30-39.9 ) E66.9 ; BMI 39.0-39.9,adult Z68.39 ; EVER on CPAP G47.33 ; Essential hypertension I10 ; Prediabetes R73.03 ; Nutritional counseling Z71.3 and Soft tissue mass M79.89 [facility] [address] [address] 07/26/2024 LACY JULIÁN Obesity (BMI 30-39.9 ) E66.9 ; BMI 39.0-39.9,adult Z68.39 ; EVER on CPAP G47.33 ; Essential hypertension I10 ; Prediabetes R73.03 and Nutritional counseling Z71.[address] [facility] [address] [address] 09/13/2024 LACY JULIÁN Obesity (BMI 30-39.9 ) E66.9 ; BMI 38.0-38.9,adult Z68.38 ; EVER on CPAP G47.33 ; Essential hypertension I10 ; Prediabetes R73.03 and Nutritional counseling Z71.[address] [facility] [address] [place] [address] 10/06/2023 MARLIN VEGA [facility] [address] [address] 01/17/2024 MARLIN VEGA [facility] [address] [address] 06/21/2024 PATTI DONATO [facility] [address] [address] 06/21/2024 PATTI BORHOT [facility] [address] [address] 06/23/2024 PATTIHUNTER JOSET [facility] [address] [address] 07/31/2024 LACY GALLEGO [facility] [address] [address] 08/02/2024 PATTI SEWELL Assessments Encounter Date Diagnosis (ICD Code) Assessment Notes Treatment Notes Treatment Clinical Notes Section Notes 10/06/2023 Morbid (severe) obesity due to excess calories (ICD-10 - E66.01) States he saw his primary care provider recently, had lab work done. States he was able to be taken off his Loscorneliusen for high blood pressure. which he had [...] supplements to aid with sleep including cortisol manager strategic alliances, melatonin, magnesium glycinate. Patient encouraged to drink [...] reviewed. Dictation completed with the use of [employer] voice recognition software, prone to medical misidentification [...] supplements to aid with sleep including cortisol manager strategic alliances, melatonin, magnesium glycinate. Patient encouraged to drink [...] reviewed. Dictation completed with the use of [employer] voice recognition software, prone to medical misidentification [...] supplements to aid with sleep including cortisol manager strategic alliances, melatonin, magnesium glycinate. Patient encouraged to drink [...] reviewed. Dictation completed with the use of [employer] voice recognition software, prone to medical misidentification [...] supplements to aid with sleep including cortisol manager strategic alliances, melatonin, magnesium glycinate. Patient encouraged to drink [...] arise. Case discussed with collaborating physician Marcos Veag who has reviewed the assessment/plan. Chart, medications, labs, and vital signs reviewed. Dictation completed with the use of [employer] voice recognition software, prone to medical misidentification [...] supplements to aid with sleep including cortisol manager strategic alliances, melatonin, magnesium glycinate. Patient encouraged to drink [...] reviewed. Dictation completed with the use of [employer] voice recognition software, prone to medical misidentification [...] supplements to aid with sleep including cortisol manager strategic alliances, melatonin, magnesium glycinate. Patient encouraged to drink [...] reviewed. Dictation completed with the use of [employer] voice recognition software, prone to medical misidentification [...] supplements to aid with sleep including cortisol manager strategic alliances, melatonin, magnesium glycinate. Patient encouraged to drink [...] reviewed. Dictation completed with the use of [employer] voice recognition software, prone to medical misidentification [...] supplements to aid with sleep including cortisol manager strategic alliances, melatonin, magnesium glycinate. Patient encouraged to drink [...] reviewed. Dictation completed with the use of [employer] voice recognition software, prone to medical misidentification [...] supplements to aid with sleep including cortisol manager strategic alliances, melatonin, magnesium glycinate. Patient encouraged to drink [...] reviewed. Dictation completed with the use of [employer] voice recognition software, prone to medical misidentification [...] supplements to aid with sleep including cortisol manager strategic alliances, melatonin, magnesium glycinate. Patient encouraged to drink [...] reviewed. Dictation completed with the use of [employer] voice recognition software, prone to medical misidentification [...] supplements to aid with sleep including cortisol manager strategic alliances, melatonin, magnesium glycinate. Patient encouraged to drink [...] reviewed. Dictation completed with the use of [employer] voice recognition software, prone to medical misidentification s and grammatical errors. All errors are unintentional. Although the practitioner does try to identify and correct errors, some may be present. Please do not hesitate to contact the practitioner for clarification. Total time spent was 30 minutes with >50% on coordination of care and patient education. 09/13/2024 Obesity (BMI 30-39.9) (ICD-10 - E66.9) Eliezer is a 59-year-old male with a PMH of HTN, gout, prediabetes, EVER on CPAP that presents for weight management follow-up. Reviewed [facility] holistic and medical approach to weight loss with emphasis on lifestyle modification. 09/13/2024: Weight: 286.5, BMI: 38.6. (-5lbs) SECA reviewed, reveals fat loss and mild improvement in muscle mass. Patient encouraged to continue making health-conscious diet choices and prioritizing protein intake. Discussed importance of adequate hydration and regular physical activity. Will continue Zepbound 10 mg SC weekly and follow-up in 6 weeks. 07/26/2024: Weight: 291.2, BMI: 39.5. (-2lb) 06/27/2024: Weight: 293, BMI: 39.7. (-5lb) 05/24/2024: Weight: 298, BMI: 40. (+1lb) 04/19/2024: Weight: 297, BMI: 40.3. (+2lb) 02/16/2024: Weight: 295, BMI: 40. (-2lb) 01/17/2024: Weight: 297, BMI: 40.3. (+1lb) 12/06/2023:Weight: 296, BMI: 40.14. (+1lb) 10/06/2023: Weight: 295, BMI: 40.13. All questions answered to the patient's satisfaction. Patient demonstrates understanding of diagnosis and treatments discussed. Follow-up in 4 weeks, sooner should any questions/concern s arise. Case discussed with collaborating physician Marcos Vega who has reviewed the assessment/plan. Chart, medications, labs, and vital signs reviewed. Dictation completed with the use of [employer] voice recognition software, prone to medical misidentification s and grammatical errors. All errors are unintentional. Although the practitioner does try to identify and correct errors, some may be present. Please do not hesitate to contact the practitioner for clarification. Total time spent was 30 minutes with >50% on coordination of care and patient education. 09/13/2024 BMI 38.0-38.9,adult (ICD-10 - Z68.38) Eliezer is a 59-year-old male with a PMH of HTN, gout, prediabetes, VEER on CPAP that presents for weight management follow-up. Reviewed [facility] holistic and medical approach to weight loss with emphasis on lifestyle modification. 09/13/2024: Weight: 286.5, BMI: 38.6. (-5lbs) SECA reviewed, reveals fat loss and mild improvement in muscle mass. Patient encouraged to continue making health-conscious diet choices and prioritizing protein intake. Discussed importance of adequate hydration and regular physical activity. Will continue Zepbound 10 mg SC weekly and follow-up in 6 weeks. 07/26/2024: Weight: 291.2, BMI: 39.5. (-2lb) 06/27/2024: Weight: 293, BMI: 39.7. (-5lb) 05/24/2024: Weight: 298, BMI: 40. (+1lb) 04/19/2024: Weight: 297, BMI: 40.3. (+2lb) 02/16/2024: Weight: 295, BMI: 40. (-2lb) 01/17/2024: Weight: 297, BMI: 40.3. (+1lb) 12/06/2023:Weight: 296, BMI: 40.14. (+1lb) 10/06/2023: Weight: 295, BMI: 40.13. All questions answered to the patient's satisfaction. Patient demonstrates understanding of diagnosis and treatments discussed. Follow-up in 4 weeks, sooner should any questions/concern s arise. Case discussed with collaborating physician Marcos Vega who has reviewed the assessment/plan. Chart, medications, labs, and vital signs reviewed. Dictation completed with the use of [employer] voice recognition software, prone to medical misidentification s and grammatical errors. All errors are unintentional. Although the practitioner does try to identify and correct errors, some may be present. Please do not hesitate to contact the practitioner for clarification. Total time spent was 30 minutes with >50% on coordination of care and patient education. 09/13/2024 EVER on CPAP (ICD-10 - G47.33) Eliezer is a 59-year-old male with a PMH of HTN, gout, prediabetes, EVER on CPAP that presents for weight management follow-up. Reviewed [facility] holistic and medical approach to weight loss with emphasis on lifestyle modification. 09/13/2024: Weight: 286.5, BMI: 38.6. (-5lbs) SECA reviewed, reveals fat loss and mild improvement in muscle mass. Patient encouraged to continue making health-conscious diet choices and prioritizing protein intake. Discussed importance of adequate hydration and regular physical activity. Will continue Zepbound 10 mg SC weekly and follow-up in 6 weeks. 07/26/2024: Weight: 291.2, BMI: 39.5. (-2lb) 06/27/2024: Weight: 293, BMI: 39.7. (-5lb) 05/24/2024: Weight: 298, BMI: 40. (+1lb) 04/19/2024: Weight: 297, BMI: 40.3. (+2lb) 02/16/2024: Weight: 295, BMI: 40. (-2lb) 01/17/2024: Weight: 297, BMI: 40.3. (+1lb) 12/06/2023:Weight: 296, BMI: 40.14. (+1lb) 10/06/2023: Weight: 295, BMI: 40.13. All questions answered to the patient's satisfaction. Patient demonstrates understanding of diagnosis and treatments discussed. Follow-up in 4 weeks, sooner should any questions/concern s arise. Case discussed with collaborating physician Marcos Vega who has reviewed the assessment/plan. Chart, medications, labs, and vital signs reviewed. Dictation completed with the use of [employer] voice recognition software, prone to medical misidentification [...] supplements to aid with sleep including cortisol manager strategic alliances, melatonin, magnesium glycinate. Patient encouraged to drink [...] reviewed. Dictation completed with the use of [employer] voice recognition software, prone to medical misidentification [...] supplements to aid with sleep including cortisol manager strategic alliances, melatonin, magnesium glycinate. Patient encouraged to drink [...] arise. Case discussed with collaborating physician Marcos eVga who has reviewed the assessment/plan. Chart, medications, labs, and vital signs reviewed. Dictation completed with the use of [employer] voice recognition software, prone to medical misidentification [...] supplements to aid with sleep including cortisol manager strategic alliances, melatonin, magnesium glycinate. Patient encouraged to drink [...] reviewed. Dictation completed with the use of [employer] voice recognition software, prone to medical misidentification [...] supplements to aid with sleep including cortisol manager strategic alliances, melatonin, magnesium glycinate. Patient encouraged to drink [...] reviewed. Dictation completed with the use of [employer] voice recognition software, prone to medical misidentification [...] supplements to aid with sleep including cortisol manager strategic alliances, melatonin, magnesium glycinate. Patient encouraged to drink [...] reviewed. Dictation completed with the use of [employer] voice recognition software, prone to medical misidentification [...] supplements to aid with sleep including cortisol manager strategic alliances, melatonin, magnesium glycinate. Patient encouraged to drink [...] reviewed. Dictation completed with the use of [employer] voice recognition software, prone to medical misidentification [...] supplements to aid with sleep including cortisol manager strategic alliances, melatonin, magnesium glycinate. Patient encouraged to drink [...] reviewed. Dictation completed with the use of [employer] voice recognition software, prone to medical misidentification [...] on counseling and coordinating care Plan. 12/06/2023 Essential hypertension (ICD-10 - I10) Eliezer [...] supplements to aid with sleep including cortisol manager strategic alliances, melatonin, magnesium glycinate. Patient encouraged to drink [...] reviewed. Dictation completed with the use of [employer] voice recognition software, prone to medical misidentification s and grammatical errors. All errors are unintentional. Although the practitioner does try to identify and correct errors, some may be present. Please do not hesitate to contact the practitioner for clarification. 01/17/2024 EVER on CPAP (ICD-10 - G47.33) Eliezer [...] supplements to aid with sleep including cortisol manager strategic alliances, melatonin, magnesium glycinate. Patient encouraged to drink [...] reviewed. Dictation completed with the use of [employer] voice recognition software, prone to medical misidentification [...] supplements to aid with sleep including cortisol manager strategic alliances, melatonin, magnesium glycinate. Patient encouraged to drink [...] reviewed. Dictation completed with the use of [employer] voice recognition software, prone to medical misidentification [...] supplements to aid with sleep including cortisol manager strategic alliances, melatonin, magnesium glycinate. Patient encouraged to drink [...] reviewed. Dictation completed with the use of [employer] voice recognition software, prone to medical misidentification s and grammatical errors. All errors are unintentional. Although the practitioner does try to identify and correct errors, some may be present. Please do not hesitate to contact the practitioner for clarification. Total time spent was 30 minutes with >50% on coordination of care and patient education. 04/19/2024 Essential hypertension (ICD-10 - I10) Eliezer [...] supplements to aid with sleep including cortisol manager strategic alliances, melatonin, magnesium glycinate. Patient encouraged to drink [...] reviewed. Dictation completed with the use of [employer] voice recognition software, prone to medical misidentification [...] supplements to aid with sleep including cortisol manager strategic alliances, melatonin, magnesium glycinate. Patient encouraged to drink [...] reviewed. Dictation completed with the use of [employer] voice recognition software, prone to medical misidentification [...] supplements to aid with sleep including cortisol manager strategic alliances, melatonin, magnesium glycinate. Patient encouraged to drink [...] reviewed. Dictation completed with the use of [employer] voice recognition software, prone to medical misidentification s and grammatical errors. All errors are unintentional. Although the practitioner does try to identify and correct errors, some may be present. Please do not hesitate to contact the practitioner for clarification. Total time spent was 30 minutes with >50% on coordination of care and patient education. 09/13/2024 Essential hypertension (ICD-10 - I10) Eliezer is a 59-year-old male with a PMH of HTN, gout, prediabetes, EVER on CPAP that presents for weight management follow-up. Reviewed [facility] holistic and medical approach to weight loss with emphasis on lifestyle modification. 09/13/2024: Weight: 286.5, BMI: 38.6. (-5lbs) SECA reviewed, reveals fat loss and mild improvement in muscle mass. Patient encouraged to continue making health-conscious diet choices and prioritizing protein intake. Discussed importance of adequate hydration and regular physical activity. Will continue Zepbound 10 mg SC weekly and follow-up in 6 weeks. 07/26/2024: Weight: 291.2, BMI: 39.5. (-2lb) 06/27/2024: Weight: 293, BMI: 39.7. (-5lb) 05/24/2024: Weight: 298, BMI: 40. (+1lb) 04/19/2024: Weight: 297, BMI: 40.3. (+2lb) 02/16/2024: Weight: 295, BMI: 40. (-2lb) 01/17/2024: Weight: 297, BMI: 40.3. (+1lb) 12/06/2023:Weight: 296, BMI: 40.14. (+1lb) 10/06/2023: Weight: 295, BMI: 40.13. All questions answered to the patient's satisfaction. Patient demonstrates understanding of diagnosis and treatments discussed. Follow-up in 4 weeks, sooner should any questions/concern s arise. Case discussed with collaborating physician Marcos Vega who has reviewed the assessment/plan. Chart, medications, labs, and vital signs reviewed. Dictation completed with the use of [employer] voice recognition software, prone to medical misidentification s and grammatical errors. All errors are unintentional. Although the practitioner does try to identify and correct errors, some may be present. Please do not hesitate to contact the practitioner for clarification. Total time spent was 30 minutes with >50% on coordination of care and patient education. 09/13/2024 Prediabetes (ICD-10 - R73.03) Eliezer is a 59-year-old male with a PMH of HTN, gout, prediabetes, EVER on CPAP that presents for weight management follow-up. Reviewed [facility] holistic and medical approach to weight loss with emphasis on lifestyle modification. 09/13/2024: Weight: 286.5, BMI: 38.6. (-5lbs) SECA reviewed, reveals fat loss and mild improvement in muscle mass. Patient encouraged to continue making health-conscious diet choices and prioritizing protein intake. Discussed importance of adequate hydration and regular physical activity. Will continue Zepbound 10 mg SC weekly and follow-up in 6 weeks. 07/26/2024: Weight: 291.2, BMI: 39.5. (-2lb) 06/27/2024: Weight: 293, BMI: 39.7. (-5lb) 05/24/2024: Weight: 298, BMI: 40. (+1lb) 04/19/2024: Weight: 297, BMI: 40.3. (+2lb) 02/16/2024: Weight: 295, BMI: 40. (-2lb) 01/17/2024: Weight: 297, BMI: 40.3. (+1lb) 12/06/2023:Weight: 296, BMI: 40.14. (+1lb) 10/06/2023: Weight: 295, BMI: 40.13. All questions answered to the patient's satisfaction. Patient demonstrates understanding of diagnosis and treatments discussed. Follow-up in 4 weeks, sooner should any questions/concern s arise. Case discussed with collaborating physician Marcos Vega who has reviewed the assessment/plan. Chart, medications, labs, and vital signs reviewed. Dictation completed with the use of [employer] voice recognition software, prone to medical misidentification [...] supplements to aid with sleep including cortisol manager strategic alliances, melatonin, magnesium glycinate. Patient encouraged to drink [...] reviewed. Dictation completed with the use of [employer] voice recognition software, prone to medical misidentification [...] supplements to aid with sleep including cortisol manager strategic alliances, melatonin, magnesium glycinate. Patient encouraged to drink [...] reviewed. Dictation completed with the use of [employer] voice recognition software, prone to medical misidentification [...] supplements to aid with sleep including cortisol manager strategic alliances, melatonin, magnesium glycinate. Patient encouraged to drink [...] reviewed. Dictation completed with the use of [employer] voice recognition software, prone to medical misidentification [...] supplements to aid with sleep including cortisol manager strategic alliances, melatonin, magnesium glycinate. Patient encouraged to drink [...] reviewed. Dictation completed with the use of [employer] voice recognition software, prone to medical misidentification [...] supplements to aid with sleep including cortisol manager strategic alliances, melatonin, magnesium glycinate. Patient encouraged to drink [...] reviewed. Dictation completed with the use of [employer] voice recognition software, prone to medical misidentification [...] supplements to aid with sleep including cortisol manager strategic alliances, melatonin, magnesium glycinate. Patient encouraged to drink [...] reviewed. Dictation completed with the use of [employer] voice recognition software, prone to medical misidentification [...] supplements to aid with sleep including cortisol manager strategic alliances, melatonin, magnesium glycinate. Patient encouraged to drink [...] reviewed. Dictation completed with the use of [employer] voice recognition software, prone to medical misidentification s and grammatical errors. All errors are unintentional. Although the practitioner does try to identify and correct errors, some may be present. Please do not hesitate to contact the practitioner for clarification. 12/06/2023 Prediabetes (ICD-10 - R73.03) Eliezer is [...] supplements to aid with sleep including cortisol manager [employer], melatonin, magnesium glycinate. Patient encouraged to drink [...] reviewed. Dictation completed with the use of [employer] voice recognition software, prone to medical misidentification [...] supplements to aid with sleep including cortisol manager [employer], melatonin, magnesium glycinate. Patient encouraged to drink [...] reviewed. Dictation completed with the use of [employer] voice recognition software, prone to medical misidentification s and grammatical errors. All errors are unintentional. Although the practitioner does try to identify and correct errors, some may be present. Please do not hesitate to contact the practitioner for clarification. Total time spent was 30 minutes with >50% on coordination of care and patient education. 01/17/2024 Chronic gout with tophus, unspecified cause, [...] supplements to aid with sleep including cortisol manager [employer], melatonin, magnesium glycinate. Patient encouraged to drink [...] reviewed. Dictation completed with the use of [employer] voice recognition software, prone to medical misidentification [...] supplements to aid with sleep including cortisol manager [employer], melatonin, magnesium glycinate. Patient encouraged to drink [...] reviewed. Dictation completed with the use of [employer] voice recognition software, prone to medical misidentification [...] supplements to aid with sleep including cortisol manager [employer], melatonin, magnesium glycinate. Patient encouraged to drink [...] reviewed. Dictation completed with the use of [employer] voice recognition software, prone to medical misidentification s and grammatical errors. All errors are unintentional. Although the practitioner does try to identify and correct errors, some may be present. Please do not hesitate to contact the practitioner for clarification. Total time spent was 30 minutes with >50% on coordination of care and patient education. 09/13/2024 Nutritional counseling (ICD-10 - Z71.3) Eliezer is a 59-year-old male with a PMH of HTN, gout, prediabetes, EVER on CPAP that presents for weight management follow-up. Reviewed [facility] holistic and medical approach to weight loss with emphasis on lifestyle modification. 09/13/2024: Weight: 286.5, BMI: 38.6. (-5lbs) SECA reviewed, reveals fat loss and mild improvement in muscle mass. Patient encouraged to continue making health-conscious diet choices and prioritizing protein intake. Discussed importance of adequate hydration and regular physical activity. Will continue Zepbound 10 mg SC weekly and follow-up in 6 weeks. 07/26/2024: Weight: 291.2, BMI: 39.5. (-2lb) 06/27/2024: Weight: 293, BMI: 39.7. (-5lb) 05/24/2024: Weight: 298, BMI: 40. (+1lb) 04/19/2024: Weight: 297, BMI: 40.3. (+2lb) 02/16/2024: Weight: 295, BMI: 40. (-2lb) 01/17/2024: Weight: 297, BMI: 40.3. (+1lb) 12/06/2023:Weight: 296, BMI: 40.14. (+1lb) 10/06/2023: Weight: 295, BMI: 40.13. All questions answered to the patient's satisfaction. Patient demonstrates understanding of diagnosis and treatments discussed. Follow-up in 4 weeks, sooner should any questions/concern s arise. Case discussed with collaborating physician Marcos Vega who has reviewed the assessment/plan. Chart, medications, labs, and vital signs reviewed. Dictation completed with the use of [employer] voice recognition software, prone to medical misidentification [...] supplements to aid with sleep including cortisol manager [employer], melatonin, magnesium glycinate. Patient encouraged to drink [...] reviewed. Dictation completed with the use of [employer] voice recognition software, prone to medical misidentification [...] supplements to aid with sleep including cortisol manager [employer], melatonin, magnesium glycinate. Patient encouraged to drink [...] reviewed. Dictation completed with the use of [employer] voice recognition software, prone to medical misidentification [...] supplements to aid with sleep including cortisol manager [employer], melatonin, magnesium glycinate. Patient encouraged to drink [...] reviewed. Dictation completed with the use of [employer] voice recognition software, prone to medical misidentification s and grammatical errors. All errors are unintentional. Although the practitioner does try to identify and correct errors, some may be present. Please do not hesitate to contact the practitioner for clarification. Total time spent was 30 minutes with >50% on coordination of care and patient education. 02/16/2024 Prediabetes (ICD-10 - R73.03) Eliezer is [...] supplements to aid with sleep including cortisol manager [employer], melatonin, magnesium glycinate. Patient encouraged to drink [...] reviewed. Dictation completed with the use of [employer] voice recognition software, prone to medical misidentification [...] supplements to aid with sleep including cortisol manager [employer], melatonin, magnesium glycinate. Patient encouraged to drink [...] reviewed. Dictation completed with the use of [employer] voice recognition software, prone to medical misidentification [...] supplements to aid with sleep including cortisol manager [employer], melatonin, magnesium glycinate. Patient encouraged to drink [...] reviewed. Dictation completed with the use of [employer] voice recognition software, prone to medical misidentification [...] supplements to aid with sleep including cortisol manager [employer], melatonin, magnesium glycinate. Patient encouraged to drink [...] reviewed. Dictation completed with the use of [employer] voice recognition software, prone to medical misidentification s and grammatical errors. All errors are unintentional. Although the practitioner does try to identify and correct errors, some may be present. Please do not hesitate to contact the practitioner for clarification. 02/16/2024 Nutritional counseling (ICD-10 - Z71.3) Eliezer [...] supplements to aid with sleep including cortisol manager [employer], melatonin, magnesium glycinate. Patient encouraged to drink [...] reviewed. Dictation completed with the use of [employer] voice recognition software, prone to medical misidentification [...] supplements to aid with sleep including cortisol manager [employer], melatonin, magnesium glycinate. Patient encouraged to drink [...] reviewed. Dictation completed with the use of [employer] voice recognition software, prone to medical misidentification [...] A1c 07/07/2022 Next Appt Details Provider Name:LACY HAIR Henry, 11/01/2024 09:30:00 AM, [address] [place] [address] [id number], [place], [address], Insurance Providers Payer Name Payer Address Payer Phone Subscriber Number Group Number Insured Name Patient Relationship to Insured Coverage Start Date Coverage End Date [facility] [address] [place] [address] [id number] [phone] Eliezer Bolton Self - patient is the insured 8 Medications Administered Medication Instructions Date of Administration Dosage Notes MICC B12 INJECTION 07/07/2022 1 MICC B12 INJECTION 08/18/2022 Lot#[id number] MICC B12 INJECTION 09/14/2022 MICC B12 INJECTION [...] Surgical History Surgery Date(Month/Year) knee surgery 1997 Lipoma removal 08/2024
[2024-09-13 13:13] VITALS: BP 134/71; PULSE 60
== END 2024-09-13 13:17 | disposition home or self-care (01) ==
LOC: HO.HGS 13:05
PROVIDERS: PCP Internal Medicine; Visit Provider Surgery
DX: D17.1 Benign lipomatous neoplasm of skin and subcutaneous tissue of trunk (principal)
CPT/HCPCS: 99024